=== PATIENT | male | born 1945 | race Caucasian/White ===

== ENCOUNTER 2017-02-03 17:33 | Emergency (ER) | payer BC ==
[2017-02-03 18:12] LABS: Hematocrit 40 % (42-52); Hemoglobin 13.2 g/dl (14.0-18.0); Mean Corpuscular HGB Conc 33 g/dl (31-36); Mean Corpuscular Hemoglobin 32 pg (27-31); Mean Corpuscular Volume 96 fL (80-94); Mean Platelet Volume 8 um3 (7.4-10.4); Red Blood Count 4.12 10^6/ul (4.0-5.4); Red Cell Distribution Width 13 % (10.5-15); White Blood Count 7.8 10^3/ul (3.5-10.8)
[2017-02-03 18:27] LABS: Albumin 4.4 g/dL (3.2-5.2); BUN/Creatinine Ratio 22.3 (8-20); Calcium 9.8 mg/dL (8.6-10.3); EGFR African American 56.5 (>60); EGFR Non-African American 43.9 (>60); Globulin 3.6 g/dL (2-4); Magnesium 1.9 mg/dL (1.9-2.7); Potassium 4.6 mmol/L (3.5-5.0); Total Bilirubin 0.4 mg/dL (0.2-1.0)
[2017-02-03 18:29] LABS: Troponin I 0.03 ng/mL (<0.04)
--- NOTE | 2017-02-03 18:54 | RAD ---
INDICATION: Bradycardia COMPARISON: Chest x-ray dated August 06, 2012 TECHNIQUE: Single AP portable view of the chest was obtained. FINDINGS: Image quality is compromised due to the relative inferiority of a portable chest x-ray. Stable postsurgical findings include sternotomy wires. There is mild cardiomegaly. There is faint atherosclerotic calcification overlying the arch of the aorta. The pulmonary vasculature is indistinct and mildly engorged. There are densities obscuring the bilateral lung bases and causing bilateral costophrenic angle blunting. IMPRESSION: Chest x-ray findings are most consistent with exacerbation of congestive heart failure possibly with atelectasis at the bilateral lung bases.
[2017-02-03 18:56] LABS: TSH (Thyroid Stimulating Horm) 3.39 mcIU/mL (0.34-5.60)
[2017-02-03 19:39] VITALS: BP 160/60
--- NOTE | 2017-02-03 19:39 | ED ---
Amari Liu Thomas, scribed for Ирина Borja MD on 02/03/17 at 1901 . Palpitations / Dysrhythmia - HPI Summary HPI Summary: The patient is a 71 y/o M presenting to the ED c/o bradycardia at 32 BPM that was measured earlier today at his urologists office. He called his emt i/99 Dr. Brewster because he was concerned over this rate, who referred him to the ED. In the ED, he has no other complaints. He has a PMHx of DM and hypothyroidism. He had an ASD and VSD repair performed in 1959 as well as an aortic valve replacement and aortic stent in 2012. He is on Coumadin. He is accompanied by his in the examination room. His PCP is Dr. Maria. - History of Current Complaint Chief Complaint: EDDysrhythmPalp Time Seen by Provider: 02/03/17 17:44 Hx Obtained From: Patient, Family/Cushion Former - is present Onset/Duration: Sudden Onset, Lasting Hours - heart rate measured today at his urologist's office, Resolved Timing: Constant Severity Currently: None Character: Slow Aggravating: Nothing Alleviating: Nothing Associated Signs & Symptoms: Negative - Allergy/Home Medications Allergies/Adverse Reactions: Allergies Allergy/AdvReac Type Severity Reaction Status Date / Time ENVIRONMENTAL/SEASONAL Allergy SNEEZING, Uncoded 12/04/15 08:37 HAYFEVER RUNNY NOSE, PMH/Surg Hx/FS Hx/Imm Hx Previously Healthy: No Endocrine/Hematology History: Reports: Hx Diabetes Denies: Hx Systemic Lupus Erythematosus Cardiovascular History: Reports: Hx Hypertension Denies: Hx Congestive Heart Failure, Hx Pacemaker/ICD History: Denies: Hx Dialysis, Hx Kidney Stones, Hx Renal Disease Musculoskeletal History: Denies: Hx Rheumatoid Arthritis Psychiatric History: Denies: Hx Panic Disorder - Cancer History Cancer Type, 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 heart valve replacement 07/25. hernia. TONSILECTOMY - Immunization History Date of Tetanus Vaccine: unknown Infectious Disease History: No Infectious Disease History: Denies: Traveled Outside the [place] in Last 30 Days - Family History Known Family History: Positive: Other - NO FH of esophageal disease. - Social History Lives: With Family Alcohol Use: None Substance Use Type: Reports: None Smoking Status (MU): Never Smoked Tobacco Have You Smoked in the Last Year: No Review of Systems Negative: Fever Positive: Other - Bradycardia at 32 BPM measured today at his urologist's office All Other Systems Reviewed And Are Negative: Yes Physical Exam Triage Information Reviewed: Yes Vital Signs On Initial Exam: Initial Vitals Temp Pulse Resp BP Pulse Ox 98.2 F 32 20 173/56 97 02/03/17 17:35 02/03/17 17:35 02/03/17 17:35 02/03/17 17:35 02/03/17 17:35 Vital Signs Reviewed: Yes Appearance: Positive: Well-Appearing, No Pain Distress Skin: Positive: Warm, Skin Color Reflects Adequate Perfusion, Dry Eyes: Positive: EOMI, AFSANEH ENT: Positive: Pharynx normal, TMs normal Neck: Positive: Supple, Nontender Respiratory/Lung Sounds: Positive: Clear to Auscultation, Breath Sounds Present. Negative: Rales, Rhonchi, Wheezes Cardiovascular: Positive: RRR, Other - No gallop. Negative: Murmur, Rub Abdomen Description: Positive: Nontender, Soft, Other: - No rebound. Negative: Distended, Guarding Bowel Sounds: Positive: Present Musculoskeletal: Positive: Strength/ROM Intact. Negative: Edema Left, Edema Right Neurological: Positive: Sensory/Motor Intact, Alert, Oriented to Person Place, Time, CN Intact II-III Psychiatric: Positive: Affect/Mood Appropriate - [place] Coma Scale Coma Scale Total: 15 Diagnostics - Vital Signs Vital Signs Temp Pulse Resp BP Pulse Ox 02/03/17 17:35 98.2 F 32 20 173/56 97 - Laboratory Lab Results: Lab Results 02/03/17 02/03/17 02/03/17 Range/Units 18:00 18:00 18:00 WBC 7.8 (3.5-10.8) 10^3/ul RBC 4.12 (4.0-5.4) 10^6/ul Hgb 13.2 L (14.0-18.0) g/dl Hct 40 L (42-52) % MCV 96 H (80-94) fL MCH 32 H (27-31) pg MCHC 33 (31-36) g/dl RDW 13 (10.5-15) % Plt Count 254 (150-450) 10^3/ul MPV 8 (7.4-10.4) um3 Neut % (Auto) 63.8 (38-83) % Lymph % (Auto) 17.6 L (25-47) % [place] % (Auto) 15.1 H (1-9) % Eos % (Auto) 3.0 (0-6) % Baso % (Auto) 0.5 (0-2) % Absolute Neuts (auto) 5.0 (1.5-7.7) 10^3/ul Absolute Lymphs (auto) 1.4 (1.0-4.8) 10^3/ul Absolute Monos (auto) 1.2 H (0-0.8) 10^3/ul Absolute Eos (auto) 0.2 (0-0.6) 10^3/ul Absolute Basos (auto) 0 (0-0.2) 10^3/ul Absolute Nucleated RBC 0 10^3/ul Nucleated RBC % 0 INR (Anticoag Therapy) (0.89-1.11) Sodium 136 (133-145) mmol/L Potassium 4.6 (3.5-5.0) mmol/L Chloride 105 (101-111) mmol/L Carbon Dioxide 23 (22-32) mmol/L Anion Gap 8 (2-11) mmol/L BUN 35 H (6-24) mg/dL Creatinine 1.57 H (0.67-1.17) mg/dL Est GFR ( Amer) 56.5 (>60) Est GFR (Non-Af Amer) 43.9 (>60) BUN/Creatinine Ratio 22.3 H (8-20) Glucose 128 H (70-100) mg/dL Lactic Acid 0.9 (0.5-2.0) mmol/L Calcium 9.8 (8.6-10.3) mg/dL Magnesium 1.9 (1.9-2.7) mg/dL Total Bilirubin 0.40 (0.2-1.0) mg/dL AST 19 (13-39) U/L ALT 13 (7-52) U/L Alkaline Phosphatase 41 (34-104) U/L Troponin I 0.03 (<0.04) ng/mL Total Protein 8.0 (6.4-8.9) g/dL Albumin 4.4 (3.2-5.2) g/dL Globulin 3.6 (2-4) g/dL Albumin/Globulin Ratio 1.2 (1-3) TSH Pending 02/03/17 Range/Units 18:00 WBC (3.5-10.8) 10^3/ul RBC (4.0-5.4) 10^6/ul Hgb (14.0-18.0) g/dl Hct (42-52) % MCV (80-94) fL MCH (27-31) pg MCHC (31-36) g/dl RDW (10.5-15) % Plt Count (150-450) 10^3/ul MPV (7.4-10.4) um3 Neut % (Auto) (38-83) % Lymph % (Auto) (25-47) % [place] % (Auto) (1-9) % Eos % (Auto) (0-6) % Baso % (Auto) (0-2) % Absolute Neuts (auto) (1.5-7.7) 10^3/ul Absolute Lymphs (auto) (1.0-4.8) 10^3/ul Absolute Monos (auto) (0-0.8) 10^3/ul Absolute Eos (auto) (0-0.6) 10^3/ul Absolute Basos (auto) (0-0.2) 10^3/ul Absolute Nucleated RBC 10^3/ul Nucleated RBC % INR (Anticoag Therapy) 1.57 H (0.89-1.11) Sodium (133-145) mmol/L Potassium (3.5-5.0) mmol/L Chloride (101-111) mmol/L Carbon Dioxide (22-32) mmol/L Anion Gap (2-11) mmol/L BUN (6-24) mg/dL Creatinine (0.67-1.17) mg/dL Est GFR ( Amer) (>60) Est GFR (Non-Af Amer) (>60) BUN/Creatinine Ratio (8-20) Glucose (70-100) mg/dL Lactic Acid (0.5-2.0) mmol/L Calcium (8.6-10.3) mg/dL Magnesium (1.9-2.7) mg/dL Total Bilirubin (0.2-1.0) mg/dL AST (13-39) U/L ALT (7-52) U/L Alkaline Phosphatase (34-104) U/L Troponin I (<0.04) ng/mL Total Protein (6.4-8.9) g/dL Albumin (3.2-5.2) g/dL Globulin (2-4) g/dL Albumin/Globulin Ratio (1-3) TSH Result Diagrams: 02/03/17 18:00 02/03/17 18:00 Lab Statement: Any lab studies that have been ordered have been reviewed, and results considered in the medical decision making process. - Radiology CXR Xray Interpretation: No Acute Changes - Chest x-ray findings are most consistent with exacerbation of congestive heart failure possibly with atelectasis at the bilateral lung bases. ED physician has reviewed this report and agrees. Radiology Interpretation Completed By: Radiologist - EKG 17:46 Cardiac Rate: NL - 93 BPM EKG Interpretation: Ventricular trigeminy. Early RBBB. EKG Comparison: Other - Compared to 17:46, the RBBB is not new but the ventricular trigeminy is. Course/Dx - Course Course Of Treatment: pt is in trigeminy which made his pulse strip picker as 32 although he had a normal bp and no symptoms. Pt was discussed with Dr. Del Valle who found a holter monitor report with hundreds of pvc's but no ecg with true trigeminy, she also noticed that he had been getting cortisol shots which can cause increased pvc's in addition he does report increased salt intake. Pt's electrolytes are good and he will followup with his emt i/99 Dr. Brewster - Diagnoses Provider Diagnoses: Palpitations - Physician Notifications Discussed Care Of Patient With: Kiley Del Valle Time Discussed With Above Provider: 18:45 Instructed by Provider To: Other - I consulted with Dr. Del Valle, emt i/99, regarding patient care. The patient has frequent PVCs and has been eating too much salt. He has cortisol shots to his knee that may cause the trigeminy. Discharge - Discharge Plan Condition: Stable Disposition: HOME Patient Education Materials: Palpitations (ED) Referrals: Cristi Maria MD [Primary Care Provider] - 3 Days The documentation as recorded by the Amari short Thomas accurately reflects the service I personally performed and the decisions made by me, Ирина Borja MD.
== END 2017-02-03 19:57 | disposition home or self-care (01) ==
LOC: ED 17:33
DX: R00.2 Palpitations (principal); R00.1 Bradycardia, unspecified
CPT/HCPCS: 36415; 71010; 80053; 83605; 83735; 84443; 84484; 85025; 85610; 93005; 99282

== ENCOUNTER → 2018-08-30 17:59 | Emergency (ER) | payer MEDICARE ==
[~2018-08-30 17:59] MED LIST: ALPRAZolam TAB* 0.5 MG PO ONE
--- NOTE | 2018-08-30 20:20 | ED ---
Complex/Multi-Sys Presentation - HPI Summary HPI Summary: This patient is a 73 year old M [facility] accompanied by his with a chief complaint of elevated BP since 3 days ago. He notes he measured it as 173/81 and notes that his systolic blood pressure is usually 125-135 mmHg. The patient notes that his blood pressure is usually under control with medication and his symptoms began after receiving steroid injections 1 week ago. The patient rates the pain 0/10 in severity. Symptoms aggravated by nothing. Symptoms alleviated by nothing. Patient reports increased exercise starting 1 week ago and feeling anxious since this morning. Patient denies CP, HAMILTON, nausea, ringing or rushing noise in ears, or epistaxis. Patient has hx of HTN and aortic valve replacement. - History Of Current Complaint Chief Complaint: EDHypertension Time Seen by Provider: 08/30/18 19:51 Hx Obtained From: Patient Onset/Duration: Gradual Onset, Lasting Days - 3 days, Still Present Timing: Constant Severity Currently: Mild Severity Initially: Mild Aggravating Factor(s): nothing Alleviating Factor(s): nothing Associated Signs And Symptoms: Positive: Other - elevated blood pressure, anixety. Negative: Headache, Chest Pain, Nausea - Allergies/Home Medications Allergies/Adverse Reactions: Allergies Allergy/AdvReac Type Severity Reaction Status Date / Time No Known Allergies Allergy Verified 08/30/18 18:07 Home Medications: Home Medications Calcium Polycarbophil TAB* [Fibercon TAB*] 625 mg PO DAILY 08/30/18 [History Confirmed 08/30/18] Chlorthalidone TAB* [Hygroton TAB*] 25 mg PO DAILY 08/30/18 [History Confirmed 08/30/18] Cinacalcet TAB* [Sensipar TAB*] 30 mg PO DAILY 08/30/18 [History Confirmed 08/30] Hyoscyamine TAB* [Anaspaz 0.125 MG TAB*] 0.125 mg PO TID PRN 08/30/18 [History Confirmed 08/30/18] Tramadol HCl 50 mg PO Q6H PRN 08/30/18 [History Confirmed 08/30/18] PMH/Surg Hx/FS Hx/Imm Hx Endocrine/Hematology History: Reports: Hx Diabetes Denies: Hx Systemic Lupus Erythematosus Cardiovascular History: Reports: Hx Hypercholesterolemia, Hx Hypertension, Hx Valvular Heart Disease Denies: Hx Angina, Hx Congestive Heart Failure, Hx Coronary Artery Disease, Hx Myocardial Infarction, Hx Pacemaker/ICD Respiratory History: Denies: Hx Asthma, Hx Chronic Obstructive Pulmonary Disease (COPD) History: Denies: Hx Dialysis, Hx Kidney Stones, Hx Renal Disease Musculoskeletal History: Denies: Hx Rheumatoid Arthritis Psychiatric History: Denies: Hx Panic Disorder - Cancer History Cancer Type, Location and Year: testicular ca,1985 Hx Chemotherapy: No Hx Radiation Therapy: Yes - Surgical History Surgery Procedure, Year, and Place: ASD{AORTIC SEPTUM DEFECT} and VSD{ VENTRICULAR SEPTUM DEFECT} A CHILD, numerous BILATERAL knee surgeries. heart valve replacement 07/25. hernia. TONSILECTOMY - Immunization History Date of Tetanus Vaccine: unknown Infectious Disease History: No Infectious Disease History: Denies: Hx Shingles, Hx Tuberculosis, Traveled Outside the [place] in Last 30 Days - Family History Known Family History: Positive: Other - NO FH of esophageal disease. - Social History Alcohol Use: Rare Substance Use Type: Reports: None Smoking Status (MU): Never Smoked Tobacco Have You Smoked in the Last Year: No Review of Systems Positive: Other - elevated BP ENT: Negative - negative ringing or rushing noise in the earrs Negative: Epistaxis Negative: Chest Pain Negative: Nausea Negative: Headache All Other Systems Reviewed And Are Negative: Yes Physical Exam - Summary Physical Exam Summary: VITAL SIGNS: Reviewed. GENERAL: Patient is a well-developed and nourished MALE who is lying comfortable in the stretcher. Patient is not in any acute respiratory distress. HEAD AND FACE: No signs of trauma. No ecchymosis, hematomas or skull depressions. No sinus tenderness. EYES: PERRLA, EOMI x 2, No injected conjunctiva, no nystagmus. EARS: Hearing grossly intact. Ear canals and tympanic membranes are within normal limits. MOUTH: Oropharynx within normal limits. NECK: Supple, trachea is midline, no adenopathy, no JVD, no carotid bruit, no c- spine tenderness, neck with full ROM. CHEST: Symmetric, no tenderness at palpation LUNGS: Clear to auscultation bilaterally. No wheezing or crackles. CVS: Regular rate and rhythm, S1 and S2 present, no murmurs or gallops appreciated. ABDOMEN: Soft, non-tender. No signs of distention. No rebound no guarding, and no masses palpated. Bowel sounds are normal. EXTREMITIES: FROM in all major joints, no edema, no cyanosis or clubbing. NEURO: Alert and oriented x 3. No acute neurological deficits. Speech is normal and follows commands. SKIN: Dry and warm Triage Information Reviewed: Yes Vital Signs On Initial Exam: Initial Vitals Temp Pulse Resp BP Pulse Ox 97.4 F 84 16 173/80 99 08/30/18 18:02 08/30/18 18:02 08/30/18 18:02 08/30/18 18:02 08/30/18 18:02 Vital Signs Reviewed: Yes Diagnostics - Vital Signs Vital Signs Temp Pulse Resp BP Pulse Ox 08/30/18 19:01 97.8 F 83 16 171/70 97 08/30/18 18:02 97.4 F 84 16 173/80 99 - Laboratory Lab Statement: Any lab studies that have been ordered have been reviewed, and results considered in the medical decision making process. Complex Multi-Symp Course/Dx Course Of Treatment: This patient is a 73 year old M with hx HTN and aortic valve replacement presenting to [facility] with a chief complaint of elevated BP since 3 days ago. He notes he measured it as 173/81 and notes that his systolic blood pressure is usually 125-135 mmHg. Patient reports increased exercise starting 1 week ago and feeling anxious since this morning. Patient denies CP, HAMILTON, nausea, ringing or rushing noise in ears, or epistaxis. Patient has hx of HTN and aortic valve replacement. In the ED course the patient was given xanex. The patient reported feeling better after taking the xanex. Patient will be discharged home with and follow up from his athlete manager. Dx HTN and anxiety. The patient is agreeable with this plan. - Diagnoses Provider Diagnoses: Hypertension, Anxiety Discharge - Sign-Out/Discharge Documenting (check all that apply): Patient Departure - discharge home Patient Received Moderate/Deep Sedation with Procedure: No - Discharge Plan Condition: Stable Disposition: HOME Patient Education Materials: Hypertension (ED), Anxiety (ED) Referrals: Cristi Maria MD [Primary Care Provider] - Additional Instructions: Follow up with your athlete manager in 1-2 days. Return to the emergency department with any new or worsening symptoms. - Attestation Statements Document Initiated by Scribe: Yes Documenting Scribe: Belinda Alexander Provider For Whom Scribe is Documenting (Include Credential): Yariel Davenport MD Scribe Attestation: I, Belinda Alexander, scribed for Yariel Davenport MD on 08/30/18 at 2109. Status of Scribe Document: Ready
[2018-08-30 21:29] VITALS: BP 127/58
== END | disposition home or self-care (01) ==
LOC: ED 17:59
DX: I10 Essential (primary) hypertension (principal); F41.9 Anxiety disorder, unspecified; I25.2 Old myocardial infarction; E11.9 Type 2 diabetes mellitus without complications; E78.00 Pure hypercholesterolemia, unspecified; Z95.810 Presence of automatic (implantable) cardiac defibrillator; Z85.47 Personal history of malignant neoplasm of testis
CPT/HCPCS: 99282; A9270-GY

== ENCOUNTER → 2019-06-10 09:11 | Emergency (ER) | payer MEDICARE ==
[~2019-06-10 09:11] MED LIST changes: -ALPRAZolam TAB* 0.5 MG PO ONE; +oxyCODONE/Acetamin 5/325 MG* TAB PO ONE
--- NOTE | 2019-06-10 15:31 | ED ---
Lower Extremity - HPI Summary HPI Summary: This patient is a 74-year-old male with a history of gout and bilateral knee and ankle pain presenting to the ED by EMS. Pt arrives stating he is here because he was asked to go to the ortho clinic, but ambulance said they had to bring him here. He states he has been having a gout flare up and currently on medications. He also states he is in need of a knee replacement and this is scheduled for July [address] Silva. Over the past 2 weeks, the pain has been worsening and he feels he is no longer able to flex the knee, get from lying to sitting or sitting to standing. He denies any swelling, redness, warmth. He has also been having pain in his ankles, but denies swelling or redness. No fevers at home. Pt agitated he had to come to the ED. Currently on pain medications and gout medications. He was able to see Dr. Johnson 4 days ago who aspirated the knee (unknown results per pt.) Pt was also seen for ankle pain by Dr. Boyle. States he has been using a wheelchair at home. Unable to get from house to ortho and is concerned he is "stuck" in the house with no help. - History of Current Complaint Chief Complaint: EDExtremityLower Stated Complaint: LEFT KNEE PAIN PER EMS Time Seen by Provider: 06/10/19 09:26 Hx Obtained From: Patient, Family/Animal Nutritionist, EMS, Medical Records Mechanism Of Injury: Other - no known trauma Severity Initially: Moderate Severity Currently: Moderate Pain Intensity: 10 Pain Scale Used: 0-10 Numeric Location: Is Discrete @ - left knee pain Character Of Pain: Aching Associated Signs And Symptoms: Negative: Swelling, Redness, Bruising, Weakness Aggravating Factor(s): Standing, Ambulation Alleviating Factor(s): Rest Able to Bear Weight: No - Risk Factors Gout Risk Factors: Age Over 40, Male Septic Arthritis Risk Factor: Extremes of Age - Allergies/Home Medications Allergies/Adverse Reactions: Allergies Allergy/AdvReac Type Severity Reaction Status Date / Time No Known Allergies Allergy Verified 06/10/19 17:03 PMH/Surg Hx/FS Hx/Imm Hx Previously Healthy: Yes Endocrine/Hematology History: Reports: Hx Diabetes Denies: Hx Systemic Lupus Erythematosus Cardiovascular History: Reports: Hx Hypercholesterolemia, Hx Hypertension, Hx Valvular Heart Disease Denies: Hx Angina, Hx Congestive Heart Failure, Hx Coronary Artery Disease, Hx Myocardial Infarction, Hx Pacemaker/ICD Respiratory History: Denies: Hx Asthma, Hx Chronic Obstructive Pulmonary Disease (COPD) History: Denies: Hx Dialysis, Hx Kidney Stones, Hx Renal Disease Musculoskeletal History: Denies: Hx Rheumatoid Arthritis Psychiatric History: Denies: Hx Panic Disorder - Cancer History Cancer Type, 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 heart valve replacement 07/25. hernia. TONSILECTOMY - Immunization History Date of Tetanus Vaccine: unknown Hx Pertussis Vaccination: No Immunizations Up to Date: Yes Infectious Disease History: No Infectious Disease History: Denies: Hx Shingles, Hx Tuberculosis, Traveled Outside the [place] in Last 30 Days - Family History Known Family History: Positive: Other - NO FH of esophageal disease. - Social History Occupation: Unemployed Lives: With Family Alcohol Use: Rare Hx Substance Use: No Substance Use Type: Reports: None Hx Tobacco Use: No Smoking Status (MU): Never Smoked Tobacco Have You Smoked in the Last Year: No Review of Systems Negative: Fever, Chills, Fatigue, Skin Diaphoresis Negative: Palpitations, Chest Pain Negative: Shortness Of Breath Genitourinary: Negative Positive: no symptoms reported, see HPI Positive: Arthralgia - left knee pain. Negative: Myalgia Skin: Negative All Other Systems Reviewed And Are Negative: Yes Physical Exam Triage Information Reviewed: Yes Vital Signs On Initial Exam: Initial Vitals Temp Pulse Resp BP Pulse Ox 99 F 81 18 133/58 95 06/10/19 09:19 06/10/19 09:19 06/10/19 09:19 06/10/19 09:19 06/10/19 09:19 Vital Signs Reviewed: Yes Appearance: Positive: Well-Appearing, Well-Nourished Skin: Positive: Warm, Skin Color Reflects Adequate Perfusion Head/Face: Positive: Normal Head/Face Inspection Eyes: Positive: EOMI, AFSANEH, Conjunctiva Clear Neck: Positive: Supple, No Lymphadenopathy Respiratory/Lung Sounds: Positive: Clear to Auscultation, Breath Sounds Present Cardiovascular: Positive: RRR, Pulses are Symmetrical in both Upper and Lower Extremities Musculoskeletal: Positive: Pain @ - left knee pain, small amount of fluid to the anterior knee - no erythema, warmth, swelling, or bruising Neurological: Positive: Alert, Oriented to Person Place, Time, Speech Normal Psychiatric: Positive: Affect/Mood Appropriate AVPU Assessment: Alert Procedures - Sedation Patient Received Moderate/Deep Sedation with Procedure: No Diagnostics - Vital Signs Vital Signs Temp Pulse Resp BP Pulse Ox 06/10/19 12:30 16 06/10/19 09:19 99 F 81 18 133/58 95 - Laboratory Lab Statement: Any lab studies that have been ordered have been reviewed, and results considered in the medical decision making process. Lower Extremity Course/Dx - Course Course Of Treatment: Pt arrives agitated he had to come to ED and not ortho office. Pt appears in NAD. States lying still, he has no pain. With movement , 10/10 pain. Physical exam shows large osteoarthritic knee with no erythema, warmth or swelling. Pt is afebrile and states he had not been having fevers at home. According to records, pt had a knee aspiration (states fluid did not return) [address] Boyle. These results show no evidence of crystals or infection. + for blood. Xray obtained of the ankle, which showed no fracture. He was seen for possible gout flare, currently on medications for gout. During stay, he states he needs transport to the ortho office. At this time, he has no appt. I have offered to call ortho for appt, but pt refuses, and states will call himself. I have asked SALAZAR [place] to come speak with patient for options of transport from home to his appts and home to his surgical appt. SALAZAR note reviewed. (see separate) While here, pt was given 1 percoset for his pain. He states he has secured an appt at ortho at 1:45pm and believes with help into the car, he will be able to attend the appt. (see separate SALAZAR note), patient states ortho is willing to help him from car to office. Pt is stable upon discharge. There is a concern that pt is unable to care for himself despite at home. With pt unable to bend at the knee, I have offered admission to the hospital. Pt adamantly declines. States he prefers to see Dr. Silva to see if he is able to secure an earlier appt for surgery. Pt was helped into vehicle by staff. - Diagnoses Differential Diagnosis/HQI/PQRI: Positive: Contusion, Gout, Infection, Other - osteoarthritis Provider Diagnoses: Left knee pain Discharge ED - Sign-Out/Discharge Documenting (check all that apply): Patient Departure - Discharge Plan Condition: Stable Disposition: HOME Referrals: Cristi Maria MD [Primary Care Provider] - - Billing Disposition and Condition Condition: STABLE Disposition: Home - Attestation Statements Provider Attestation: I was available for consult. This patient was seen by the BERNADETTE. The patient was not presented to, seen by, or examined by me. Orlando Umana MD
[2019-06-10 16:03] VITALS: BP 146/77
== END | disposition home or self-care (01) ==
LOC: ED 09:11
DX: M25.562 Pain in left knee (principal); E11.9 Type 2 diabetes mellitus without complications; Z79.84 Long term (current) use of oral hypoglycemic drugs; I10 Essential (primary) hypertension; E78.00 Pure hypercholesterolemia, unspecified; Z79.82 Long term (current) use of aspirin; Z79.01 Long term (current) use of anticoagulants; Z95.2 Presence of prosthetic heart valve
CPT/HCPCS: 99282; A9270-GY

== ENCOUNTER 2019-06-10 16:58 | Inpatient (IN) | payer MEDICARE ==
--- NOTE | 2019-06-10 17:08 | ED ---
Lower Extremity - HPI Summary HPI Summary: Patient is a 74 y/o M presenting to the ED via EMS for a chief complaint of right knee pain and swelling. Patient has had a history of gout in the right knee for the last year. Patient was seen at [facility] earlier on 06/10/19 for the same symptoms and referred to Dr. Silva. At Dr. Silva's office, patient had an arthrocentesis and was injected with steroids on the right knee. Patient was sent from Dr. Silva's office for admission to [facility]. Patient denies fever. PMHx is significant for kidney problems. He takes Warfarin for a PSHx of cardiac surgery. Patient denies tobacco or drug use, but admits occasional alcohol use. - History of Current Complaint Chief Complaint: EDExtremityLower Stated Complaint: LT KNNE GOUT PER EMS Time Seen by Provider: 06/10/19 17:01 Hx Obtained From: Patient Mechanism Of Injury: Other Onset of Pain: Days Onset/Duration: Still Present Severity Initially: Severe Severity Currently: Severe Pain Intensity: 7 Pain Scale Used: 0-10 Numeric Timing: Constant Location: Is Discrete @ - Right knee Associated Signs And Symptoms: Positive: Swelling - Right knee, Knee Pain - Right Aggravating Factor(s): Nothing Alleviating Factor(s): Nothing - Allergies/Home Medications Allergies/Adverse Reactions: Allergies Allergy/AdvReac Type Severity Reaction Status Date / Time No Known Allergies Allergy Verified 06/10/19 17:03 Home Medications: Home Medications Acetaminophen TAB* [Tylenol TAB*] 650 mg PO Q6H PRN 06/10/19 [History Confirmed 06/10/19] Ascorbic Acid TAB* [Vitamin C TAB*] 500 mg PO DAILY 06/10/19 [History Confirmed 06/10/19] Aspirin EC TAB* [Ecotrin EC Low Dose 81 MG*] 81 mg PO DAILY 06/10/19 [History Confirmed 06/10/19] Cetirizine* [ZyrTEC 10 MG TAB*] 10 mg PO DAILY 06/10/19 [History Confirmed 06/10] Cinacalcet TAB* [Sensipar TAB*] 30 mg PO DAILY 06/10/19 [History Confirmed 06/10] Diclofenac 1% GEL (NF) [Voltaren 1% GEL (NF)] 1 applic TOPICAL BID 06/10/19 [ History Confirmed 06/10/19] Febuxostat(NF) [Uloric(NF)] 40 mg PO DAILY 06/10/19 [History Confirmed 06/10/19] Ferrous Sulfate TAB* 325 mg PO DAILY 06/10/19 [History Confirmed 06/10/19] Levothyroxine TAB* [Synthroid TAB*] 50 mcg PO EVERY OTHER DAY 06/10/19 [History Confirmed 06/10/19] Losartan TAB* [Cozaar TAB*] 50 mg PO DAILY 06/10/19 [History Confirmed 06/10/19] Mirabegron (NF) [Myrbetriq (NF)] 25 mg PO DAILY 06/10/19 [History Confirmed ] Multivitamins/Minerals TAB* [Theragran/minerals TAB*] 1 tab PO DAILY 06/10/19 [ History Confirmed 06/10/19] Warfarin TAB(*) [Coumadin TAB(*)] 2 mg PO DAILY 06/10/19 [History Confirmed ] oxyCODONE/Acetamin 5/325 MG* [Percocet 5/325 TAB*] 1 tab PO Q6H PRN 06/10/19 [ History Confirmed 06/10/19] traMADol TAB* [Ultram*] 50 mg PO Q6HR PRN 06/10/19 [History Confirmed 06/10/19] PMH/Surg Hx/FS Hx/Imm Hx Previously Healthy: Yes Endocrine/Hematology History: Reports: Hx Anticoagulant Therapy, Hx Diabetes Denies: Hx Systemic Lupus Erythematosus Cardiovascular History: Reports: Hx Hypercholesterolemia, Hx Hypertension, Hx Valvular Heart Disease Denies: Hx Angina, Hx Congestive Heart Failure, Hx Coronary Artery Disease, Hx Myocardial Infarction, Hx Pacemaker/ICD Respiratory History: Denies: Hx Asthma, Hx Chronic Obstructive Pulmonary Disease (COPD) History: Reports: Hx Renal Disease Denies: Hx Dialysis, Hx Kidney Stones Musculoskeletal History: Reports: Hx Gout Denies: Hx Rheumatoid Arthritis Sensory History: Denies: Hx Legally Blind, Hx Deafness Opthamlomology History: Denies: Hx Legally Blind EENT History: Denies: Hx Deafness Psychiatric History: Denies: Hx Panic Disorder - Cancer History Cancer Type, 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 heart valve replacement 07/25. hernia. TONSILECTOMY - Immunization History Date of Tetanus Vaccine: unknown Infectious Disease History: No Infectious Disease History: Denies: Hx Shingles, Hx Tuberculosis, Traveled Outside the [place] in Last 30 Days - Family History Known Family History: Positive: Other - NO FH of esophageal disease. Negative: Diabetes - Social History Occupation: Retired Lives: With Family Alcohol Use: Rare Hx Substance Use: No Substance Use Type: Reports: None Hx Tobacco Use: No Smoking Status (MU): Never Smoked Tobacco Have You Smoked in the Last Year: No Review of Systems Negative: Fever Positive: Arthralgia - Right knee, Edema - Right knee All Other Systems Reviewed And Are Negative: Yes Physical Exam - Summary Physical Exam Summary: Constitutional: Well-developed, Well-nourished, Alert. (-) Distressed Skin: Warm, Dry HENT: Normocephalic; Atraumatic Eyes: Conjunctiva normal Neck: Musculoskeletal ROM normal neck. (-) JVD, (-) Stridor, (-) Tracheal deviation Cardio: Rhythm regular, rate normal, Heart sounds normal; Intact distal pulses; Radial pulses are 2+ and symmetric. (-) Murmur Pulmonary/Chest wall: Effort normal. (-) Respiratory distress, (-) Wheezes, (-) Rales Abd: Soft, (-) tenderness, (-) Distension, (-) Guarding, (-) Rebound Musculoskeletal: Right knee is very swollen with no overlying erythema and no warmth, patient refuses to range his right LE due to pain, there is also swelling to the right ankle with no overlying erythema or warmth. Lymph: (-) Cervical adenopathy Neuro: Alert, Oriented x3 Psych: Mood and affect Normal Triage Information Reviewed: Yes Vital Signs On Initial Exam: Initial Vitals Temp Pulse Resp BP Pulse Ox 99.2 F 96 16 136/52 96 06/10/19 17:01 06/10/19 17:01 06/10/19 17:01 06/10/19 17:01 06/10/19 17:01 Vital Signs Reviewed: Yes Procedures - Sedation Patient Received Moderate/Deep Sedation with Procedure: No Diagnostics - Vital Signs Vital Signs Temp Pulse Resp BP Pulse Ox 06/10/19 17:01 99.2 F 96 16 136/52 96 - Laboratory Result Diagrams: 06/10/19 17:51 06/10/19 17:51 Lab Statement: Any lab studies that have been ordered have been reviewed, and results considered in the medical decision making process. Lower Extremity Course/Dx - Course Course Of Treatment: Patient is here with knee pain and swelling. Patient's knee is very swollen and he has limited range of motion secondary to pain. Patient has no overlying erythema or warmth. Patient seen here earlier but did not want to stay for admission after he was asked multiple times. Patient was discharged with straight to the orthopedic surgeon's office for his scheduled appointment. At the surgeon's office, an arthrocentesis was performed and a steroid injection was performed. Patient was sent back here for admission for pain control as he cannot walk. Patient had blood performed showed a leukocytosis of 21, a CRP of 500 and an ESR greater than 120. Orthopedic surgery was called here and they recommended nothing by mouth at midnight for possible washout in the morning pending the arthrocentesis results. Patient was admitted to the hospitalist - Diagnoses Provider Diagnoses: Septic arthritis, Swelling of right knee joint, Right knee pain - Physician Notifications Discussed Care Of Patient With: Raul Miller - At 19:51, Dr. Miller recommends NPO after midnight and holding off on antibiotics. At 21:10, Dr. Reynaga agrees to admit the patient to [facility] with a diagnosis of right knee pain, right knee swelling, and septic arthritis. Time Discussed With Above Provider: 19:51 Instructed by Provider To: Admit As Inpatient Discharge ED - Sign-Out/Discharge Documenting (check all that apply): Patient Departure - Admit - Discharge Plan Condition: Stable Disposition: ADMITTED TO [facility] Referrals: Cristi Maria MD [Primary Care Provider] - - Billing Disposition and Condition Condition: STABLE Disposition: Admitted to [facility] - Attestation Statements Document Initiated by Scribe: Yes Documenting Scribe: Antonietta Weiss Provider For Whom Jah is Documenting (Include Credential): Orlando Umana MD Scribe Attestation: Antonietta Liu, scribed for Orlando Umana MD on 06/10/19 at [id number]. Scribe Documentation Reviewed: Yes Provider Attestation: The documentation as recorded by the Antonietta short accurately reflects the service I personally performed and the decisions made by me, Orlando Umana MD Status of Scribe Document: Viewed
[2019-06-10 18:03] LABS: Hematocrit 27 % (42-52); Hemoglobin 8.8 g/dL (14.0-18.0); Mean Corpuscular HGB Conc 33 g/dL (31-36); Mean Corpuscular Hemoglobin 31 pg (27-31); Mean Corpuscular Volume 94 fL (80-94); Mean Platelet Volume 7.2 fL (7.4-10.4); Platelet Count 384 10^3/uL (150-450); Red Blood Count 2.87 10^6 /uL (4.18-5.48); Red Cell Distribution Width 16 % (10-15); White Blood Count 21.4 10^3/uL (3.5-10.8)
[2019-06-10 18:04] LABS: ABS Lymphocytes 0.3 10^3/ul (1.0-4.8); ABS Monocytes 2.1 10^3/ul (0-0.8); ABS Neutrophils 18.9 10^3/ul (1.5-7.7); Lymphocyte % 1.3 %
[2019-06-10 18:09] LABS: INR 2.09 (0.82-1.09)
[2019-06-10 18:16] LABS: Albumin 3.3 g/dL (3.2-5.2); Potassium 4.9 mmol/L (3.5-5.0); Total Bilirubin 0.8 mg/dL (0.2-1.0)
[2019-06-10 18:22] LABS: Albumin/Globulin Ratio 0.8 (1-3); BUN/Creatinine Ratio 20.4 (8-20); EGFR African American 31.5 (>60); Total Protein 7.3 g/dL (6.4-8.9)
[2019-06-10 18:40] LABS: C Reactive Protein 502.2 mg/L (<8.01)
[2019-06-10 19:28] LABS: Erythrocyte Sed Rate > 120 mm/Hr (0-19)
[2019-06-10 22:50] LABS: Uric Acid 4.2 mg/dL (4.4-7.6)
[2019-06-10] MEDS ORDERED: cefTRIAXone(*) 2 GM in NS 0.9% 100 ML* 100 ML IVPB ONE (22:51)
[2019-06-10] MEDS ORDERED: Acetaminophen TAB* 325 MG PO PRN (22:57)
[2019-06-10] MEDS ORDERED: NS 0.9% IV ONE (23:15)
[2019-06-10] MEDS ORDERED: Dextrose 50% Syringe 50 ML* 25 GM/50 ML SYRINGE IV PUSH PRN (23:37)
[2019-06-11] MEDS: Tamsulosin CAP* 0.4 MG PO SCH ×2 (00:26→16:45)
[2019-06-11] MEDS: Cetirizine* 10 MG TAB PO SCH ×2 (00:27→07:48)
[2019-06-11] MEDS: Ascorbic Acid TAB* 500 MG PO SCH ×2 (00:27→07:47)
[2019-06-11] MEDS: oxyCODONE/Acetamin 5/325 MG* TAB PO PRN ×2 (00:27→21:43)
[2019-06-11] MEDS: Finasteride TAB* 5 MG PO SCH ×2 (00:28→16:45)
[2019-06-11] MEDS: Warfarin TAB(*) 2 MG PO SCH ×2 (00:28→16:45)
--- NOTE | 2019-06-11 00:59 | HP ---
HISTORY AND PHYSICAL: DATE OF ADMISSION: 06/10/19 ADMITTING PROVIDER: Willie Reynaga MD PRIMARY CARE PROVIDER: Dr. Cristi Maria. OUTPATIENT ORTHOPEDIC DOCTOR: Dr. Silva. CHIEF COMPLAINT: 02/21 pain in his left knee and bilateral first toes preventing ambulation for the last 4 days. HISTORY OF PRESENT ILLNESS: Dylan Sultana is a 74-year-old male with past medical history of yyp-jskyorg-smanwhjjt diabetes mellitus; gout; hypothyroidism ; aortic stenosis, status post mechanical aortic valve, on Coumadin with reported goal INR of 2.6 to 3.2; BPH; gout; VSD, status post repair; ASD; thoracic aortic aneurysm. He has severe osteoarthritis as well in his knees and every 3 months he gets arthrocentesis as a therapeutic means to controlling this rather than getting knee replacements. Eight days ago, on 06/03/19 , he had an injection with Dr. Turcios into his left first toe. He denies that that was a cortisone shot, but cannot recall what it was. He thinks he took 6 tabs of Medrol Dosepak the day prior for worsened pain in that toe. After the injection by Dr. Turcios, the pain actually worsened. He was seen by Dr. Boyle mid week, possible , 06/06/19 and had what he describes as an arthrocentesis that was clear and not concerning for infection. However, for the last 4 days, he says he has not been able to walk with the severe pain in both the toes and the left knee which he says he can barely bend due to pain. He presented to [facility] Emergency Room on morning of admission and then was transferred directly for an acute same day visit with Dr. Silva who did another arthrocentesis and per provideded paperwork he tapped 40 cc of bloody and cloudy fluid and that was sent for culture, Gram stain and crystal analysis. He was then sent directly from the office back to the emergency room with the note to get some labs including a CBC and CRP. Initial evaluation in the [facility] Emergency Room has included leukocytosis of 21.4, CRP of 502, ESR of greater than 120. Initial temperature was 99.2 and increased to 100.1. His heart rate has been elevated, initially 96. Dr. Umana who spoke with the on- call orthopedic provider, Dr. Miller, and reportedly went over the lab results and reportedly there was consideration to take the patient to the OR in the morning depending on the synovial fluid analysis. Dr. Miller, as he had not heard directly from Dr. Silva about any specific concern for infection, was not particularly inclined to recommend any antibiotics initially, though he would not object either. Additionally, his INR was subtherapeutic at 2.09, three weeks ago had 6.8 and they have been modifying his Coumadin dosing. The patient is a fairly poor historian, forgetful and shaky in the room. His is at bedside, Samantha and says that he can get anxious and does not think he is that far off his baseline. Gout was diagnosed about 1 year ago for which he recently has been starting on the febuxostat since April. He has never been on allopurinol or colchicine given concern for some medication interactions. PAST MEDICAL HISTORY: Ipu-giowxho-thvifxovs diabetes mellitus; aortic stenosis , status post mechanical valve repair in July 2015; BPH; VSD, status post repair; ASD; hypothyroidism; gout Thoracic aortic aneurysm (unknown size), hypertension, hyperlipidemia, CAD. HOME MEDICATIONS: Include: 1. Myrbetriq 25 mg p.o. daily. 2. Cetirizine 10 mg p.o. daily. 3. Febuxostat 40 mg p.o. daily. 4. Hyoscyamine 0.125 mg p.o. t.i.d. p.r.n. 5. Cinacalcet (Sensipar) 30 mg p.o. daily. 7. Calcium polycarbophil (FiberCon) 625 mg p.o. daily. 8. Flomax 0.4 mg p.o. q.p.m. 9. Ferrous sulfate 325 mg p.o. daily. 10. Aspirin 81 mg daily. 11. Tylenol 650 mg p.o. q.6 hours p.r.n. 12. Amlodipine 5 mg p.o. b.i.d. 13. Guanfacine 10 mg p.o. q.p.m. 14. Flonase 2 sprays both nares q.p.m. 15. Januvia 25 mg p.o. daily. 16. Theragran 1 tab p.o. daily. 17. levothyroxine 75 mcg alternating every other day with 50 mcg. 18. Ascorbic acid 500 mg p.o. daily. 19. Warfarin 2 mg daily per office schedule. 20. Proscar 5 mg p.o. q.p.m. 21. Percocet 1 tab p.o. q.6 hours p.r.n. 22. Chlorthalidone 12.5 mg p.o. daily. 23. Tramadol 50 mg p.o. q.6 hours p.r.n. 24. Losartan 50 mg p.o. daily. 25. Diclofenac 1 application to topical b.i.d. ALLERGIES: No known drug allergies. FAMILY MEDICAL HISTORY: Mother of breast cancer at age 51. Father at age 75 of unknown cause, he did have a history of heart attack. He has a brother reportedly healthy. His daughter who has breast cancer. SOCIAL HISTORY: He is a never smoker. Rare alcohol use. 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 He desires to be a full code. Medical surrogate is his wire, Samantha, he is at bedside. REVIEW OF SYSTEMS: Complete 14-point review of systems is negative except as per HPI. He denies any fevers, chills, headaches, rashes. He does have some ecchymosis from recent supratherapeutic INR. PHYSICAL EXAMINATION GENERAL APPEARANCE: No acute distress, but somewhat tremulous. VITAL SIGNS: Temperature 99.2, increased to 100.1; pulse rate 96; respiratory rate 16; satting 96% on room air; blood pressure 136/52. HEENT: Normocephalic, atraumatic. Pupils equal, round, and reactive to light. Extraocular motions intact. No scleral icterus. LUNGS: Clear to auscultation bilaterally with no wheezing, rales, or rhonchi. CARDIOVASCULAR: Heart sounds are distant, but with mechanical heart sounds rarely with some tachycardia. No murmurs appreciated. ABDOMEN: Soft, nontender, nondistended. EXTREMITIES: Warm and well perfused. No peripheral edema. His right first toe is slightly erythematous and the left knee is slightly warm with effusion, but not erythematous and he resists range of motion testing. NEUROLOGIC: Cranial nerve II through XII intact. DIAGNOSTIC STUDIES/LAB DATA: Labs: White count 21.4, hemoglobin 8.8, hematocrit 27, platelets 384, RDW 16. ESR greater than 120. INR 2.09. Sodium 130, potassium 4.9, chloride 92, carbon dioxide 22, BUN 50, creatinine 2.45, glucose 102, lactic acid has been 1.1, uric acid 4.2, calcium 8.0. Total bili 0.8, AST 23, ALT 16, alk phos 51, CRP 502. Total protein 17.3, albumin 3.3. Imaging: None. ASSESSMENT AND PLAN: Dylan Sultana is a 74-year-old male with multiple comorbidities including CAD; mechanical aortic valve replacement, on Coumadin with a goal 2.5 to 3.5 (though he targets a narrower 2.6 to 3.2); and gout, presenting with progressive, but now severe left knee pain, bilateral first toe pains for which he is not ambulatory and has a wheelchair at bedside. He is status post arthrocentesis with Dr. Silva this afternoon and was referred for further evaluation, which as now his labs are concerning for a possible severe inflammation versus infection. He does meet 2 SIRS criteria with leukocytosis, heart rate above 90 and just barely misses a 3rd as his temperature is just below threshold at 100.1. His inflammatory markers are through the roof at 502, CRP and ESR above detection. He cannot move his left knee and it is erythematous and Dr. Silva's note is that it was bloody/cloudy, this is all concerning for a potential infection until proven otherwise and I will be starting him on ceftriaxone empirically given that Dr. Miller did not have strong objection to this, though he did think that from what he knew he did not necessarily recommend antibiotics strongly yet. He has a mechanical valve and is at risk for potential bacteremia, so blood cultures were obtained before antibiotics are given. He is shaky and poor historian, though reportedly not off his baseline per his wie. His lactic acid is normal. He also has evidence of acute kidney injury with a creatinine of 2.45 compared to baseline, last between 1.6 and 1.8. I am going to give him a sepsis fluid bolus to 30 cc/kg. Repeat labs in the morning. Follow up the synovial fluid studies. N.p.o. at midnight. He may be an add on case for a washout tomorrow with Dr. Silva, or other orthopedic doctors on service. For his other medical issues, I am going to continue his febuxostat 40 mg p.o. daily. Of note, his uric acid was actually low at 4.2. I am holding his antihypertensive medication in the setting of sepsis and acute kidney injury. I am giving him 2 mg of warfarin now. He, though a poor historian, says he took a half tab on Monday, nothing on Monday or Monday, half tab on Monday and , 1 tab on Monday, half tab on Monday and is slightly subtherapeutic here at 2.09, repeat INRs daily, again goal is between he says 2.6 to 3.2 ideally, but likely 2.5 and 3.5. He follows with Dr. Brewster who has planned to see him on 06/18/19 for preop testing for a potential left knee replacement surgery. We will continue his other home meds including cetirizine, Sensipar, calcium polycarbophil, aspirin 81 mg daily. For hypothyroidism, continue his alternating dose of levothyroxine 50 and 75 mcg p.o. every other day. For benign prostatic hyperplasia, Myrbetriq, Flomax and finasteride. Monitor his output and consider bladder scan if not urinating freely. For his pain control , continue tramadol and Percocet p.r.n. We will hold off on prednisone as there is concern for potential infection. The care will likely be assumed by his PCP, Dr. Cristi Maria tomorrow. Again, n.p.o. midnight. Heart healthy, carbohydrate consistent diet until then. His last A1c was under excellent control at 5.7 on 01/10/19. He is a full code. Medical surrogate is his , Samantha. [id number]/[facility] #: [id number] DONN
[2019-06-11] MEDS: PRAVASTATIN 10 MG PO SCH ×2 (02:10→16:45)
[2019-06-11] MEDS: Levothyroxine TAB* 75 MCG TAB PO SCH (05:26)
[2019-06-11 06:36] LABS: ABS Lymphocytes 0.2 10^3/ul (1.0-4.8); ABS Monocytes 0.5 10^3/ul (0-0.8); ABS Neutrophils 13.4 10^3/ul (1.5-7.7); Hematocrit 25 % (42-52); Hemoglobin 8.5 g/dL (14.0-18.0); Lymphocyte % 1.4 %; Mean Corpuscular HGB Conc 34 g/dL (31-36); Mean Corpuscular Hemoglobin 31 pg (27-31); Mean Corpuscular Volume 93 fL (80-94); Mean Platelet Volume 7.4 fL (7.4-10.4); Platelet Count 334 10^3/uL (150-450); Red Blood Count 2.72 10^6 /uL (4.18-5.48); Red Cell Distribution Width 16 % (10-15); White Blood Count 14.1 10^3/uL (3.5-10.8)
[2019-06-11 06:52] LABS: BUN/Creatinine Ratio 23.5 (8-20); Calcium 7.1 mg/dL (8.6-10.3); EGFR African American 26.9 (>60); EGFR Non-African American 22.2 (>60); Potassium 4.6 mmol/L (3.5-5.0)
[2019-06-11] MEDS ORDERED: Insulin LISPRO* 1 UNITS UNIT SUBCUT SCH (07:30)
[2019-06-11] MEDS: FEBUXOSTAT 40 MG PO SCH (07:47)
[2019-06-11] MEDS: CMCS:SitaGLIPtin (NF) 25 MG TAB PO SCH (07:47)
[2019-06-11] MEDS: Cinacalcet TAB* 30 MG PO SCH (07:47)
[2019-06-11] MEDS: Calcium Polycarbophil TAB* 625 MG PO SCH (07:47)
[2019-06-11] MEDS: Hyoscyamine TAB* 0.125 MG PO PRN ×2 (07:47→15:22)
[2019-06-11] MEDS: PTO: Diclofenac 1% GEL (NF) 100 GM TUBE TOPICAL SCH ×2 (07:48→21:41)
[2019-06-11] MEDS: Multivitamins/Minerals TAB PO SCH (07:48)
[2019-06-11] MEDS: Aspirin EC TAB* 81 MG TAB.EC PO SCH (07:48)
[2019-06-11] MEDS: PTO: Mirabegron (NF) 25 MG TAB PO SCH (07:50)
--- NOTE | 2019-06-11 08:58 | PN ---
Subjective - Subjective History: I have reviewed Brook Quiñones' presentation with the patient and with the admitting history and physical provided by Dr. Willie Reynaga. He has had an acute exacerbation of gout in both halluces and had the right one injected by Dr. Turcios. He had a flare of his left knee and had this aspirated 2019. This was cultured and negative. He presented with an inability to weight bare on his left leg to the ED. Dr. Silva aspirated the joint and sent this for crystal microscopy, culture and sensitivity. He was admitted with presumptive septic arthritis with a marked leukocytosis, a shift to the left and meeting criteria for an acute inflammatory response. He denies fevers, sweats, chills or other systemic symptoms of sepsis. He has had a poor appetite for 4 days. This morning his pain is controlled at rest. Active Problems: Active Problems Acute gout (Acute) M10.9 Acute renal failure (Acute) Septic arthritis of knee, left (Acute) M00.9 Diverticulosis (Chronic) K57.90 Esophageal stricture (Chronic) K22.2 Generalized anxiety disorder (Chronic) F41.1 H/O mechanical aortic valve replacement (Chronic) Z95.2 Hyperlipidemia (Chronic) E78.5 Hypothyroidism (Chronic) E03.9 Long-term (current) use of anticoagulants, INR goal 2.5-3.5 (Chronic) Z79.01 Secondary hyperparathyroidism (Chronic) N25.81 Stage 3 chronic kidney disease (Chronic) N18.3 Thoracic aortic aneurysm (Chronic) I71.2 Type 2 diabetes mellitus without complications (Chronic) E11.9 Current Medications: Current Medications Acetaminophen (Tylenol Tab*) 650 mg PO Q6H PRN PRN Reason: PAIN-MODERATE/TEMP >/= 100.4 Ascorbic Acid (Vitamin C Tab*) 500 mg PO DAILY [facility] Last Admin: 06/11/19 07:47 Dose: 500 mg Aspirin (Aspirin Ec Tab*) 81 mg PO DAILY [facility] Last Admin: 06/11/19 07:48 Dose: 81 mg Calcium Polycarbophil (Fibercon Tab*) 625 mg PO DAILY WITH MEAL [facility] Last Admin: 06/11/19 07:47 Dose: 625 mg Cetirizine HCl (Zyrtec*) 10 mg PO DAILY [facility] Last Admin: 06/11/19 07:48 Dose: 10 mg Cinacalcet (Sensipar Tab*) 30 mg PO DAILY [facility] Last Admin: 06/11/19 07:47 Dose: 30 mg Dextrose (D50w Syringe 50 Ml*) 12.5 gm IV PUSH .FOR FS < 60 - SS PRN PRN Reason: FS < 60 Diclofenac Sodium (Voltaren 1% Gel (Nf)) 1 applic TOPICAL BID [facility]; Protocol Last Admin: 06/11/19 07:48 Dose: Not Given Febuxostat (Uloric(Nf)) 40 mg PO DAILY [facility] Last Admin: 06/11/19 07:47 Dose: 40 mg Ferrous Sulfate (Ferrous Sulfate Tab*) 325 mg PO DAILY@1000 [facility] Finasteride (Proscar Tab*) 5 mg PO QPM [facility] Last Admin: 06/11/19 00:28 Dose: 5 mg Fluticasone Propionate (Flonase Nasal [place] 50mcg*) 2 spray BOTH NARES QPM [facility] Hyoscyamine (Anaspaz Tab*) 0.125 mg PO TID PRN PRN Reason: SPASMS Last Admin: 06/11/19 07:47 Dose: 0.125 mg Insulin Human Lispro (Humalog*) 0 units SUBCUT ACHS [facility]; Protocol Levothyroxine Sodium (Synthroid Tab*) 50 mcg PO EVERY OTHER DAY@0600 [facility] Levothyroxine Sodium (Synthroid Tab*) 75 mcg PO EVERY OTHER DAY@0600 [facility] Last Admin: 06/11/19 05:26 Dose: 75 mcg Mirabegron (Myrbetriq (Nf)) 25 mg PO DAILY [facility] Last Admin: 06/11/19 07:50 Dose: Not Given Multivitamins/Minerals (Theragran/Minerals Tab*) 1 tab PO DAILY [facility] Last Admin: 06/11/19 07:48 Dose: 1 tab Oxycodone/Acetaminophen (Percocet 5/325 Tab*) 1 tab PO Q6H PRN PRN Reason: PAIN - MODERATE Last Admin: 06/11/19 00:27 Dose: 1 tab Pravastatin Sodium (Pravachol (Nf)) 10 mg PO QPM [facility] Last Admin: 06/11/19 02:10 Dose: Not Given Sitagliptin Phosphate (Januvia (Nf)) 25 mg PO DAILY [facility]; Protocol Last Admin: 06/11/19 07:47 Dose: 25 mg Tamsulosin HCl (Flomax Cap*) 0.4 mg PO QPM [facility] Last Admin: 06/11/19 00:26 Dose: 0.4 mg Tramadol HCl (Ultram*) 50 mg PO Q12H PRN PRN Reason: PAIN - MODERATE Warfarin Sodium (Coumadin Tab(*)) 2 mg PO DAILY@1700 [facility]; Protocol Last Admin: 06/11/19 00:28 Dose: 2 mg - Review of Systems Constitutional Symptoms: Yes: Weight Loss - intentional, No: Fever, Night Sweats Pulmonary: Negative: Cough, Sputum, Respiratory Distress, Shortness of Breath Cardiology: Negative: Chest Pain, Shortness of Breath, Palpitations, Swelling of Ankles Gastroenterology: Positive: Anorexia Negative: Abdominal Pain, Nausea, Vomiting, Change in Bowel Habits Genital - Urinary: Positive: Normal Negative: Dysuria, Hematuria Neurology: Negative: Headache Home Medications: Home Medications Medication Instructions Recorded Confirmed Type Finasteride TAB* [Proscar TAB*] 5 mg PO QPM 09/03/14 06/10/19 History SitaGLIPtin (NF) [Januvia (NF)] 25 mg PO DAILY 09/03/14 06/10/19 History Fluticasone NASAL SPRAY 50MCG* 2 spray BOTH NARES QPM 12/04/15 06/10/19 History [Flonase NASAL SPRAY 50MCG*] Pravastatin (NF) [Pravachol (NF)] 10 mg PO QPM 12/04/15 06/10/19 History Tamsulosin CAP* [Flomax CAP*] 0.4 mg PO QPM 12/04/15 06/10/19 History Levothyroxine TAB* [Synthroid 75 75 mcg PO EVERY OTHER DAY 02/23/17 06/10/19 History MCG TAB*] amLODIPine TAB* [Norvasc 5 mg TAB*] 5 mg PO BID 02/23/17 06/10/19 History Calcium Polycarbophil TAB* 625 mg PO DAILY 08/30/18 06/10/19 History [Fibercon TAB*] Chlorthalidone TAB* [Hygroton TAB*] 12.5 mg PO DAILY 08/30/18 06/10/19 History Hyoscyamine TAB* [Anaspaz 0.125 MG 0.125 mg PO TID PRN 08/30/18 06/10/19 History TAB*] Acetaminophen TAB* [Tylenol TAB*] 650 mg PO Q6H PRN 06/10/19 06/10/19 History Ascorbic Acid TAB* [Vitamin C 500 mg PO DAILY 06/10/19 06/10/19 History TAB*] Aspirin EC TAB* [Ecotrin EC Low 81 mg PO DAILY 06/10/19 06/10/19 History Dose 81 MG*] Cetirizine* [ZyrTEC 10 MG TAB*] 10 mg PO DAILY 06/10/19 06/10/19 History Cinacalcet TAB* [Sensipar TAB*] 30 mg PO DAILY 06/10/19 06/10/19 History Diclofenac 1% GEL (NF) [Voltaren 1 applic TOPICAL BID 06/10/19 06/10/19 History 1% GEL (NF)] Febuxostat(NF) [Uloric(NF)] 40 mg PO DAILY 06/10/19 06/10/19 History Ferrous Sulfate TAB* 325 mg PO DAILY 06/10/19 06/10/19 History Levothyroxine TAB* [Synthroid TAB*] 50 mcg PO EVERY OTHER DAY 06/10/19 06/10/19 History Losartan TAB* [Cozaar TAB*] 50 mg PO DAILY 06/10/19 06/10/19 History Mirabegron (NF) [Myrbetriq (NF)] 25 mg PO DAILY 06/10/19 06/10/19 History Multivitamins/Minerals TAB* 1 tab PO DAILY 06/10/19 06/10/19 History [Theragran/minerals TAB*] Warfarin TAB(*) [Coumadin TAB(*)] 2 mg PO DAILY 06/10/19 06/10/19 History oxyCODONE/Acetamin 5/325 MG* 1 tab PO Q6H PRN 06/10/19 06/10/19 History [Percocet 5/325 TAB*] traMADol TAB* [Ultram*] 50 mg PO Q6HR PRN 06/10/19 06/10/19 History Allergies: Allergies Allergy/AdvReac Type Severity Reaction Status Date / Time No Known Allergies Allergy Verified 06/10/19 17:03 Objective - Vital Signs Vital Signs: Vital Signs 06/10/19 06/10/19 06/10/19 17:01 19:30 21:59 Temperature 99.2 F 100.1 F Pulse Rate 96 87 90 Respiratory 16 20 Rate Blood Pressure 136/52 115/57 (mmHg) O2 Sat by Pulse 96 98 97 Oximetry 06/10/19 06/10/19 06/10/19 22:00 23:00 23:19 Temperature Pulse Rate 92 94 95 Respiratory Rate Blood Pressure 124/62 (mmHg) O2 Sat by Pulse 98 98 97 Oximetry 06/10/19 06/10/19 06/10/19 23:29 23:34 23:36 Temperature Pulse Rate 88 85 Respiratory 18 Rate Blood Pressure 115/59 (mmHg) O2 Sat by Pulse 95 97 Oximetry 06/10/19 06/11/19 06/11/19 23:37 00:01 00:27 Temperature 98 F 99.5 F Pulse Rate 88 93 Respiratory 20 18 18 Rate Blood Pressure 115/59 128/57 (mmHg) O2 Sat by Pulse 96 97 Oximetry 06/11/19 06/11/19 06/11/19 02:00 03:09 07:15 Temperature 98.8 F 98.3 F Pulse Rate 80 80 Respiratory 18 16 17 Rate Blood Pressure 112/46 108/53 (mmHg) O2 Sat by Pulse 97 98 Oximetry 06/11/19 06/11/19 07:47 07:54 Temperature Pulse Rate Respiratory 16 16 Rate Blood Pressure (mmHg) O2 Sat by Pulse Oximetry - Intake and Output Intake and Output: Intake & Output 06/08/19 06/09/19 06/10/19 06/11/19 11:59 11:59 11:59 11:59 Intake Total 1575 Output Total 300 Balance 1275 Weight 116 lb 9.6 oz Intake: IV Fluids 1575 Normal saline 1575 Oral 0 Output: Urine 300 Other: # Bowel Movements 0 ADLs: Meal Record Start: 06/10/19 23: 34 Freq: DAILY@0900,1400,1800 Status: Active Protocol: Created 06/10/19 23:34 System (Rec: 06/10/19 23:34 System [id number]) Intake and Output Start: 06/10/19 17: 03 Freq: Status: Active Protocol: Created 06/10/19 17:03 System (Rec: 06/10/19 17:03 System ED-M01) Document 06/11/19 07:31 [id number] (Rec: 06/11/19 07:31 [id number] [id number]) Intake and Output Start: 06/10/19 23: 34 Freq: DAILY@0600,1400,2200 Status: Active Protocol: Created 06/10/19 23:34 System (Rec: 06/10/19 23:34 System MED-C05) Document 06/11/19 05:29 [id number] (Rec: 06/11/19 05:30 [id number] [id number]) - Physical Exam General Physical Exam Comment: He is warm and well perfused, hemodynamically stable. He has no stigmata of infective endocarditis. His left knee is slightly swollen, it is not red and it is not particularly warm. His right hallux is erythmatous and midly swollen. The left hallux looks normal General: No Cyanosis, No Anemia, No Jaundice, No Clubbing Lungs and Chest: Yes: Chest Expansion Full, Chest Expansion Symetrica, Percussion Note Resonant, Vessicular Breath Sounds. No: Crackles, Wheezes, Respiratory Distress, Use of Accessory Muscles Heart Rate and Rhythm: Tachycardia Additional Cardiovascular: No: Normal Heart Sounds - Prosthetic heart sounds, Heart Murmur, Pedal Edema Abdominal Exam: Yes: Soft, Bowel Sounds Present. No: Distention, Abdominal Tenderness - Extremities Cranial Nerves II-XII Intact: Yes Limbs: Normal Power - left leg not tested, Normal Tone - Neuro Orientation: A/O x3 Psychiatric: Anxious Speech: Normal Results - Results Lab Results: Laboratory Results - last 24 hr 06/10/19 06/10/19 06/10/19 17:51 17:51 17:51 WBC 21.4 H RBC 2.87 L Hgb 8.8 L Hct 27 L MCV 94 MCH 31 MCHC 33 RDW 16 H Plt Count 384 MPV 7.2 L Neut % (Auto) 88.5 Lymph % (Auto) 1.3 Foard % (Auto) 10.0 Eos % (Auto) 0.0 Baso % (Auto) 0.2 Absolute Neuts (auto) 18.9 H Absolute Lymphs (auto) 0.3 L Absolute Monos (auto) 2.1 H Absolute Eos (auto) 0.0 Absolute Basos (auto) 0.0 Absolute Nucleated RBC 0.0 Nucleated RBC % 0.0 ESR > 120 H INR (Anticoag Therapy) 2.09 H Sodium 130 L Potassium 4.9 Chloride 92 L Carbon Dioxide 22 Anion Gap 16 H BUN 50 H Creatinine 2.45 H Est GFR ( Amer) 31.5 Est GFR (Non-Af Amer) 26.0 BUN/Creatinine Ratio 20.4 H Glucose 102 H POC Glucose (mg/dL) Lactic Acid Uric Acid 4.2 L Calcium 8.0 L Total Bilirubin 0.80 AST 23 ALT 16 Alkaline Phosphatase 51 C-Reactive Protein 502.20 H Total Protein 7.3 Albumin 3.3 Globulin 4.0 Albumin/Globulin Ratio 0.8 L 06/10/19 06/11/19 06/11/19 22:06 06:17 06:17 WBC 14.1 H RBC 2.72 L Hgb 8.5 L Hct 25 L MCV 93 MCH 31 MCHC 34 RDW 16 H Plt Count 334 MPV 7.4 Neut % (Auto) 95.0 Lymph % (Auto) 1.4 Foard % (Auto) 3.5 Eos % (Auto) 0.0 Baso % (Auto) 0.1 Absolute Neuts (auto) 13.4 H Absolute Lymphs (auto) 0.2 L Absolute Monos (auto) 0.5 Absolute Eos (auto) 0.0 Absolute Basos (auto) 0.0 Absolute Nucleated RBC 0.0 Nucleated RBC % 0.0 ESR INR (Anticoag Therapy) Sodium 132 L Potassium 4.6 Chloride 98 L Carbon Dioxide 19 L Anion Gap 15 H BUN 66 H Creatinine 2.81 H Est GFR ( Amer) 26.9 Est GFR (Non-Af Amer) 22.2 BUN/Creatinine Ratio 23.5 H Glucose 199 H POC Glucose (mg/dL) Lactic Acid 1.1 Uric Acid Calcium 7.1 L Total Bilirubin AST ALT Alkaline Phosphatase C-Reactive Protein Total Protein Albumin Globulin Albumin/Globulin Ratio 06/11/19 08:26 WBC RBC Hgb Hct MCV MCH MCHC RDW Plt Count MPV Neut % (Auto) Lymph % (Auto) Foard % (Auto) Eos % (Auto) Baso % (Auto) Absolute Neuts (auto) Absolute Lymphs (auto) Absolute Monos (auto) Absolute Eos (auto) Absolute Basos (auto) Absolute Nucleated RBC Nucleated RBC % ESR INR (Anticoag Therapy) Sodium Potassium Chloride Carbon Dioxide Anion Gap BUN Creatinine Est GFR ( Amer) Est GFR (Non-Af Amer) BUN/Creatinine Ratio Glucose POC Glucose (mg/dL) 228 H Lactic Acid Uric Acid Calcium Total Bilirubin AST ALT Alkaline Phosphatase C-Reactive Protein Total Protein Albumin Globulin Albumin/Globulin Ratio Other Results/Reports: RUN DATE: 06/11/19 [facility] LAB LIVE PAGE 1 RUN TIME: [address] [place] [id number] Specimen Inquiry Name: BROOK QUIÑONES JR : [address]: Jesus Silva MD Acct: [id number] Unit: [id number] AGE: 74 Location: [facility] Re06/10/19 SEX: M Status: REG REF SPEC: [id number] JESSICA: 06/10/19-[address]:Jesus Silva MD REQ: [id number] RECD: 06/10/19 _ STATUS: RES SOURCE: JOINT FLUI SPDESC:KNEE LEFT ORDERED: BF Cult/GS COMMENTS: [id number] QUERIES: Provider Requisition # [id number] Procedure Result Reported Site Body Fluid Gram Stain Final 06/11/19- 0851 ML 4+ Neutrophils No Organisms Seen Preparation By Direct Smear Body Fluid Culture PENDING RUN DATE: 06/11/19 [facility] LAB LIVE PAGE 1 RUN TIME: [address] [place] [id number] Specimen Inquiry Name: BROOK QUIÑONES JR : [address]: Jesus Silva MD Acct: [id number] Unit: [id number] AGE: 74 Location: [facility] Re06/06/18 SEX: M Status: REG REF SPEC: [id number] JESSICA: 06/06/181137 SUBM DR:Jesus Silva MD REQ: [id number] RECD: 06/06/18 _ STATUS: COMP SOURCE: MISC FLUID SPDESC:KNEE LEFT ORDERED: BF Cult/GS, MRSA/SA SSTI COMMENTS: [id number] Procedure Result Reported Site Body Fluid Gram Stain Final 06/06/18- 1623 ML 4+ Neutrophils No Organisms Seen Preparation By Cytospin Smear Body Fluid Culture Final 06/10/18- 0816 ML No Growth Day 4 MRSA/S. aureus SSTI PCR Final 06/06/18- 1810 ML Organism 1 MRSA NEGATIVE Organism 2 S.AUREUS NEGATIVE * ML - Main Lab . END OF REPORT DEPARTMENT OF PATHOLOGY, [address] [address] Yossi Barroso M.D. Director [facility] # [id number] Assessment - Problem List Assessment: Patient Problems Acute gout (Acute) Acute renal failure (Acute) Septic arthritis of knee, left (Acute) Diverticulosis (Chronic) Esophageal stricture (Chronic) Generalized anxiety disorder (Chronic) H/O mechanical aortic valve replacement (Chronic) Hyperlipidemia (Chronic) Hypothyroidism (Chronic) Long-term (current) use of anticoagulants, INR goal 2.5-3.5 (Chronic) Secondary hyperparathyroidism (Chronic) Stage 3 chronic kidney disease (Chronic) Thoracic aortic aneurysm (Chronic) Type 2 diabetes mellitus without complications (Chronic) Abnormal EKG (Chronic) Hypertension (Chronic) Plan: Septic arthritis of knee, left (Acute)/Acute gout (Acute) He has had what he considers a flare of gout in both great toes and the right hallux was injected as an outpatient. He also has a flare of pain and swelling in his left knee - for this he had an aspiration 06/06/2019 and this was culture negative. This was re-aspirated yesterday. He has a marked acute inflammatory response - with a high sed rate and CRP. Interestingly, he has few systemic symptoms, despite meeting criteria for SIRS. Differential diagnoses: * septic arthritis of left knee * Gout of left knee - his uric acid is not elevated at 4.2 * Septic arthritis of left knee and simultaneous gout or pseudo gout * Gout of both halluces He is likely to have his left knee irrigated and debrided today. We await culture of yesterday's aspiration. We are treating him with antibacterials especially in view of his mechanical aortic valve. Acute renal failure (Acute)Stage 3 chronic kidney disease (Chronic) This is part of his acute presentation and is likely pre-renal. We will replace his fluid Comorbidities: Type 2 diabetes mellitus without complications (Chronic) He is more hyperglycemic than usual Hypertension (Chronic) This is not elevated Secondary diagnoses: Diverticulosis (Chronic) Esophageal stricture (Chronic) Generalized anxiety disorder (Chronic) H/O mechanical aortic valve replacement (Chronic) Hyperlipidemia (Chronic) Hypothyroidism (Chronic) Long-term (current) use of anticoagulants, INR goal 2.5-3.5 (Chronic) Secondary hyperparathyroidism (Chronic) Thoracic aortic aneurysm (Chronic) Abnormal EKG (Chronic) I discussed the above with Scott Quiñones and he agrees with the management plan. I called his Samantha Quiñones.
[2019-06-11] MEDS ORDERED: Dextrose 50% Syringe 50 ML* 25 GM/50 ML SYRINGE IV PUSH PRN (09:21)
[2019-06-11] MEDS: Insulin GLARGINE(*) 1 UNITS UNIT SUBCUT SCH (09:35)
[2019-06-11] MEDS: Ferrous Sulfate TAB* 325 MG PO SCH (09:36)
[2019-06-11] MEDS: Insulin LISPRO* 1 UNITS UNIT SUBCUT SCH ×5 (09:36→21:50)
[2019-06-11] MEDS: NS 0.9% w/ 20 Meq KCL 1000 ML* 1,000 ML IV SCH ×2 (09:38→21:54)
--- NOTE | 2019-06-11 14:33 | PN ---
Progress Note - Progress Note Date of Service: 06/11/19 Note: S: Patient was seen at bedside alongside Dr Silva. He has gout of the right MTP as well as the left knee. Reports severe pain of both of these areas with inability to ambulate. He had an aspiration of the left knee yesterday with no growth to date on culture, though shows gout crystals. O: Gen: nontoxic appearing, NAD RLE: erythema and exquisitely tender R MTP joint. LLE: markedly inflamed left knee with almost no ROM, no erythema. Struggles to straight leg raise due to pain in the left knee. A: Gout of R MTP and L knee P: WBAT with a rolling walker. Work with PT Will start ceftriaxone as a precaution, though low suspicion for a septic joint. Will additionally start 20 mg prednisone daily to help reduce inflammation, low dose due to comorbidity of diabetes. If infection is identified this should be discontinued, but at this time it seems this is acute inflammatory reaction, rather than in infectious process. Unable to give NSAIDS due to renal function. Continue to follow cultures ( see yesterdays ( 06/10) account) Dr Silva will book an arthroascopic I&D left knee 06/12/19 in the afternoon NPO after 0400 06/12/19 Vital Signs Temp 97.9 F 06/11/19 11:15 Pulse 75 06/11/19 11:15 Resp 16 06/11/19 11:15 BP 119/55 06/11/19 11:15 Pulse Ox 96 06/11/19 11:15 Intake & Output 06/10/19 06/11/19 06/11/19 18:59 06:59 18:59 Intake Total 1575 0 Output Total 100 1120 Balance 1475 -1120 Weight 118 lb 116 lb 9.6 oz Intake: IV Fluids 1575 Normal saline 1575 Oral 0 0 Output: Urine 100 1120 Other: # Bowel Movements 0 Laboratory Last Values WBC 14.1 10^3/uL (3.5-10.8) H 06/11/19 06:17 RBC 2.72 10^6 /uL (4.18-5.48) L 06/11/19 06:17 Hgb 8.5 g/dL (14.0-18.0) L 06/11/19 06:17 Hct 25 % (42-52) L 06/11/19 06:17 MCV 93 fL (80-94) 06/11/19 06:17 MCH 31 pg (27-31) 06/11/19 06:17 MCHC 34 g/dL (31-36) 06/11/19 06:17 RDW 16 % (10-15) H 06/11/19 06:17 Plt Count 334 10^3/uL (150-450) 06/11/19 06:17 MPV 7.4 fL (7.4-10.4) 06/11/19 06:17 Neut % (Auto) 95.0 % 06/11/19 06:17 Lymph % (Auto) 1.4 % 06/11/19 06:17 Hitchcock % (Auto) 3.5 % 06/11/19 06:17 Eos % (Auto) 0.0 % 06/11/19 06:17 Baso % (Auto) 0.1 % 06/11/19 06:17 Absolute Neuts (auto) 13.4 10^3/ul (1.5-7.7) H 06/11/19 06:17 Absolute Lymphs (auto) 0.2 10^3/ul (1.0-4.8) L 06/11/19 06:17 Absolute Monos (auto) 0.5 10^3/ul (0-0.8) 06/11/19 06:17 Absolute Eos (auto) 0.0 10^3/ul (0-0.6) 06/11/19 06:17 Absolute Basos (auto) 0.0 10^3/ul (0-0.2) 06/11/19 06:17 Absolute Nucleated RBC 0.0 10^3/ul 06/11/19 06:17 Nucleated RBC % 0.0 06/11/19 06:17 ESR > 120 mm/Hr (0-19) H 06/10/19 17:51 INR (Anticoag Therapy) 2.09 (0.82-1.09) H 06/10/19 17:51 Sodium 132 mmol/L (135-145) L 06/11/19 06:17 Potassium 4.6 mmol/L (3.5-5.0) 06/11/19 06:17 Chloride 98 mmol/L (101-111) L 06/11/19 06:17 Carbon Dioxide 19 mmol/L (22-32) L 06/11/19 06:17 Anion Gap 15 mmol/L (2-11) H 06/11/19 06:17 BUN 66 mg/dL (6-24) H 06/11/19 06:17 Creatinine 2.81 mg/dL (0.67-1.17) H 06/11/19 06:17 Est GFR ( Amer) 26.9 (>60) 06/11/19 06:17 Est GFR (Non-Af Amer) 22.2 (>60) 06/11/19 06:17 BUN/Creatinine Ratio 23.5 (8-20) H 06/11/19 06:17 Glucose 199 mg/dL (70-100) H 06/11/19 06:17 POC Glucose (mg/dL) 103 mg/dL (70-100) H 06/11/19 13:50 Lactic Acid 1.1 mmol/L (0.5-2.0) 06/10/19 22:06 Uric Acid 4.2 mg/dL (4.4-7.6) L 06/10/19 17:51 Calcium 7.1 mg/dL (8.6-10.3) L 06/11/19 06:17 Total Bilirubin 0.80 mg/dL (0.2-1.0) 06/10/19 17:51 AST 23 U/L (13-39) 06/10/19 17:51 ALT 16 U/L (7-52) 06/10/19 17:51 Alkaline Phosphatase 51 U/L (34-104) 06/10/19 17:51 C-Reactive Protein 502.20 mg/L (<8.01) H 06/10/19 17:51 Total Protein 7.3 g/dL (6.4-8.9) 06/10/19 17:51 Albumin 3.3 g/dL (3.2-5.2) 06/10/19 17:51 Globulin 4.0 g/dL (2-4) 06/10/19 17:51 Albumin/Globulin Ratio 0.8 (1-3) L 06/10/19 17:51
[2019-06-11] MEDS: cefTRIAXone(*) 2 GM in NS 0.9% 100 ML* 100 ML IVPB SCH (15:25)
[2019-06-11] MEDS: Fluticasone NASAL SPRAY 50MCG* 16 gm SPRAY BTL BOTH NARES SCH (16:45)
[2019-06-12] MEDS: Insulin LISPRO* 1 UNITS UNIT SUBCUT SCH ×6 (03:56→21:47)
[2019-06-12] MEDS ORDERED: Ondansetron INJ* 2 MG/ML VIAL ONE (05:36)
[2019-06-12] MEDS: Levothyroxine TAB* 50 MCG TAB PO SCH (05:49)
[2019-06-12] MEDS ORDERED: Ondansetron INJ* 2 MG/ML VIAL IV PRN ×2 (05:58→16:31)
[2019-06-12 06:08] LABS: ABS Lymphocytes 0.2 10^3/ul (1.0-4.8); ABS Monocytes 0.6 10^3/ul (0-0.8); ABS Neutrophils 13.1 10^3/ul (1.5-7.7); Hematocrit 24 % (42-52); Hemoglobin 7.9 g/dL (14.0-18.0); Lymphocyte % 1.2 %; Mean Corpuscular HGB Conc 33 g/dL (31-36); Mean Corpuscular Hemoglobin 31 pg (27-31); Mean Corpuscular Volume 94 fL (80-94); Mean Platelet Volume 7.5 fL (7.4-10.4); Platelet Count 363 10^3/uL (150-450); Red Blood Count 2.55 10^6 /uL (4.18-5.48); Red Cell Distribution Width 17 % (10-15); White Blood Count 13.9 10^3/uL (3.5-10.8)
[2019-06-12 06:11] LABS: INR 2.63 (0.82-1.09)
[2019-06-12 06:20] LABS: C Reactive Protein 312.74 mg/L (<8.01); Calcium 6.9 mg/dL (8.6-10.3); EGFR African American 33.6 (>60); EGFR Non-African American 27.7 (>60); Potassium 4.5 mmol/L (3.5-5.0)
[2019-06-12] MEDS: NS 0.9% w/ 20 Meq KCL 1000 ML* 1,000 ML IV SCH ×2 (07:38→23:09)
[2019-06-12] MEDS: CMCS:SitaGLIPtin (NF) 25 MG TAB PO SCH (07:40)
[2019-06-12] MEDS: Cetirizine* 10 MG TAB PO SCH (07:40)
[2019-06-12] MEDS: MIRABEGRON 50 MG PO SCH (07:40)
[2019-06-12] MEDS: FEBUXOSTAT 40 MG PO SCH (07:40)
[2019-06-12] MEDS: Multivitamins/Minerals TAB PO SCH (07:40)
[2019-06-12] MEDS: Ascorbic Acid TAB* 500 MG PO SCH (07:40)
[2019-06-12] MEDS: Aspirin EC TAB* 81 MG TAB.EC PO SCH (07:40)
[2019-06-12] MEDS: Cinacalcet TAB* 30 MG PO SCH (07:40)
[2019-06-12] MEDS: Calcium Polycarbophil TAB* 625 MG PO SCH (07:40)
[2019-06-12] MEDS: PTO: Mirabegron (NF) 25 MG TAB PO SCH (07:41)
[2019-06-12] MEDS: PTO: Diclofenac 1% GEL (NF) 100 GM TUBE TOPICAL SCH ×2 (07:42→20:36)
--- NOTE | 2019-06-12 07:55 | CONSULT ---
Consult Consult: Mr. Sultana is a 74 year old man with an acute presentation of an oligoarticular inflammatory arthropathy affecting his left knee and MTP joint. A workup revealed very high inflammatory markers I agree that this is likely a presentation of oligoarticular gout. Agree with trial of Prednisone at 20 mg daily which has already been started. Alternatively consider low dose Colchicine .3 mg once every 3 days (given his renal insufficiency). Per discussion with Dr. Silva, he will have a wash out of his knee today. Follow up on cultures and polaroscopic evalation for crystals. Would re check his uric acid in a week as well to see if this level rises. Future knee replacement surgery should be done when knee is more stable with no active inflammatory process. Will follow; thanks!
[2019-06-12] MEDS ORDERED: Famotidine TAB* 20 MG PO ONE (08:00)
--- NOTE | 2019-06-12 08:22 | PN ---
Subjective - Subjective Reason for Note: Progress Note History: He continues to have pain in his left knee and great toes. He has had no fevers , chills or sweats. He has nausea which is unusual for him. He denies any cardiovascular, respiratory symptoms. He has no other new joint pain. Active Problems: Active Problems Acute gout (Acute) M10.9 Acute renal failure (Acute) Anemia (Acute) D64.9 Septic arthritis of knee, left (Acute) M00.9 Diverticulosis (Chronic) K57.90 Esophageal stricture (Chronic) K22.2 Generalized anxiety disorder (Chronic) F41.1 H/O mechanical aortic valve replacement (Chronic) Z95.2 Hyperlipidemia (Chronic) E78.5 Hypothyroidism (Chronic) E03.9 Long-term (current) use of anticoagulants, INR goal 2.5-3.5 (Chronic) Z79.01 Secondary hyperparathyroidism (Chronic) N25.81 Stage 3 chronic kidney disease (Chronic) N18.3 Thoracic aortic aneurysm (Chronic) I71.2 Type 2 diabetes mellitus without complications (Chronic) E11.9 Current Medications: Current Medications Acetaminophen (Tylenol Tab*) 650 mg PO Q6H PRN PRN Reason: PAIN-MODERATE/TEMP >/= 100.4 Ascorbic Acid (Vitamin C Tab*) 500 mg PO DAILY [facility] Last Admin: 06/12/19 07:40 Dose: 500 mg Aspirin (Aspirin Ec Tab*) 81 mg PO DAILY [facility] Last Admin: 06/12/19 07:40 Dose: 81 mg Calcium Polycarbophil (Fibercon Tab*) 625 mg PO DAILY WITH MEAL [facility] Last Admin: 06/12/19 07:40 Dose: 625 mg Cetirizine HCl (Zyrtec*) 10 mg PO DAILY [facility] Last Admin: 06/12/19 07:40 Dose: 10 mg Cinacalcet (Sensipar Tab*) 30 mg PO DAILY [facility] Last Admin: 06/12/19 07:40 Dose: 30 mg Dextrose (D50w Syringe 50 Ml*) 12.5 gm IV PUSH .FOR FS < 60 - SS PRN PRN Reason: FS < 60 Diclofenac Sodium (Voltaren 1% Gel (Nf)) 1 applic TOPICAL BID [facility]; Protocol Last Admin: 06/12/19 07:42 Dose: 1 applic Febuxostat (Uloric(Nf)) 40 mg PO DAILY [facility] Last Admin: 06/12/19 07:40 Dose: 40 mg Ferrous Sulfate (Ferrous Sulfate Tab*) 325 mg PO DAILY@1000 [facility] Last Admin: 06/11/19 09:36 Dose: 325 mg Finasteride (Proscar Tab*) 5 mg PO QPM [facility] Last Admin: 06/11/19 16:45 Dose: 5 mg Fluticasone Propionate (Flonase Nasal [place] 50mcg*) 2 spray BOTH NARES QPM [facility] Last Admin: 06/11/19 16:45 Dose: Not Given Hyoscyamine (Anaspaz Tab*) 0.125 mg PO TID PRN PRN Reason: SPASMS Last Admin: 06/11/19 15:22 Dose: 0.125 mg Potassium Chloride/Sodium Chloride (Ns 0.9% W/ 20 Meq Kcl 1000 Ml*) 1,000 mls @ 100 mls/hr IV PER RATE [facility] Last Admin: 06/12/19 07:38 Dose: 100 mls/hr Ceftriaxone Sodium 2 gm/ (Sodium Chloride) 100 mls @ 200 mls/hr IVPB Q24H [facility] Last Admin: 06/11/19 15:25 Dose: 200 mls/hr Insulin Glargine (Lantus(*)) 6 units SUBCUT Q24H [facility] Last Admin: 06/11/19 09:35 Dose: 6 units Insulin Human Lispro (Humalog*) 0 units SUBCUT Q4HR [facility]; Protocol Last Admin: 06/12/19 06:01 Dose: 2 unit Levothyroxine Sodium (Synthroid Tab*) 50 mcg PO EVERY OTHER DAY@0600 [facility] Last Admin: 06/12/19 05:49 Dose: 50 mcg Levothyroxine Sodium (Synthroid Tab*) 75 mcg PO EVERY OTHER DAY@0600 [facility] Last Admin: 06/11/19 05:26 Dose: 75 mcg Mirabegron (Myrbetriq (Nf)) 25 mg PO DAILY [facility] Last Admin: 06/12/19 07:41 Dose: Not Given Multivitamins/Minerals (Theragran/Minerals Tab*) 1 tab PO DAILY [facility] Last Admin: 06/12/19 07:40 Dose: 1 tab Pto: Mirabegron 50mg (Er Tablet) 1 dose PO DAILY [facility] Last Admin: 06/12/19 07:40 Dose: 1 dose Ondansetron HCl (Zofran Inj*) 4 mg IV Q4H PRN PRN Reason: NAUSEA/VOMITING Oxycodone/Acetaminophen (Percocet 5/325 Tab*) 1 tab PO Q6H PRN PRN Reason: PAIN - MODERATE Last Admin: 06/11/19 21:43 Dose: 1 tab Pravastatin Sodium (Pravachol (Nf)) 10 mg PO QPM [facility] Last Admin: 06/11/19 16:45 Dose: 10 mg Prednisone (Deltasone 20 Mg Tab) 20 mg PO DAILY [facility] Last Admin: 06/12/19 07:40 Dose: 20 mg Sitagliptin Phosphate (Januvia (Nf)) 25 mg PO DAILY [facility]; Protocol Last Admin: 06/12/19 07:40 Dose: 25 mg Tamsulosin HCl (Flomax Cap*) 0.4 mg PO QPM [facility] Last Admin: 06/11/19 16:45 Dose: 0.4 mg Tramadol HCl (Ultram*) 50 mg PO Q12H PRN PRN Reason: PAIN - MODERATE Warfarin Sodium (Coumadin Tab(*)) 2 mg PO DAILY@1700 [facility]; Protocol Last Admin: 06/11/19 16:45 Dose: 2 mg Home Medications: Home Medications Medication Instructions Recorded Confirmed Type Finasteride TAB* [Proscar TAB*] 5 mg PO QPM 09/03/14 06/10/19 History SitaGLIPtin (NF) [Januvia (NF)] 25 mg PO DAILY 09/03/14 06/10/19 History Fluticasone NASAL SPRAY 50MCG* 2 spray BOTH NARES QPM 12/04/15 06/10/19 History [Flonase NASAL SPRAY 50MCG*] Pravastatin (NF) [Pravachol (NF)] 10 mg PO QPM 12/04/15 06/10/19 History Tamsulosin CAP* [Flomax CAP*] 0.4 mg PO QPM 12/04/15 06/10/19 History Levothyroxine TAB* [Synthroid 75 75 mcg PO EVERY OTHER DAY 02/23/17 06/10/19 History MCG TAB*] amLODIPine TAB* [Norvasc 5 mg TAB*] 5 mg PO BID 02/23/17 06/10/19 History Calcium Polycarbophil TAB* 625 mg PO DAILY 08/30/18 06/10/19 History [Fibercon TAB*] Chlorthalidone TAB* [Hygroton TAB*] 12.5 mg PO DAILY 08/30/18 06/10/19 History Hyoscyamine TAB* [Anaspaz 0.125 MG 0.125 mg PO TID PRN 08/30/18 06/10/19 History TAB*] Acetaminophen TAB* [Tylenol TAB*] 650 mg PO Q6H PRN 06/10/19 06/10/19 History Ascorbic Acid TAB* [Vitamin C 500 mg PO DAILY 06/10/19 06/10/19 History TAB*] Aspirin EC TAB* [Ecotrin EC Low 81 mg PO DAILY 06/10/19 06/10/19 History Dose 81 MG*] Cetirizine* [ZyrTEC 10 MG TAB*] 10 mg PO DAILY 06/10/19 06/10/19 History Cinacalcet TAB* [Sensipar TAB*] 30 mg PO DAILY 06/10/19 06/10/19 History Diclofenac 1% GEL (NF) [Voltaren 1 applic TOPICAL BID 06/10/19 06/10/19 History 1% GEL (NF)] Febuxostat(NF) [Uloric(NF)] 40 mg PO DAILY 06/10/19 06/10/19 History Ferrous Sulfate TAB* 325 mg PO DAILY 06/10/19 06/10/19 History Levothyroxine TAB* [Synthroid TAB*] 50 mcg PO EVERY OTHER DAY 06/10/19 06/10/19 History Losartan TAB* [Cozaar TAB*] 50 mg PO DAILY 06/10/19 06/10/19 History Multivitamins/Minerals TAB* 1 tab PO DAILY 06/10/19 06/10/19 History [Theragran/minerals TAB*] Warfarin TAB(*) [Coumadin TAB(*)] 2 mg PO DAILY 06/10/19 06/10/19 History oxyCODONE/Acetamin 5/325 MG* 1 tab PO Q6H PRN 06/10/19 06/10/19 History [Percocet 5/325 TAB*] traMADol TAB* [Ultram*] 50 mg PO Q6HR PRN 06/10/19 06/10/19 History Mirabegron (NF) [Myrbetriq (NF)] 50 mg PO DAILY 06/11/19 06/11/19 History Allergies: Allergies Allergy/AdvReac Type Severity Reaction Status Date / Time No Known Allergies Allergy Verified 06/10/19 17:03 Objective - Vital Signs Vital Signs: Vital Signs 06/11/19 06/11/19 06/11/19 10:00 11:15 15:15 Temperature 97.9 F 97.8 F Pulse Rate 75 80 Respiratory 16 16 16 Rate Blood Pressure 119/55 119/56 (mmHg) O2 Sat by Pulse 96 96 Oximetry 06/11/19 06/11/19 06/11/19 15:22 16:42 19:17 Temperature 98.4 F Pulse Rate 95 Respiratory 16 16 17 Rate Blood Pressure 114/54 (mmHg) O2 Sat by Pulse 97 Oximetry 06/11/19 06/11/19 06/11/19 20:00 21:43 23:01 Temperature 98.3 F Pulse Rate 80 Respiratory 18 18 16 Rate Blood Pressure 103/51 (mmHg) O2 Sat by Pulse 95 Oximetry 06/12/19 06/12/19 06/12/19 00:00 03:10 07:15 Temperature 98.7 F 98.7 F Pulse Rate 85 76 Respiratory 16 16 18 Rate Blood Pressure 144/55 107/55 (mmHg) O2 Sat by Pulse 95 96 Oximetry 06/12/19 07:50 Temperature Pulse Rate Respiratory 18 Rate Blood Pressure (mmHg) O2 Sat by Pulse Oximetry - Intake and Output Intake and Output: Intake & Output 06/09/19 06/10/19 06/11/19 06/12/19 11:59 11:59 11:59 11:59 Intake Total 1575 2082 Output Total 920 700 Balance 655 1382 Weight 116 lb 9.6 oz Intake: IV Fluids 1575 1022 NS (0.9%) 20 meq KCL 1022 Normal saline 1575 Oral 0 1060 Output: Urine 920 700 Other: # Bowel Movements 0 1 Estimated Stool Amount Small ADLs: Meal Record Start: 06/10/19 23: 34 Freq: DAILY@0900,1400,1800 Status: Active Protocol: Created 06/10/19 23:34 System (Rec: 06/10/19 23:34 System MED-C05) Document 06/11/19 09:00 [id number] (Rec: 06/11/19 09:14 [id number] MED-M11) Document 06/11/19 12:52 [id number] (Rec: 06/11/19 12:52 [id number] MED-M11) Document 06/11/19 18:00 [id number] (Rec: 06/11/19 18:10 [id number] MED-C04) Intake and Output Start: 06/10/19 17: 03 Freq: Status: Active Protocol: Created 06/10/19 17:03 System (Rec: 06/10/19 17:03 System ED-M01) Document 06/11/19 07:31 [id number] (Rec: 06/11/19 07:31 [id number] MED-M11) Intake and Output Start: 06/10/19 23: 34 Freq: DAILY@0600,1400,2200 Status: Active Protocol: Created 06/10/19 23:34 System (Rec: 06/10/19 23:34 System MED-C05) Document 06/11/19 05:29 [id number] (Rec: 06/11/19 05:30 [id number] MED-C09) Document 06/11/19 12:08 [id number] (Rec: 06/11/19 12:08 [id number] MED-C16) Document 06/11/19 12:53 [id number] (Rec: 06/11/19 12:53 [id number] MED-M11) Document 06/11/19 22:00 [id number] (Rec: 06/11/19 23:32 [id number] MED-C09) Document 06/12/19 06:00 [id number] (Rec: 06/12/19 06:21 [id number] MED-C13) - Physical Exam General Physical Exam Comment: left knee effusion and warmer than the right. Erythema and swelling around right great toe. General: No Cyanosis, Yes Anemia, No Jaundice, No Clubbing Lungs and Chest: Yes: Chest Expansion Full, Chest Expansion Symetrica, Percussion Note Resonant, Vessicular Breath Sounds. No: Crackles, Wheezes, Respiratory Distress, Use of Accessory Muscles Heart Rate and Rhythm: Regular Additional Cardiovascular: No: Normal Heart Sounds - prosthetic sounds, Heart Murmur, Pedal Edema Abdominal Exam: Yes: Soft, Bowel Sounds Present. No: Distention, Abdominal Tenderness Results - Results Lab Results: Laboratory Results - last 24 hr 06/11/19 06/11/19 06/11/19 08:26 09:58 13:50 WBC RBC Hgb Hct MCV MCH MCHC RDW Plt Count MPV Neut % (Auto) Lymph % (Auto) [place] % (Auto) Eos % (Auto) Baso % (Auto) Absolute Neuts (auto) Absolute Lymphs (auto) Absolute Monos (auto) Absolute Eos (auto) Absolute Basos (auto) Absolute Nucleated RBC Nucleated RBC % INR (Anticoag Therapy) Sodium Potassium Chloride Carbon Dioxide Anion Gap BUN Creatinine Est GFR ( Amer) Est GFR (Non-Af Amer) BUN/Creatinine Ratio Glucose POC Glucose (mg/dL) 228 H 226 H 103 H Calcium C-Reactive Protein 06/11/19 06/11/19 06/12/19 17:32 21:41 03:09 WBC RBC Hgb Hct MCV MCH MCHC RDW Plt Count MPV Neut % (Auto) Lymph % (Auto) [place] % (Auto) Eos % (Auto) Baso % (Auto) Absolute Neuts (auto) Absolute Lymphs (auto) Absolute Monos (auto) Absolute Eos (auto) Absolute Basos (auto) Absolute Nucleated RBC Nucleated RBC % INR (Anticoag Therapy) Sodium Potassium Chloride Carbon Dioxide Anion Gap BUN Creatinine Est GFR ( Amer) Est GFR (Non-Af Amer) BUN/Creatinine Ratio Glucose POC Glucose (mg/dL) 118 H 184 H 137 H Calcium C-Reactive Protein 06/12/19 06/12/19 06/12/19 05:39 05:39 05:39 WBC 13.9 H RBC 2.55 L Hgb 7.9 L Hct 24 L MCV 94 MCH 31 MCHC 33 RDW 17 H Plt Count 363 MPV 7.5 Neut % (Auto) 94.1 Lymph % (Auto) 1.2 [place] % (Auto) 4.6 Eos % (Auto) 0.0 Baso % (Auto) 0.1 Absolute Neuts (auto) 13.1 H Absolute Lymphs (auto) 0.2 L Absolute Monos (auto) 0.6 Absolute Eos (auto) 0.0 Absolute Basos (auto) 0.0 Absolute Nucleated RBC 0.0 Nucleated RBC % 0.0 INR (Anticoag Therapy) 2.63 H Sodium 139 Potassium 4.5 Chloride 106 Carbon Dioxide 18 L Anion Gap 15 H BUN 72 H Creatinine 2.32 H Est GFR ( Amer) 33.6 Est GFR (Non-Af Amer) 27.7 BUN/Creatinine Ratio 31.0 H Glucose 171 H POC Glucose (mg/dL) Calcium 6.9 L C-Reactive Protein 312.74 H 06/12/19 05:56 WBC RBC Hgb Hct MCV MCH MCHC RDW Plt Count MPV Neut % (Auto) Lymph % (Auto) [place] % (Auto) Eos % (Auto) Baso % (Auto) Absolute Neuts (auto) Absolute Lymphs (auto) Absolute Monos (auto) Absolute Eos (auto) Absolute Basos (auto) Absolute Nucleated RBC Nucleated RBC % INR (Anticoag Therapy) Sodium Potassium Chloride Carbon Dioxide Anion Gap BUN Creatinine Est GFR ( Amer) Est GFR (Non-Af Amer) BUN/Creatinine Ratio Glucose POC Glucose (mg/dL) 210 H Calcium C-Reactive Protein Assessment - Problem List Assessment: Patient Problems Acute gout (Acute) Acute renal failure (Acute) Anemia (Acute) Septic arthritis of knee, left (Acute) Diverticulosis (Chronic) Esophageal stricture (Chronic) Generalized anxiety disorder (Chronic) H/O mechanical aortic valve replacement (Chronic) Hyperlipidemia (Chronic) Hypothyroidism (Chronic) Long-term (current) use of anticoagulants, INR goal 2.5-3.5 (Chronic) Secondary hyperparathyroidism (Chronic) Stage 3 chronic kidney disease (Chronic) Thoracic aortic aneurysm (Chronic) Type 2 diabetes mellitus without complications (Chronic) Abnormal EKG (Chronic) Hypertension (Chronic) Plan: Acute gout (Acute) I have reviewed both JEAN Vail's and Dr. Guadalupe's notes. I also spoke to both Dr. Silva and Dr. Guadalupe. This is most likely acute gout of right knee and both halluces. It may be that the low uric acid levels are due to recruitment of circulating uric acid in the acute growth of multiple crystals of uric acid. We are treating him with prednisone 20 mg daily. I will also add some colchicine. His CRP is improved today - but remains high. He will require high dose allopurinol following this illness. Acute renal failure (Acute) I am concerned this is not just pre-renal failure, but represents uric acid nephropathy. I will continue IVF. Anemia (Acute) I think his anemia is due to an acute phase reaction and at present don't want to give him a transfusion - but I will follow his Hgb and will reconsider this if his Hgb is lower tomorrow. Septic arthritis of knee, left (Acute) This is unlikely - his cultures are negative after 24 hours. I will stop the ceftriaxone tomorrow if the cultures remain negative. Nausea: This may be due to his multiple medications. Comorbidities: Type 2 diabetes mellitus without complications (Chronic) Secondary diagnoses Diverticulosis (Chronic) Esophageal stricture (Chronic) Generalized anxiety disorder (Chronic) H/O mechanical aortic valve replacement (Chronic) Hyperlipidemia (Chronic) Hypothyroidism (Chronic) Long-term (current) use of anticoagulants, INR goal 2.5-3.5 (Chronic) Secondary hyperparathyroidism (Chronic) Stage 3 chronic kidney disease (Chronic) Thoracic aortic aneurysm (Chronic) Abnormal EKG (Chronic) Hypertension (Chronic) I discussed the above with Scott Sultana and called Samantha Sultana.
--- NOTE | 2019-06-12 08:39 | PN ---
Progress Note - Progress Note Date of Service: 06/12/19 Note: Correction: He is not taking allopurinol - he is taking febuxostat (uloric) 40 mg daily. I will consider increasing the dose when his renal function improves and away from the acute flare.
[2019-06-12] MEDS: traMADol TAB* 50 MG PO PRN ×2 (08:54→21:48)
[2019-06-12] MEDS ORDERED: Levothyroxine TAB* 75 MCG TAB PO SCH (09:00)
[2019-06-12] MEDS: Ferrous Sulfate TAB* 325 MG PO SCH (09:34)
[2019-06-12] MEDS: Insulin GLARGINE(*) 1 UNITS UNIT SUBCUT SCH (09:35)
--- NOTE | 2019-06-12 10:24 | CONS ---
CC: Dr. Maria * CONSULTATION/PROGRESS NOTE/ORTHOPEDIC NOTE: DATE OF CONSULT: 06/12/19 CHIEF COMPLAINT: Left knee pain, right forefoot pain, and unable to walk. HISTORY OF PRESENT ILLNESS: This patient is well-known to me, he is cared for by Dr. Maria, and he contacted me this week as he was leaving the emergency room on 06/10/19. He had been taking there by ambulance with severe pain and unable to walk. He came over to my office and he was seen with difficulty there because he could hardly get out of the car and transfer, and in the office, he was acutely distressed with his left knee swelling and his knee was aspirated in my office for 40 mL of bloody cloudy fluid. This fluid was sent for culture and sensitivity, Gram stain, cell count, and crystals. I then insisted that the patient go back over to the emergency room. I spoke with the emergency room nursing staff and physicians, and he was subsequently admitted by Dr. Reynaga with the severe inflammatory arthritis of his left knee that certainly could be septic. He was also noted to be anemic, renal insufficiency. He has diabetes and leukocytosis. The patient has been seen and checked by Dr. Maria and I am following up on rounds on 06/11/19, still acutely distressed with his left knee and right foot. Physical Therapy tried to have him do some walking and he was unable to do there with joint pains. The left knee culture has no growth so far and this culture was done prior to any antibiotic administration. PHYSICAL EXAMINATION: Currently, not acutely distressed at rest but unwilling to walk (the physical therapist saw him on 06/11/19 and he was unwilling, unable to weightbear on either lower extremity). On his examination, he is able to do a leg lift on the left. The left knee markedly swollen, not red, but hard and diffusely tender. The left leg, no swelling. Left ankle and foot , some swelling. Active movements of the left ankle up and down. The left posterior tibial pulse is 2+. The right knee and leg, no swelling. The right forefoot, redness and marked tenderness around the great toe MTP joint. No gross fluctuance. LABORATORY DATA: His CRP 502. Sedimentation rate 120. INR 2.09. White blood count initially 21,400 and then the white blood count has come down to 14,100. Hemoglobin 8.5, hematocrit 25, platelets 334,000. BUN 72, creatinine 2.32, calcium 6.9. C-reactive protein on 06/12/19 now down to 312. Coagulation currently 2.6, INR is 2.63. Sodium 130. Uric acid 4.2. I spoke with the laboratory and the person who did the Gram stain saw monosodium urate crystals on the Gram stain, this was not reported formally. The joint fluid shows monosodium urate crystals and the differential in the joint fluid is 87% polys, 4% lymphs, and 9% monos. The white count in the fluid 17,500, red cells 51,000. The culture, no growth on 06/11/19. IMPRESSIONS: This patient has severe inflammatory arthritis and gout. It is complicated by not being able to give him any antiinflammatory medications. Also of note when 7 to [address] Maria gave him steroids and the patient took the steroids for 1 day, he had a miraculous improvement and then unfortunately he stopped the steroids. Today, I discussed the case with Dr. Maria. He did not get ceftriaxone and we will give him a dose of ceftriaxone, adjust it for his kidney function, and we will restart steroids. I have recommended an arthroscopic surgery of his left knee to irrigate, culture, debride, and drain to help with pain relief and care of this severely arthritic, acutely inflamed joint with gout and possible sepsis. PLAN: The plan is for arthroscopic surgery, left knee, 06/12/19 in the afternoon. The patient and we discussed the situation and he understands what we are trying to accomplish with irrigation of the joint and cleaning out the current gouty flare-up and possible irrigation for infection. Dr. Maria and Dr. Silva decided upon rheumatology consultation to see if there are any ideas regarding his gout, which is difficult to control and whether he needs any other antiinflammatory consideration medication harding. [id number]/[facility] #: [id number] [facility] HOSPITALGillian
--- NOTE | 2019-06-12 11:06 | CONS ---
CONSULTATION NOTE: DATE OF CONSULT: 06/12/19 CONSULTING PHYSICIAN: Cristi Maria MD REASON FOR CONSULT: Evaluate for gout. CHIEF COMPLAINT: Pain and swelling in the knee and toe. HISTORY OF PRESENT ILLNESS: Mr. Sultana is a 74-year-old male who is on chronic Coumadin and has chronic renal insufficiency with a history of presumed attacks primarily involving his toe, which have been getting worse over the last year. He has had frequent attacks and he recalls that prednisone has helped him significantly when he has these attacks. He now presents to the hospital with an inability to bear weight in his left leg and he went to the emergency room. He had an aspiration of the joint, and this was sent for crystal analysis and culture and sensitivity. So far cultures are negative. I spoke with Dr. Silva who plans to wash out his knee today and we are awaiting final results on his knee synovial fluid. In the meantime, it was felt that he might have an underlying attack of gout as he also has involvement of his first MTP joint as well too and he was started on prednisone 20 mg daily. This morning, he continues to have some pain and swelling of the left knee as well as his MTP joint. He also is felt to have a possibility of a septic arthritis given his markedly elevated inflammatory markers and elevated white count with a shift to the left. He was started presumptively on a third generation cephalosporin for a septic arthropathy. However, constitutionally he denies fevers, sweats, chills, or other systemic symptoms of sepsis. He has had a decreased appetite for several days, but overall feels fairly well this morning except for the persistent swelling of the left knee and also the toe. He is also looking forward to getting a left knee replacement. PAST MEDICAL HISTORY: Includes: 1. Acute gout. 2. Renal failure. 3. Septic arthritis of the knee. 4. Diverticulosis. 5. Esophageal stricture. 6. Generalized anxiety disorder. 7. History of mechanical aortic valve replacement. 8. Hyperlipidemia. 9. Hypothyroidism. 10. Hyperparathyroidism. 11. Chronic kidney disease. 12. Thoracic aortic aneurysm. 13. Type 2 diabetes mellitus. CURRENT MEDICATIONS: Include: 1. Prednisone 20 mg daily. 2. Ascorbic acid. 3. Aspirin. 4. Calcium polycarbophil. 5. Cetirizine. 6. Febuxostat 40 mg daily. 7. Finasteride 0.125 mg t.i.d. 8. Insulin. 9. Levothyroxine 50 mcg every other day. 10. Mirabegron. 11. Oxycodone as needed for pain. 12. Pravastatin 25 mg daily. 13. Tamsulosin 0.4 mg as needed. 14. Tramadol 50 mg as needed. 15. Warfarin 2 mg daily. FAMILY HISTORY: Notable for arthritis in his father and mother, but no acute history of gout. SOCIAL HISTORY: He does not smoke or drink any alcohol. Has a supportive family and has been otherwise active until his knee swelling occurred. He is originally from [place]. REVIEW OF SYSTEMS: Constitutionally; he does have some intentional weight loss , but denies any fever or night sweats. Pulmonary was negative for cough, shortness of breath, or other acute symptoms. Cardiology: Negative for chest pain or palpitations or swelling of the ankles. Gastrointestinal: Notable for decreased appetite which has stabilized, but no nausea or vomiting. Genitourinary: Negative for dysuria or hematuria. Neurologic: Negative for headaches. Musculoskeletal: As noted above. Other 14-point review of systems were reviewed and were otherwise negative. PHYSICAL EXAM: Vital Signs: His pulse rate of 90, O2 sat is 97%, blood pressure 124/62. Intake was 1575. General: He is a pleasant male, conversive , in no acute distress. HEENT Exam: Normocephalic and atraumatic. Pupils equal, round, and reactive to light and accommodation. Lungs were clear to auscultation bilaterally with full chest expansion. Heart: Regular rate and rhythm, slight tachycardia. Abdomen: Soft, nontender, and nondistended. Positive bowel sounds. Neurologic: Nonfocal. Skin: No new rash, no tophi. Neurologic Exam: Normal power and normal tone. Musculoskeletal Exam: There was prominent osteoarthritic deformities of the left knee with varus knee changes with 2+ synovitis involving the lateral aspect of the knee, also there was slight tenderness of the left MTP joint which was not erythematous. He preferred me to not touch it very much, but he noted that it was difficult to mobilize it and he was unable to dorsiflex or plantarflex the left toe. Other joints revealed no synovitis; his right knee had mild varus deformities but did not have the significant end stage OA knee deformities that the left knee had DIAGNOSTIC STUDIES/LAB DATA: He had a sodium of 132, markedly elevated ESR and CRP. His current white count is 13.9 with a hemoglobin of 7.9, INR of 2.63, creatinine 2.32, glucose of 171, calcium of 6.9, C-reactive protein on 07/24, 0.74. His initial white count was 21,400 on the . ASSESSMENT: Mr. Sultana is a 74-year-old male with a history of an oligoarticular inflammatory arthropathy involving the knee and the first metatarsophalangeal joint. 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 At this point, he might have an attack of gout, but it seems very likely that he may have another crystalline arthropathy as well given his metabolic conditions and low uric acid. I agree with doing an arthroscopic evaluation of the knee (which I understand he will have today) and would consider doing a synovial biopsy if he is found to have extensive synovial proliferation. Synovial fluid should be viewed under polaroscopy for crystal formation. He is certainly at risk for pseudogout as well given his metabolic conditions including hyperparathyroidism. I also recommend re- checking his uric acid in about a week once his attack is settled to get an accurate reflection of the metabolism of his uric acid. He is currently on prednisone 20 mg daily at a very low dose given the possibility of an infectious type picture (which seems less likely than a crystalline arthropathy) . I agree with the trial of this for the next 5 to 6 days, but watch his sugar. Alternatively, we could also consider colchicine 0.3 mg every 2 to 3 days but watch his kidney function closely. This may help if he has gout or pseudogout. He has been on Uloric for uric acid lowering and prevention of gout attack. So it is possible that he certainly has underlying pseudogout as well superimposed on his baseline history of gout. In terms of his knee replacement surgery that he is planning to do, ideally he should be stable with minimal inflammation and a lack of an acute process of the knee or other joints when he has knee replacement surgery. I discussed this case extensively with Dr. Silva as well as Dr. Maria. We will continue to follow daily. [id number]/[facility] #: [id number] [facility]
[2019-06-12] MEDS ORDERED: Buffered Lidocaine 1% SYRIN* 1 ML/SYRINGE INTRADERM ONE (14:33)
[2019-06-12] MEDS: cefTRIAXone(*) 2 GM in NS 0.9% 100 ML* 100 ML IVPB SCH (15:04)
[2019-06-12] MEDS ORDERED: Midazolam* 1 MG/ML 2 ML VIAL (2 MG) ONE (15:27)
[2019-06-12] MEDS ORDERED: fentaNYL* 50 MCG/ML 2 ML VIAL (100 MCG VIAL) ONE (15:27)
[2019-06-12] MEDS ORDERED: Propofol* 10 MG/ML 20 ML BTL ONE (15:27)
[2019-06-12] MEDS ORDERED: Lidocaine 1% w EPI 1:200,000* SDV 30 ML VIAL ONE (15:39)
[2019-06-12] MEDS ORDERED: Bupivacaine 0.25% EPI 200,000* 30 ML SDV ONE (16:04)
[2019-06-12 16:17] LABS: Urine Creatinine Concentration 69.39 mg/dL
[2019-06-12] MEDS ORDERED: fentaNYL* 50 MCG/ML 2 ML VIAL (100 MCG VIAL) IV PRN (16:31)
[2019-06-12] MEDS ORDERED: oxyCODONE TAB* 5 MG TAB PO PRN (16:31)
[2019-06-12] MEDS ORDERED: Naloxone* 0.4 MG/ML 1 ML VIAL IV PRN (16:31)
[2019-06-12] MEDS ORDERED: HYDROmorphone INJ1* 1 MG/ML SYRINGE IV PRN (16:31)
[2019-06-12] MEDS: PRAVASTATIN 10 MG PO SCH (18:18)
[2019-06-12] MEDS: oxyCODONE/Acetamin 5/325 MG* TAB PO PRN (18:18)
[2019-06-12] MEDS: Finasteride TAB* 5 MG PO SCH (18:19)
[2019-06-12] MEDS: Warfarin TAB(*) 2 MG PO SCH (18:19)
[2019-06-12] MEDS: Tamsulosin CAP* 0.4 MG PO SCH (18:19)
[2019-06-12] MEDS: Fluticasone NASAL SPRAY 50MCG* 16 gm SPRAY BTL BOTH NARES SCH (18:19)
[2019-06-13] MEDS: Insulin LISPRO* 1 UNITS UNIT SUBCUT SCH ×6 (02:23→21:27)
[2019-06-13] MEDS: oxyCODONE/Acetamin 5/325 MG* TAB PO PRN (03:15)
[2019-06-13 04:57] LABS: ABS Lymphocytes 0.2 10^3/ul (1.0-4.8); ABS Monocytes 0.7 10^3/ul (0-0.8); Hematocrit 19 % (42-52); Hemoglobin 6.6 g/dL (14.0-18.0); Mean Corpuscular HGB Conc 35 g/dL (31-36); Mean Corpuscular Hemoglobin 32 pg (27-31); Mean Corpuscular Volume 93 fL (80-94); Mean Platelet Volume 7.2 fL (7.4-10.4); Platelet Count 303 10^3/uL (150-450); Red Blood Count 2.06 10^6 /uL (4.18-5.48); Red Cell Distribution Width 17 % (10-15)
[2019-06-13 05:14] LABS: BUN/Creatinine Ratio 34.8 (8-20); C Reactive Protein 177.6 mg/L (<8.01); EGFR African American 40.3 (>60); EGFR Non-African American 33.3 (>60)
[2019-06-13 05:22] LABS: Calcium 6.3 mg/dL (8.6-10.3); Potassium 5.1 mmol/L (3.5-5.0)
[2019-06-13] MEDS: Levothyroxine TAB* 75 MCG TAB PO SCH (05:39)
--- NOTE | 2019-06-13 07:37 | PN ---
Subjective - Subjective Reason for Note: Progress Note History: Brook Quiñones underwent arthroscopy of his left knee with Dr. Silva. He tolerated the procedure well. He has much less pain in his left leg this morning. He denies any chest pain, palpitations, shortness of breath, cough, fever, sweats. He has no nausea or vomiting, he is constipated. I note he has low total calcium level. He denies any muscle cramps or spasms. Active Problems: Active Problems Acute gout (Acute) M10.9 Acute renal failure (Acute) Anemia (Acute) D64.9 H/O arthroscopy of left knee (Acute) Z98.890 Hypocalcemia (Acute) E83.51 Septic arthritis of knee, left (Acute) M00.9 Diverticulosis (Chronic) K57.90 Esophageal stricture (Chronic) K22.2 Generalized anxiety disorder (Chronic) F41.1 H/O mechanical aortic valve replacement (Chronic) Z95.2 Hyperlipidemia (Chronic) E78.5 Hypothyroidism (Chronic) E03.9 Long-term (current) use of anticoagulants, INR goal 2.5-3.5 (Chronic) Z79.01 Secondary hyperparathyroidism (Chronic) N25.81 Stage 3 chronic kidney disease (Chronic) N18.3 Thoracic aortic aneurysm (Chronic) I71.2 Type 2 diabetes mellitus without complications (Chronic) E11.9 Current Medications: Current Medications Acetaminophen (Tylenol Tab*) 650 mg PO Q6H PRN PRN Reason: PAIN-MODERATE/TEMP >/= 100.4 Ascorbic Acid (Vitamin C Tab*) 500 mg PO DAILY [facility] Last Admin: 06/12/19 07:40 Dose: 500 mg Aspirin (Aspirin Ec Tab*) 81 mg PO DAILY [facility] Last Admin: 06/12/19 07:40 Dose: 81 mg Calcium Polycarbophil (Fibercon Tab*) 625 mg PO DAILY WITH MEAL [facility] Last Admin: 06/12/19 07:40 Dose: 625 mg Cetirizine HCl (Zyrtec*) 10 mg PO DAILY [facility] Last Admin: 06/12/19 07:40 Dose: 10 mg Cinacalcet (Sensipar Tab*) 30 mg PO DAILY [facility] Last Admin: 06/12/19 07:40 Dose: 30 mg Dextrose (D50w Syringe 50 Ml*) 12.5 gm IV PUSH .FOR FS < 60 - SS PRN PRN Reason: FS < 60 Diclofenac Sodium (Voltaren 1% Gel (Nf)) 1 applic TOPICAL BID [facility]; Protocol Last Admin: 06/12/19 20:36 Dose: Not Given Febuxostat (Uloric(Nf)) 40 mg PO DAILY [facility] Last Admin: 06/12/19 07:40 Dose: 40 mg Ferrous Sulfate (Ferrous Sulfate Tab*) 325 mg PO DAILY@1000 [facility] Last Admin: 06/12/19 09:34 Dose: 325 mg Finasteride (Proscar Tab*) 5 mg PO QPM [facility] Last Admin: 06/12/19 18:19 Dose: 5 mg Fluticasone Propionate (Flonase Nasal [place] 50mcg*) 2 spray BOTH NARES QPM [facility] Last Admin: 06/12/19 18:19 Dose: Not Given Hyoscyamine (Anaspaz Tab*) 0.125 mg PO TID PRN PRN Reason: SPASMS Last Admin: 06/11/19 15:22 Dose: 0.125 mg Potassium Chloride/Sodium Chloride (Ns 0.9% W/ 20 Meq Kcl 1000 Ml*) 1,000 mls @ 100 mls/hr IV PER RATE [facility] Last Admin: 06/12/19 23:09 Dose: 100 mls/hr Ceftriaxone Sodium 2 gm/ (Sodium Chloride) 100 mls @ 200 mls/hr IVPB Q24H [facility] Last Admin: 06/12/19 15:04 Dose: 200 mls/hr Insulin Glargine (Lantus(*)) 6 units SUBCUT Q24H [facility] Last Admin: 06/12/19 09:35 Dose: 6 units Insulin Human Lispro (Humalog*) 0 units SUBCUT Q4HR [facility]; Protocol Last Admin: 06/13/19 05:39 Dose: 1 unit Levothyroxine Sodium (Synthroid Tab*) 50 mcg PO EVERY OTHER DAY@0600 [facility] Last Admin: 06/12/19 05:49 Dose: 50 mcg Levothyroxine Sodium (Synthroid Tab*) 75 mcg PO EVERY OTHER DAY@0600 [facility] Last Admin: 06/13/19 05:39 Dose: 75 mcg Mirabegron (Myrbetriq (Nf)) 25 mg PO DAILY [facility] Last Admin: 06/12/19 07:41 Dose: Not Given Multivitamins/Minerals (Theragran/Minerals Tab*) 1 tab PO DAILY [facility] Last Admin: 06/12/19 07:40 Dose: 1 tab Pto: Mirabegron 50mg (Er Tablet) 1 dose PO DAILY [facility] Last Admin: 06/12/19 07:40 Dose: 1 dose Ondansetron HCl (Zofran Inj*) 4 mg IV Q4H PRN PRN Reason: NAUSEA/VOMITING Oxycodone/Acetaminophen (Percocet 5/325 Tab*) 1 tab PO Q6H PRN PRN Reason: PAIN - MODERATE Last Admin: 06/13/19 03:15 Dose: 1 tab Pravastatin Sodium (Pravachol (Nf)) 10 mg PO QPM [facility] Last Admin: 06/12/19 18:18 Dose: 10 mg Prednisone (Deltasone 20 Mg Tab) 20 mg PO DAILY [facility] Last Admin: 06/12/19 07:40 Dose: 20 mg Sitagliptin Phosphate (Januvia (Nf)) 25 mg PO DAILY [facility]; Protocol Last Admin: 06/12/19 07:40 Dose: 25 mg Tamsulosin HCl (Flomax Cap*) 0.4 mg PO QPM [facility] Last Admin: 06/12/19 18:19 Dose: 0.4 mg Tramadol HCl (Ultram*) 50 mg PO Q12H PRN PRN Reason: PAIN - MODERATE Last Admin: 06/12/19 21:48 Dose: 50 mg Warfarin Sodium (Coumadin Tab(*)) 2 mg PO DAILY@1700 [facility]; Protocol Last Admin: 06/12/19 18:19 Dose: 2 mg Home Medications: Home Medications Medication Instructions Recorded Confirmed Type Finasteride TAB* [Proscar TAB*] 5 mg PO QPM 09/03/14 06/10/19 History SitaGLIPtin (NF) [Januvia (NF)] 25 mg PO DAILY 09/03/14 06/10/19 History Fluticasone NASAL SPRAY 50MCG* 2 spray BOTH NARES QPM 12/04/15 06/10/19 History [Flonase NASAL SPRAY 50MCG*] Pravastatin (NF) [Pravachol (NF)] 10 mg PO QPM 12/04/15 06/10/19 History Tamsulosin CAP* [Flomax CAP*] 0.4 mg PO QPM 12/04/15 06/10/19 History Levothyroxine TAB* [Synthroid 75 75 mcg PO EVERY OTHER DAY 10/12/17 01/27/20 History MCG TAB*] amLODIPine TAB* [Norvasc 5 mg TAB*] 5 mg PO BID 02/23/17 06/10/19 History Calcium Polycarbophil TAB* 625 mg PO DAILY 08/30/18 06/10/19 History [Fibercon TAB*] Chlorthalidone TAB* [Hygroton TAB*] 12.5 mg PO DAILY 08/30/18 06/10/19 History Hyoscyamine TAB* [Anaspaz 0.125 MG 0.125 mg PO TID PRN 08/30/18 06/10/19 History TAB*] Acetaminophen TAB* [Tylenol TAB*] 650 mg PO Q6H PRN 06/10/19 06/10/19 History Ascorbic Acid TAB* [Vitamin C 500 mg PO DAILY 06/10/19 06/10/19 History TAB*] Aspirin EC TAB* [Ecotrin EC Low 81 mg PO DAILY 06/10/19 06/10/19 History Dose 81 MG*] Cetirizine* [ZyrTEC 10 MG TAB*] 10 mg PO DAILY 06/10/19 06/10/19 History Cinacalcet TAB* [Sensipar TAB*] 30 mg PO DAILY 06/10/19 06/10/19 History Diclofenac 1% GEL (NF) [Voltaren 1 applic TOPICAL BID 06/10/19 06/10/19 History 1% GEL (NF)] Febuxostat(NF) [Uloric(NF)] 40 mg PO DAILY 06/10/19 06/10/19 History Ferrous Sulfate TAB* 325 mg PO DAILY 06/10/19 06/10/19 History Levothyroxine TAB* [Synthroid TAB*] 50 mcg PO EVERY OTHER DAY 06/10/19 06/10/19 History Losartan TAB* [Cozaar TAB*] 50 mg PO DAILY 06/10/19 06/10/19 History Multivitamins/Minerals TAB* 1 tab PO DAILY 06/10/19 06/10/19 History [Theragran/minerals TAB*] Warfarin TAB(*) [Coumadin TAB(*)] 2 mg PO DAILY 06/10/19 06/10/19 History oxyCODONE/Acetamin 5/325 MG* 1 tab PO Q6H PRN 06/10/19 06/10/19 History [Percocet 5/325 TAB*] traMADol TAB* [Ultram*] 50 mg PO Q6HR PRN 06/10/19 06/10/19 History Mirabegron (NF) [Myrbetriq (NF)] 50 mg PO DAILY 06/11/19 06/11/19 History Allergies: Allergies Allergy/AdvReac Type Severity Reaction Status Date / Time No Known Allergies Allergy Verified 06/10/19 17:03 Objective - Vital Signs Vital Signs: Vital Signs 06/12/19 06/12/19 06/12/19 07:50 08:54 10:01 Temperature Pulse Rate Respiratory 18 18 16 Rate Blood Pressure (mmHg) O2 Sat by Pulse Oximetry 06/12/19 06/12/19 06/12/19 11:15 16:45 16:49 Temperature 98.9 F 97.7 F Pulse Rate 70 90 91 Respiratory 16 11 14 Rate Blood Pressure 115/64 110/64 (mmHg) O2 Sat by Pulse 95 100 100 Oximetry 06/12/19 06/12/19 06/12/19 16:50 16:55 17:35 Temperature 97.8 F Pulse Rate 92 97 85 Respiratory 16 15 18 Rate Blood Pressure 139/67 150/67 132/55 (mmHg) O2 Sat by Pulse 100 100 98 Oximetry 06/12/19 06/12/19 06/12/19 18:18 18:32 19:21 Temperature 97.9 F 97 F Pulse Rate 82 82 Respiratory 18 18 18 Rate Blood Pressure 129/61 132/49 (mmHg) O2 Sat by Pulse 100 97 Oximetry 06/12/19 06/12/19 06/12/19 20:00 20:48 21:38 Temperature 97.4 F Pulse Rate 79 Respiratory 16 16 16 Rate Blood Pressure 124/56 (mmHg) O2 Sat by Pulse 97 Oximetry 06/12/19 06/12/19 06/13/19 21:48 23:16 00:00 Temperature 97.2 F Pulse Rate 80 Respiratory 16 18 Rate Blood Pressure 122/55 (mmHg) O2 Sat by Pulse 97 97 Oximetry 06/13/19 06/13/19 06/13/19 00:36 02:43 03:15 Temperature 97.7 F Pulse Rate 81 Respiratory 16 16 16 Rate Blood Pressure 133/52 (mmHg) O2 Sat by Pulse 94 Oximetry 06/13/19 05:40 Temperature Pulse Rate Respiratory 16 Rate Blood Pressure (mmHg) O2 Sat by Pulse Oximetry - Intake and Output Intake and Output: Intake & Output 06/10/19 06/11/19 06/12/19 06/13/19 11:59 11:59 11:59 11:59 Intake Total 1575 2082 3529 Output Total 920 1080 775 Balance 655 1002 2754 Weight 116 lb 9.6 oz Intake: IV Fluids 1575 1022 2109 LR 500 NS (0.9%) 20 meq KCL 1022 1609 Normal saline 1575 Oral 0 1060 1420 Output: Urine 920 1080 775 Other: Estimated Void Large # Bowel Movements 0 1 1 Estimated Stool Amount Small Medium Estimated Blood Loss minimal Comment # Voids 2 ADLs: Meal Record Start: 06/10/19 23: 34 Freq: DAILY@0900,1400,1800 Status: Active Protocol: Created 06/10/19 23:34 System (Rec: 06/10/19 23:34 System MED-C05) Document 06/11/19 09:00 [id number] (Rec: 06/11/19 09:14 [id number] MED-M11) Document 06/11/19 12:52 [id number] (Rec: 06/11/19 12:52 [id number] MED-M11) Document 06/11/19 18:00 [id number] (Rec: 06/11/19 18:10 [id number] MED-C04) Document 06/12/19 09:00 [id number] (Rec: 06/12/19 13:30 [id number] MED-C09) Document 06/12/19 13:30 [id number] (Rec: 06/12/19 13:30 [id number] MED-C09) Document 06/12/19 18:00 [id number] (Rec: 06/12/19 18:38 [id number] MED-C09) Intake and Output Start: 06/10/19 17: 03 Freq: Status: Active Protocol: Created 06/10/19 17:03 System (Rec: 06/10/19 17:03 System ED-M01) Document 06/11/19 07:31 [id number] (Rec: 06/11/19 07:31 [id number] MED-M11) Intake and Output Start: 06/10/19 23: 34 Freq: DAILY@0600,1400,2200 Status: Active Protocol: Created 06/10/19 23:34 System (Rec: 06/10/19 23:34 System MED-C05) Document 06/11/19 05:29 [id number] (Rec: 06/11/19 05:30 [id number] MED-C09) Document 06/11/19 12:08 [id number] (Rec: 06/11/19 12:08 [id number] MED-C16) Document 06/11/19 12:53 [id number] (Rec: 06/11/19 12:53 [id number] MED-M11) Document 06/11/19 22:00 [id number] (Rec: 06/11/19 23:32 [id number] MED-C09) Document 06/12/19 06:00 [id number] (Rec: 06/12/19 06:21 [id number] MED-C13) Document 06/12/19 14:00 [id number] (Rec: 06/12/19 14:48 [id number] MED-C09) Document 06/12/19 20:00 [id number] (Rec: 06/12/19 23:00 [id number] MED-C15) Document 06/12/19 21:11 [id number] (Rec: 06/12/19 21:12 [id number] MED-C11) Document 06/13/19 03:02 [id number] (Rec: 06/13/19 03:03 [id number] MED-C15) Document 06/13/19 05:13 [id number] (Rec: 06/13/19 05:15 [id number] MED-C11) - Physical Exam General Physical Exam Comment: He has a tremor. He is negative for Chvostek's sign and for Trousseau's sign after 2 mins with BP cuff > systolic. General: No Cyanosis, Yes Anemia, No Jaundice, No Clubbing Lungs and Chest: Yes: Chest Expansion Full, Chest Expansion Symetrica, Percussion Note Resonant, Vessicular Breath Sounds. No: Crackles, Wheezes, Respiratory Distress, Use of Accessory Muscles Heart Rate and Rhythm: Regular Additional Cardiovascular: Yes: Heart Murmur - soft systolic murmur at apex. No : Normal Heart Sounds - mechanical valve heart sounds, Carotid Bruits, Pedal Edema Abdominal Exam: Yes: Soft, Bowel Sounds Present. No: Distention, Abdominal Tenderness Results - Results Lab Results: Laboratory Results - last 24 hr 06/12/19 06/12/19 06/12/19 09:27 11:49 13:36 WBC RBC Hgb Hct MCV MCH MCHC RDW Plt Count MPV Neut % (Auto) Lymph % (Auto) [place] % (Auto) Eos % (Auto) Baso % (Auto) Absolute Neuts (auto) Absolute Lymphs (auto) Absolute Monos (auto) Absolute Eos (auto) Absolute Basos (auto) Absolute Nucleated RBC Nucleated RBC % Sodium Potassium Chloride Carbon Dioxide Anion Gap BUN Creatinine Est GFR ( Amer) Est GFR (Non-Af Amer) BUN/Creatinine Ratio Glucose POC Glucose (mg/dL) 160 H 135 H Calcium C-Reactive Protein Ur Creatinine Concen 69.39 Ur Urea Nitrogen Conc 698 Fluid Crystals 06/12/19 06/12/19 06/12/19 14:51 16:45 18:09 WBC RBC Hgb Hct MCV MCH MCHC RDW Plt Count MPV Neut % (Auto) Lymph % (Auto) [place] % (Auto) Eos % (Auto) Baso % (Auto) Absolute Neuts (auto) Absolute Lymphs (auto) Absolute Monos (auto) Absolute Eos (auto) Absolute Basos (auto) Absolute Nucleated RBC Nucleated RBC % Sodium Potassium Chloride Carbon Dioxide Anion Gap BUN Creatinine Est GFR ( Amer) Est GFR (Non-Af Amer) BUN/Creatinine Ratio Glucose POC Glucose (mg/dL) 148 H 188 H Calcium C-Reactive Protein Ur Creatinine Concen Ur Urea Nitrogen Conc Fluid Crystals Monosodium urate A 06/12/19 06/13/19 06/13/19 21:28 02:16 04:41 WBC 12.0 H RBC 2.06 L Hgb 6.6 L Hct 19 L MCV 93 MCH 32 H MCHC 35 RDW 17 H Plt Count 303 MPV 7.2 L Neut % (Auto) 92.3 Lymph % (Auto) 2.0 [place] % (Auto) 5.6 Eos % (Auto) 0.0 Baso % (Auto) 0.1 Absolute Neuts (auto) 11.0 H Absolute Lymphs (auto) 0.2 L Absolute Monos (auto) 0.7 Absolute Eos (auto) 0.0 Absolute Basos (auto) 0.0 Absolute Nucleated RBC 0.0 Nucleated RBC % 0.0 Sodium Potassium Chloride Carbon Dioxide Anion Gap BUN Creatinine Est GFR ( Amer) Est GFR (Non-Af Amer) BUN/Creatinine Ratio Glucose POC Glucose (mg/dL) 322 H 204 H Calcium C-Reactive Protein Ur Creatinine Concen Ur Urea Nitrogen Conc Fluid Crystals 06/13/19 06/13/19 04:41 07:14 WBC RBC Hgb Hct MCV MCH MCHC RDW Plt Count MPV Neut % (Auto) Lymph % (Auto) [place] % (Auto) Eos % (Auto) Baso % (Auto) Absolute Neuts (auto) Absolute Lymphs (auto) Absolute Monos (auto) Absolute Eos (auto) Absolute Basos (auto) Absolute Nucleated RBC Nucleated RBC % Sodium 135 Potassium 5.1 H Chloride 109 Carbon Dioxide 18 L Anion Gap 8 BUN 69 H Creatinine 1.98 H Est GFR ( Amer) 40.3 Est GFR (Non-Af Amer) 33.3 BUN/Creatinine Ratio 34.8 H Glucose 190 H POC Glucose (mg/dL) 178 H Calcium 6.3 L* C-Reactive Protein 177.60 H Ur Creatinine Concen Ur Urea Nitrogen Conc Fluid Crystals EKG Report: Sinus rhythmm 76 IL 147 QTc 486 QRS axis -20 RBBB. Premature atrial contractions (I directly read this EKG) Other Results/Reports: RUN DATE: 06/13/19 [facility] LAB LIVE PAGE 1 RUN TIME: [address] [place] [address] Specimen Inquiry Name: BROOK QUIÑONES JR : [address]: Cristi Maria MD Acct: [id number] Unit: [id number] AGE: 74 Location: [place] [address] Re06/10/19 SEX: M Status: ADM IN SPEC: [id number] JESSICA: 06/12/19-[address]:Cristi Maria MD REQ: [id number] RECD: 06/12/19 STATUS: RES OTHR DR:Willie Reynaga MD _ Ferdinand Guadalupe MD SOURCE: BODY FLUID SPDESC: ORDERED: BF Cult/GS, Anaerobic Cult, MRSA/SA SSTI Procedure Result Reported Site Body Fluid Gram Stain Preliminary 06/12/19- 2115 ML 4+ Neutrophils No Organisms Seen Preparation By Direct Smear Body Fluid Culture PENDING Anaerobic Culture PENDING MRSA/S. aureus SSTI PCR Final 06/12/19- 2231 ML Organism 1 MRSA NEGATIVE Organism 2 S.AUREUS NEGATIVE As with all diagnostic procedures, the laboratory results obtained should be used in conjunction with other clinical information available to the physician, including confirmation by another method, as applicable. * [facility] - Main Lab . END OF REPORT DEPARTMENT OF PATHOLOGY, [address] [place] [address] Yossi Barroso M.D. Director [facility] # [id number] Assessment - Problem List Assessment: Patient Problems Acute gout (Acute) Acute renal failure (Acute) Anemia (Acute) H/O arthroscopy of left knee (Acute) Hypocalcemia (Acute) Septic arthritis of knee, left (Acute) Diverticulosis (Chronic) Esophageal stricture (Chronic) Generalized anxiety disorder (Chronic) H/O mechanical aortic valve replacement (Chronic) Hyperlipidemia (Chronic) Hypothyroidism (Chronic) Long-term (current) use of anticoagulants, INR goal 2.5-3.5 (Chronic) Secondary hyperparathyroidism (Chronic) Stage 3 chronic kidney disease (Chronic) Thoracic aortic aneurysm (Chronic) Type 2 diabetes mellitus without complications (Chronic) Abnormal EKG (Chronic) Hypertension (Chronic) Plan: Acute gout (Acute)Septic arthritis of knee, left (Acute) He has negative cultures from left knee aspirations from 06/06, 06/10/2019. The arthroscopic specimen yesterday was negative on gram stain and negative on PCR for Staph aureus and MRSA. He has increased neutrophils and uric acid crystals. This is despite a serum uric acid level of 4.2. 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 I will stop the ceftriaxone and maintain the steroids. Acute renal failure (Acute) I note that the BUN is disproportionately elevated and the Cr is coming down. His BUN/CR ratio is actually rising. Possibilities: * Pre-renal - despite IVF * Upper GI bleed (see anemia below) with increased protein absorption I will check his fractional sodium excretion. I will continue his volume replacement. Anemia (Acute) His Hgb has declined each day. Possibilities: * Acute phase reaction due to acute gout (see elevations of CRP) * Blood loss from arthroscopy - he has had worsening anemia preceding this procedure * Loss of blood from upper GIT - however he has no symptoms and he is constipated (blood is a laxative) * Acute renal failure and loss of erythropoietin Due to his low Hgb/HCT I am going to transfuse him 2 units packed RBCs. I obtained verbal informed consent. I discussed complications of transfusion that include fevers and rashes. H/O arthroscopy of left knee (Acute) He tolerated the procedure - his knee is being cooled at present Hypocalcemia (Acute) He is negative for Trousseau's sign and Chvostek's sign, he is asymptomatic. Possibilities: * Low albumin due to acute phase reaction - I am checking his ionized calcium * False negative physical signs and actual hypocalcemia * Loss of the production of 1,25 dihydroxyvitamin D due to acute renal disease ( perhaps due to urate nephropathy) * Parathyroid failure - I don't see why this should happen - I will check an intact PTH which I anticipate will be elevated I will give him calcitriol and calcium gluconate if his ionized calcium is low. Comorbidities: Type 2 diabetes mellitus without complications (Chronic) He was hyperglycemic after the procedure yesterday, this has improved today. I will not increase his insulin as I don't want him to become hypoglycemia Long-term (current) use of anticoagulants, INR goal 2.5-3.5 (Chronic) He is therapeutic and hence he may have had some blood loss from the procedure. Hypertension (Chronic) he has normal BP Abnormal EKG (Chronic) He has RBBB and some premature trial contractions. Secondary diagnoses Diverticulosis (Chronic) Esophageal stricture (Chronic) Generalized anxiety disorder (Chronic) H/O mechanical aortic valve replacement (Chronic) Hyperlipidemia (Chronic) Hypothyroidism Chronic) Secondary hyperparathyroidism (Chronic) Stage 3 chronic kidney disease (Chronic) Thoracic aortic aneurysm (Chronic) I explained the above to the patient and called his to inform her. They agree with the management plan.
[2019-06-13] MEDS ORDERED: diPHENhydraMINE PO* 25 MG PO PRN (08:07)
--- NOTE | 2019-06-13 08:27 | PN ---
Progress Note - Progress Note Date of Service: 06/13/19 SOAP: Subjective: [] Objective: [] Assessment: [] Plan: [] Spoke with Dr Maria this morning. He is aware patient did not lose any significant amount of blood during arthroscopy to explain further hgb/hct drop.
[2019-06-13] MEDS: MIRABEGRON 50 MG PO SCH (08:33)
[2019-06-13] MEDS: Insulin GLARGINE(*) 1 UNITS UNIT SUBCUT SCH (08:34)
[2019-06-13] MEDS: Cetirizine* 10 MG TAB PO SCH (08:35)
[2019-06-13] MEDS: CMCS:SitaGLIPtin (NF) 25 MG TAB PO SCH (08:35)
[2019-06-13] MEDS: Aspirin EC TAB* 81 MG TAB.EC PO SCH (08:35)
[2019-06-13] MEDS: FEBUXOSTAT 40 MG PO SCH (08:35)
[2019-06-13] MEDS: Ferrous Sulfate TAB* 325 MG PO SCH (08:35)
[2019-06-13] MEDS: Multivitamins/Minerals TAB PO SCH (08:35)
[2019-06-13] MEDS: PTO: Diclofenac 1% GEL (NF) 100 GM TUBE TOPICAL SCH ×2 (08:36→19:14)
[2019-06-13] MEDS: Ascorbic Acid TAB* 500 MG PO SCH (08:36)
[2019-06-13] MEDS: Calcium Polycarbophil TAB* 625 MG PO SCH (08:36)
--- NOTE | 2019-06-13 10:14 | PN ---
Progress Note - Progress Note Date of Service: 06/13/19 Note: Ortho: He is feeling some better. The CRP is 500 and now down to 177! Hct is 19% and we agree with transfusion. Agree with stopping Ceftriaxone. Dr. Guadalupe says he can have Colchicine 0.3mg every three days and we will not start that now. The studies of yesterday confirmed gout in the left knee. Exam today shows he can leg lift and bend and straighten the left knee some. He can go home once ambulatory with a walker. My staff will take care of his left knee dressing change in the next day or 2. He dislikes the cold pad in his dressing so we have discontinued that. Regarding his severe left knee arthritis and need for knee replacement I feel replacement can be considered for October or November if the knee recovers some and he is doing formal therapy OR exercising the left leg regularly at the gym or home. He was advised of this and understands/agrees. Plans: Mobilize with therapy, walker WBAT left.
[2019-06-13] MEDS ORDERED: Calcium Gluconate INJ* 3 GM in NS 0.9% 250 ML* 250 ML IV ONE (10:50)
[2019-06-13] MEDS: PTO: Mirabegron (NF) 25 MG TAB PO SCH (11:21)
[2019-06-13 11:29] LABS: Vitamin D Total 25(OH) 29.7 ng/mL (20-50)
[2019-06-13] MEDS ORDERED: NS 0.9% 250 ML* 250 ML ONE (11:46)
[2019-06-13] MEDS: Calcium Carbonate LIQ* 1,250 MG/5 ML UDC PO SCH ×4 (13:08→21:27)
--- NOTE | 2019-06-13 15:38 | OP ---
CC: Dr. Maria; Dr. Guadalupe * DATE OF OPERATION: 06/12/19 - ROOM #415 DATE OF : 47 SURGEON: Jesus Silva MD. GROUNDS CLEANER: JEAN Vail. ANESTHESIOLOGIST: Dr. Brandon Saldana. ANESTHESIA: LMA, general. 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 OPERATIVE PROCEDURE: Left knee arthroscopic lavage and debridement. COMPLICATIONS: There were no complications. DRAINS: There were no drains. TOURNIQUET: Tourniquet control was utilized on the left thigh. CONDITION: Stable to the recovery room. INDICATIONS: Severe pain in the left knee and the issues of sepsis and acute inflammatory arthritis. The patient was brought to the operating room after careful discussion with the patient and his that this procedure could worsen any of his conditions like his renal failure, his cardiac condition, his diabetes, and his anemia, bleeding certainly possible with the elevated INR, and the patient and his were still interested in proceeding with this procedure to help relieve pain and continue to confirm diagnosis. DESCRIPTION OF PROCEDURE: The patient was brought to the operating room, placed on the operating table in the supine position. General anesthetic was administered. The left proximal thigh was wrapped with a tourniquet. The left leg was given a prep from the tourniquet to the foot and then draped free and carefully sealed off in the usual fashion for arthroscopic surgery of the knee. We did our universal protocol time-out confirming Dylan Sultana Jr. and plan for left knee arthroscopic surgery. We all agreed and we proceeded. The knee had slightly cloudy synovial fluid; however, some of it was clear. The initial aspiration was saved and the knee irrigated clear very quickly with saline. We set the knee up for arthroscopy with the arthroscope lateral to the patellar tendon, probe and operating instruments medial to the patellar tendon, and an inflow catheter superomedial to the patella. The survey of the joint showed extensive synovitis and the synovium had a lot of white patches within it. There was also yellow brown strands of fibrinous material. Minimal arthroscopic debridement was done of the loose material in the knee and of the synovial lining where the white deposits were, we considered that these are gouty. The patient has had previous steroid injection, so that it can be part of it as well. The knee was irrigated with about 5 or 6 bags of saline, each bag had 3 L. The anterior joint was observed. The patient had complete eburnation of bone, medial femoral condyle, medial tibial plateau, lateral femoral condyle, lateral tibial plateau. The final impression was gout left knee. When I aspirated his knee the other day, it also had blood, so bleeding into the knee from Coumadin therapy and degenerative arthritis is possible as well and then the cultures will be pending. The cultures of last week and of have had no growth thus far. After the irrigation, the knee was emptied , then instilled with Marcaine 0.25% 30 mL and the skin portals closed with interrupted Prolene sutures and a dressing applied after washing and drying of Betadine-soaked release, sterile gauze, sterile Webril, cryotherapy cuff, ABD pads, and a 6-inch Dejan bandage. The patient had marked atrophy of his left thigh diffusely and severe arthritis of the left knee. He was hoping to have a knee replacement in the coming months and this consideration will be discussed carefully with him at this stage. The postoperative plan is to get him walking with a walker and Dr. Guadalupe has done a rheumatology consultation and suggested that he can have some colchicine for antiinflammatory use and we will consider starting that as well. He will be followed up in my office and he can go home from the hospital once he is ambulatory with a walker. [id number] #: [id number] MTDD
--- NOTE | 2019-06-13 17:35 | PN ---
Medicine Progress Note - Date of Service Date of Service: 06/13/19 - Chief Complaint: gout - Subjective Subjective: Overall patient feels that his joints are improved; he had a debridement of the knee and operative report was reviewed. However he is concerned that his gout will flare again once he has tapered off of steroids He is interested in having prophylactic therapy to prevent gout attacks - Objective Objective: Vital Signs 06/12/19 06/12/19 06/12/19 17:35 18:18 18:32 Temperature 97.8 F 97.9 F Pulse Rate 85 82 Respiratory 18 18 18 Rate Blood Pressure 132/55 129/61 (mmHg) O2 Sat by Pulse 98 100 Oximetry 06/12/19 06/12/19 06/12/19 19:21 20:00 20:48 Temperature 97 F Pulse Rate 82 Respiratory 18 16 16 Rate Blood Pressure 132/49 (mmHg) O2 Sat by Pulse 97 Oximetry 06/12/19 06/12/19 06/12/19 21:38 21:48 23:16 Temperature 97.4 F 97.2 F Pulse Rate 79 80 Respiratory 16 16 18 Rate Blood Pressure 124/56 122/55 (mmHg) O2 Sat by Pulse 97 97 Oximetry 06/13/19 06/13/19 06/13/19 00:00 00:36 02:43 Temperature 97.7 F Pulse Rate 81 Respiratory 16 16 Rate Blood Pressure 133/52 (mmHg) O2 Sat by Pulse 97 94 Oximetry 06/13/19 06/13/19 06/13/19 03:15 05:40 07:06 Temperature 98.3 F Pulse Rate 67 Respiratory 16 16 14 Rate Blood Pressure 121/48 (mmHg) O2 Sat by Pulse 95 Oximetry 06/13/19 06/13/19 06/13/19 08:00 10:49 11:04 Temperature 97.9 F 98.3 F Pulse Rate 73 69 Respiratory 13 12 12 Rate Blood Pressure 126/54 122/44 (mmHg) O2 Sat by Pulse 97 97 97 Oximetry 06/13/19 14:20 Temperature 98.6 F Pulse Rate 72 Respiratory 13 Rate Blood Pressure 127/52 (mmHg) O2 Sat by Pulse 96 Oximetry Current Medications Acetaminophen (Tylenol Tab*) 650 mg PO Q6H PRN PRN Reason: PAIN-MODERATE/TEMP >/= 100.4 Ascorbic Acid (Vitamin C Tab*) 500 mg PO DAILY [facility] Last Admin: 06/13/19 08:36 Dose: 500 mg Aspirin (Aspirin Ec Tab*) 81 mg PO DAILY [facility] Last Admin: 06/13/19 08:35 Dose: 81 mg Calcitriol (Rocaltrol Cap*) 0.25 mcg PO BID [facility] Calcium Carbonate (Calcium Carbonate Liq*) 1,250 mg PO FIVE TIMES DAILY [facility] Last Admin: 06/13/19 14:32 Dose: 1,250 mg Calcium Polycarbophil (Fibercon Tab*) 625 mg PO DAILY WITH MEAL [facility] Last Admin: 06/13/19 08:36 Dose: 625 mg Cetirizine HCl (Zyrtec*) 10 mg PO DAILY [facility] Last Admin: 06/13/19 08:35 Dose: 10 mg Dextrose (D50w Syringe 50 Ml*) 12.5 gm IV PUSH .FOR FS < 60 - SS PRN PRN Reason: FS < 60 Diclofenac Sodium (Voltaren 1% Gel (Nf)) 1 applic TOPICAL BID [facility]; Protocol Last Admin: 06/13/19 08:36 Dose: 1 applic Diphenhydramine HCl (Benadryl Po*) 25 mg PO Q6H PRN PRN Reason: HIVES Febuxostat (Uloric(Nf)) 40 mg PO DAILY [facility] Last Admin: 06/13/19 08:35 Dose: 40 mg Ferrous Sulfate (Ferrous Sulfate Tab*) 325 mg PO DAILY@1000 [facility] Last Admin: 06/13/19 08:35 Dose: 325 mg Finasteride (Proscar Tab*) 5 mg PO QPM [facility] Last Admin: 06/12/19 18:19 Dose: 5 mg Fluticasone Propionate (Flonase Nasal [place] 50mcg*) 2 spray BOTH NARES QPM [facility] Last Admin: 06/12/19 18:19 Dose: Not Given Hyoscyamine (Anaspaz Tab*) 0.125 mg PO TID PRN PRN Reason: SPASMS Last Admin: 06/11/19 15:22 Dose: 0.125 mg Insulin Glargine (Lantus(*)) 6 units SUBCUT Q24H [facility] Last Admin: 06/13/19 08:34 Dose: 6 units Insulin Human Lispro (Humalog*) 0 units SUBCUT Q4HR [facility]; Protocol Last Admin: 06/13/19 12:48 Dose: 1 unit Levothyroxine Sodium (Synthroid Tab*) 50 mcg PO EVERY OTHER DAY@0600 [facility] Last Admin: 06/12/19 05:49 Dose: 50 mcg Levothyroxine Sodium (Synthroid Tab*) 75 mcg PO EVERY OTHER DAY@0600 [facility] Last Admin: 06/13/19 05:39 Dose: 75 mcg Mirabegron (Myrbetriq (Nf)) 25 mg PO DAILY [facility] Last Admin: 06/13/19 11:21 Dose: Not Given Multivitamins/Minerals (Theragran/Minerals Tab*) 1 tab PO DAILY [facility] Last Admin: 06/13/19 08:35 Dose: 1 tab Pto: Mirabegron 50mg (Er Tablet) 1 dose PO DAILY [facility] Last Admin: 06/13/19 08:33 Dose: 1 dose Ondansetron HCl (Zofran Inj*) 4 mg IV Q4H PRN PRN Reason: NAUSEA/VOMITING Oxycodone/Acetaminophen (Percocet 5/325 Tab*) 1 tab PO Q6H PRN PRN Reason: PAIN - MODERATE Last Admin: 06/13/19 03:15 Dose: 1 tab Pravastatin Sodium (Pravachol (Nf)) 10 mg PO QPM [facility] Last Admin: 06/12/19 18:18 Dose: 10 mg Prednisone (Deltasone 20 Mg Tab) 20 mg PO DAILY [facility] Last Admin: 06/13/19 08:35 Dose: 20 mg Sitagliptin Phosphate (Januvia (Nf)) 25 mg PO DAILY [facility]; Protocol Last Admin: 06/13/19 08:35 Dose: 25 mg Tamsulosin HCl (Flomax Cap*) 0.4 mg PO QPM [facility] Last Admin: 06/12/19 18:19 Dose: 0.4 mg Tramadol HCl (Ultram*) 50 mg PO Q12H PRN PRN Reason: PAIN - MODERATE Last Admin: 06/12/19 21:48 Dose: 50 mg Warfarin Sodium (Coumadin Tab(*)) 2 mg PO DAILY@1700 [facility]; Protocol Last Admin: 06/12/19 18:19 Dose: 2 mg Intake & Output 06/11/19 06/12/19 06/13/19 06/14/19 06:59 06:59 06:59 06:59 Intake Total 1575 2082 3529 1725 Output Total 100 1520 1155 300 Balance 8447 149 2504 1425 Weight 116 lb 9.6 oz Intake: IV Fluids 1575 1022 2109 970 LR 500 NS (0.9%) 20 meq KCL 1022 1609 940 Normal saline 1575 30 Oral 0 1060 1420 755 Output: Urine 100 1520 1155 300 Other: Estimated Void Large # Bowel Movements 0 1 1 Estimated Stool Amount Small Medium Estimated Blood Loss minimal Comment # Voids 2 ADLs: Meal Record Start: 06/10/19 23: 34 Freq: DAILY@0900,1400,1800 Status: Active Protocol: Created 06/10/19 23:34 System (Rec: 06/10/19 23:34 System MED-C05) Document 06/11/19 09:00 [id number] (Rec: 06/11/19 09:14 [id number] MED-M11) Document 06/11/19 12:52 [id number] (Rec: 06/11/19 12:52 [id number] MED-M11) Document 06/11/19 18:00 [id number] (Rec: 06/11/19 18:10 [id number] MED-C04) Document 06/12/19 09:00 [id number] (Rec: 06/12/19 13:30 [id number] MED-C09) Document 06/12/19 13:30 [id number] (Rec: 06/12/19 13:30 [id number] MED-C09) Document 06/12/19 18:00 [id number] (Rec: 06/12/19 18:38 [id number] MED-C09) Document 06/13/19 09:00 [id number] (Rec: 06/13/19 10:20 [id number] MED-C11) Document 06/13/19 14:00 [id number] (Rec: 06/13/19 16:11 [id number] MED-C11) Intake and Output Start: 06/10/19 17: 03 Freq: Status: Active Protocol: Created 06/10/19 17:03 System (Rec: 06/10/19 17:03 System ED-M01) Document 06/11/19 07:31 [id number] (Rec: 06/11/19 07:31 [id number] MED-M11) Intake and Output Start: 06/10/19 23: 34 Freq: DAILY@0600,1400,2200 Status: Active Protocol: Created 06/10/19 23:34 System (Rec: 06/10/19 23:34 System MED-C05) Document 06/11/19 05:29 [id number] (Rec: 06/11/19 05:30 [id number] MED-C09) Document 06/11/19 12:08 [id number] (Rec: 06/11/19 12:08 [id number] MED-C16) Document 06/11/19 12:53 [id number] (Rec: 06/11/19 12:53 [id number] MED-M11) Document 06/11/19 22:00 [id number] (Rec: 06/11/19 23:32 [id number] MED-C09) Document 06/12/19 06:00 [id number] (Rec: 06/12/19 06:21 [id number] MED-C13) Document 06/12/19 14:00 [id number] (Rec: 06/12/19 14:48 [id number] MED-C09) Document 06/12/19 20:00 [id number] (Rec: 06/12/19 23:00 [id number] MED-C15) Document 06/12/19 21:11 [id number] (Rec: 06/12/19 21:12 [id number] MED-C11) Document 06/13/19 03:02 [id number] (Rec: 06/13/19 03:03 [id number] MED-C15) Document 06/13/19 05:13 [id number] (Rec: 06/13/19 05:15 [id number] MED-C11) Document 06/13/19 14:00 [id number] (Rec: 06/13/19 16:11 [id number] MED-C11) Last Finger Stick Glucose Documented by Nursing: General: no acute distress; pleasant; sitting up Lungs: Clear to auscultation Cardiovascular: No murmurs or rubs Abdomen:Soft Nontender Extremities:Left knee wrapped Neuro:Non focal Musculoskeletal: Improved ROM of the the MTP joints; they are not tender. Knee with varus deformities No tophi - Labs Labs: Laboratory Results - last 24 hr 06/12/19 06/12/19 06/12/19 16:45 18:09 21:28 WBC RBC Hgb Hct MCV MCH MCHC RDW Plt Count MPV Neut % (Auto) Lymph % (Auto) [place] % (Auto) Eos % (Auto) Baso % (Auto) Absolute Neuts (auto) Absolute Lymphs (auto) Absolute Monos (auto) Absolute Eos (auto) Absolute Basos (auto) Absolute Nucleated RBC Nucleated RBC % Sodium Potassium Chloride Carbon Dioxide Anion Gap BUN Creatinine Est GFR ( Amer) Est GFR (Non-Af Amer) BUN/Creatinine Ratio Glucose POC Glucose (mg/dL) 188 H 322 H Calcium Ionized Calcium C-Reactive Protein 25-OH Vitamin D Total PTH Intact Calcium (PTH Intact) Fluid Crystals Monosodium urate A Fluid Crystal Interp Blood Type Antibody Screen Crossmatch 06/13/19 06/13/19 06/13/19 02:16 04:41 04:41 WBC 12.0 H RBC 2.06 L Hgb 6.6 L Hct 19 L MCV 93 MCH 32 H MCHC 35 RDW 17 H Plt Count 303 MPV 7.2 L Neut % (Auto) 92.3 Lymph % (Auto) 2.0 [place] % (Auto) 5.6 Eos % (Auto) 0.0 Baso % (Auto) 0.1 Absolute Neuts (auto) 11.0 H Absolute Lymphs (auto) 0.2 L Absolute Monos (auto) 0.7 Absolute Eos (auto) 0.0 Absolute Basos (auto) 0.0 Absolute Nucleated RBC 0.0 Nucleated RBC % 0.0 Sodium 135 Potassium 5.1 H Chloride 109 Carbon Dioxide 18 L Anion Gap 8 BUN 69 H Creatinine 1.98 H Est GFR ( Amer) 40.3 Est GFR (Non-Af Amer) 33.3 BUN/Creatinine Ratio 34.8 H Glucose 190 H POC Glucose (mg/dL) 204 H Calcium 6.3 L* Ionized Calcium C-Reactive Protein 177.60 H 25-OH Vitamin D Total 29.7 PTH Intact Calcium (PTH Intact) Fluid Crystals Fluid Crystal Interp Blood Type Antibody Screen Crossmatch 06/13/19 06/13/19 06/13/19 04:41 07:14 08:04 WBC RBC Hgb Hct MCV MCH MCHC RDW Plt Count MPV Neut % (Auto) Lymph % (Auto) [place] % (Auto) Eos % (Auto) Baso % (Auto) Absolute Neuts (auto) Absolute Lymphs (auto) Absolute Monos (auto) Absolute Eos (auto) Absolute Basos (auto) Absolute Nucleated RBC Nucleated RBC % Sodium Potassium Chloride Carbon Dioxide Anion Gap BUN Creatinine Est GFR ( Amer) Est GFR (Non-Af Amer) BUN/Creatinine Ratio Glucose POC Glucose (mg/dL) 178 H Calcium Ionized Calcium 0.86 L C-Reactive Protein 25-OH Vitamin D Total PTH Intact 26.4 Calcium (PTH Intact) 6.1 L* Fluid Crystals Fluid Crystal Interp Blood Type Antibody Screen Crossmatch 06/13/19 06/13/19 06/13/19 08:04 11:51 15:32 WBC RBC Hgb Hct MCV MCH MCHC RDW Plt Count MPV Neut % (Auto) Lymph % (Auto) [place] % (Auto) Eos % (Auto) Baso % (Auto) Absolute Neuts (auto) Absolute Lymphs (auto) Absolute Monos (auto) Absolute Eos (auto) Absolute Basos (auto) Absolute Nucleated RBC Nucleated RBC % Sodium Potassium Chloride Carbon Dioxide Anion Gap BUN Creatinine Est GFR ( Amer) Est GFR (Non-Af Amer) BUN/Creatinine Ratio Glucose POC Glucose (mg/dL) 179 H Calcium 7.0 L Ionized Calcium C-Reactive Protein 25-OH Vitamin D Total PTH Intact Calcium (PTH Intact) Fluid Crystals Fluid Crystal Interp Blood Type AB Positive Antibody Screen Negative Crossmatch See Detail - Assessment Assessment: BROOK SULTANA JR is a 74 year old M. Patient's diagnosis is SEPSIS LEFT KNEE PAIN GOUT FLARE. Gout End stage knee OA - Plan Plan: Overall improved. Mr Sultana is interested in prophylactic therapy to prevent future gout attacks. He is on Febuxostat which may need to be adjusted once his acute flare resolves Consider overlap with a very low dose Colchicine 0.3 mg every [address] Silva 's note states that it will not be started now. If all in agreement, it could be considered. Alternatively consider tapering Prednisone down over the next week to 5 mg daily and continuing a low dose of Prednisone for a few weeks until gout flare completely resolves; however there is a concern for hyperglycemia with chronic steroid usage, even at a low dose, so low dose Colchicine with close monitoring for side effects of myopathy given his renal insufficiency, may be preferable. For his present flare of gout, it is resolving, so his Prednisone could be gradually tapered. Agree with gentle PT/ ROM exercises and tentative plan for knee replacement in a few months per Dr. Ricardo's note Would be happy to follow up with him. He will need a repeat uric acid checked in 1 -2 weeks
[2019-06-13] MEDS: Fluticasone NASAL SPRAY 50MCG* 16 gm SPRAY BTL BOTH NARES SCH ×2 (19:04→19:11)
[2019-06-13] MEDS: Warfarin TAB(*) 2 MG PO SCH (19:04)
[2019-06-13] MEDS: Finasteride TAB* 5 MG PO SCH (19:04)
[2019-06-13] MEDS: Tamsulosin CAP* 0.4 MG PO SCH (19:04)
[2019-06-13] MEDS: Calcitriol CAP* 0.25 MCG PO SCH (19:05)
[2019-06-13] MEDS: PRAVASTATIN 10 MG PO SCH (19:17)
[2019-06-14] MEDS: Calcium Carbonate LIQ* 1,250 MG/5 ML UDC PO SCH ×5 (05:25→22:05)
[2019-06-14] MEDS: Levothyroxine TAB* 50 MCG TAB PO SCH (05:25)
[2019-06-14 06:31] LABS: ABS Lymphocytes 0.4 10^3/ul (1.0-4.8); ABS Monocytes 1.1 10^3/ul (0-0.8); ABS Neutrophils 9.7 10^3/ul (1.5-7.7); Hematocrit 30 % (42-52); Lymphocyte % 3.9 %; Mean Corpuscular HGB Conc 34 g/dL (31-36); Mean Corpuscular Hemoglobin 30 pg (27-31); Mean Corpuscular Volume 90 fL (80-94); Mean Platelet Volume 7.3 fL (7.4-10.4); Platelet Count 348 10^3/uL (150-450); Red Blood Count 3.33 10^6 /uL (4.18-5.48); Red Cell Distribution Width 17 % (10-15); White Blood Count 11.2 10^3/uL (3.5-10.8)
[2019-06-14 06:37] LABS: INR 4.17 (0.82-1.09)
[2019-06-14 06:43] LABS: Calcium 7.8 mg/dL (8.6-10.3); Potassium 4.8 mmol/L (3.5-5.0)
[2019-06-14 06:49] LABS: BUN/Creatinine Ratio 34.1 (8-20); C Reactive Protein 135.26 mg/L (<8.01); EGFR Non-African American 39.7 (>60)
[2019-06-14] MEDS: Aspirin EC TAB* 81 MG TAB.EC PO SCH (08:11)
[2019-06-14] MEDS: MIRABEGRON 50 MG PO SCH (08:11)
[2019-06-14] MEDS: Calcitriol CAP* 0.25 MCG PO SCH ×2 (08:11→22:02)
[2019-06-14] MEDS: Cetirizine* 10 MG TAB PO SCH (08:12)
[2019-06-14] MEDS: CMCS:SitaGLIPtin (NF) 25 MG TAB PO SCH (08:12)
[2019-06-14] MEDS: FEBUXOSTAT 40 MG PO SCH (08:12)
[2019-06-14] MEDS: Ascorbic Acid TAB* 500 MG PO SCH (08:12)
[2019-06-14] MEDS: Calcium Polycarbophil TAB* 625 MG PO SCH (08:12)
[2019-06-14] MEDS: PTO: Mirabegron (NF) 25 MG TAB PO SCH (08:13)
[2019-06-14] MEDS: Ferrous Sulfate TAB* 325 MG PO SCH (08:13)
[2019-06-14] MEDS: Multivitamins/Minerals TAB PO SCH (08:13)
--- NOTE | 2019-06-14 08:14 | PN ---
Subjective - Subjective Reason for Note: Progress Note History: Scott Sultana had no problem with the blood transfusion. He notices now that he has a flare of gout in his left great toe again. His knee is not causing much pain and his right great toe is fine. He has not yet had a bowel movement. He has no symptoms of hypocalcemia. He has no cardiovascular, respiratory, symptoms. Current Medications: Current Medications Acetaminophen (Tylenol Tab*) 650 mg PO Q6H PRN PRN Reason: PAIN-MODERATE/TEMP >/= 100.4 Ascorbic Acid (Vitamin C Tab*) 500 mg PO DAILY [facility] Last Admin: 06/13/19 08:36 Dose: 500 mg Aspirin (Aspirin Ec Tab*) 81 mg PO DAILY [facility] Last Admin: 06/13/19 08:35 Dose: 81 mg Calcitriol (Rocaltrol Cap*) 0.25 mcg PO BID [facility] Last Admin: 06/13/19 19:05 Dose: 0.25 mcg Calcium Carbonate (Calcium Carbonate Liq*) 1,250 mg PO FIVE TIMES DAILY [facility] Last Admin: 06/14/19 05:25 Dose: 1,250 mg Calcium Polycarbophil (Fibercon Tab*) 625 mg PO DAILY WITH MEAL [facility] Last Admin: 06/13/19 08:36 Dose: 625 mg Cetirizine HCl (Zyrtec*) 10 mg PO DAILY [facility] Last Admin: 06/13/19 08:35 Dose: 10 mg Dextrose (D50w Syringe 50 Ml*) 12.5 gm IV PUSH .FOR FS < 60 - SS PRN PRN Reason: FS < 60 Diclofenac Sodium (Voltaren 1% Gel (Nf)) 1 applic TOPICAL BID [facility]; Protocol Last Admin: 06/13/19 19:14 Dose: Not Given Diphenhydramine HCl (Benadryl Po*) 25 mg PO Q6H PRN PRN Reason: HIVES Febuxostat (Uloric(Nf)) 40 mg PO DAILY [facility] Last Admin: 06/13/19 08:35 Dose: 40 mg Ferrous Sulfate (Ferrous Sulfate Tab*) 325 mg PO DAILY@1000 [facility] Last Admin: 06/13/19 08:35 Dose: 325 mg Finasteride (Proscar Tab*) 5 mg PO QPM [facility] Last Admin: 06/13/19 19:04 Dose: 5 mg Fluticasone Propionate (Flonase Nasal [place] 50mcg*) 2 spray BOTH NARES QPM [facility] Last Admin: 06/13/19 19:11 Dose: Not Given Hyoscyamine (Anaspaz Tab*) 0.125 mg PO TID PRN PRN Reason: SPASMS Last Admin: 06/11/19 15:22 Dose: 0.125 mg Insulin Glargine (Lantus(*)) 6 units SUBCUT Q24H [facility] Last Admin: 06/13/19 08:34 Dose: 6 units Insulin Human Lispro (Humalog*) 0 units SUBCUT ACHS [facility]; Protocol Last Admin: 06/13/19 21:27 Dose: 1 unit Levothyroxine Sodium (Synthroid Tab*) 50 mcg PO EVERY OTHER DAY@0600 [facility] Last Admin: 06/14/19 05:25 Dose: 50 mcg Levothyroxine Sodium (Synthroid Tab*) 75 mcg PO EVERY OTHER DAY@0600 [facility] Last Admin: 06/13/19 05:39 Dose: 75 mcg Mirabegron (Myrbetriq (Nf)) 25 mg PO DAILY [facility] Last Admin: 06/13/19 11:21 Dose: Not Given Multivitamins/Minerals (Theragran/Minerals Tab*) 1 tab PO DAILY [facility] Last Admin: 06/13/19 08:35 Dose: 1 tab Pto: Mirabegron 50mg (Er Tablet) 1 dose PO DAILY [facility] Last Admin: 06/13/19 08:33 Dose: 1 dose Ondansetron HCl (Zofran Inj*) 4 mg IV Q4H PRN PRN Reason: NAUSEA/VOMITING Oxycodone/Acetaminophen (Percocet 5/325 Tab*) 1 tab PO Q6H PRN PRN Reason: PAIN - MODERATE Last Admin: 06/13/19 03:15 Dose: 1 tab Pravastatin Sodium (Pravachol (Nf)) 10 mg PO QPM [facility] Last Admin: 06/13/19 19:17 Dose: 10 mg Prednisone (Deltasone 20 Mg Tab) 20 mg PO DAILY [facility] Last Admin: 06/13/19 08:35 Dose: 20 mg Sitagliptin Phosphate (Januvia (Nf)) 25 mg PO DAILY [facility]; Protocol Last Admin: 06/13/19 08:35 Dose: 25 mg Tamsulosin HCl (Flomax Cap*) 0.4 mg PO QPM [facility] Last Admin: 06/13/19 19:04 Dose: 0.4 mg Tramadol HCl (Ultram*) 50 mg PO Q12H PRN PRN Reason: PAIN - MODERATE Last Admin: 06/12/19 21:48 Dose: 50 mg Warfarin Sodium (Coumadin Tab(*)) 2 mg PO DAILY@1700 [facility]; Protocol Last Admin: 06/13/19 19:04 Dose: 2 mg Home Medications: Home Medications Medication Instructions Recorded Confirmed Type Finasteride TAB* [Proscar TAB*] 5 mg PO QPM 09/03/14 06/10/19 History SitaGLIPtin (NF) [Januvia (NF)] 25 mg PO DAILY 09/03/14 06/10/19 History Fluticasone NASAL SPRAY 50MCG* 2 spray BOTH NARES QPM 12/04/15 06/10/19 History [Flonase NASAL SPRAY 50MCG*] Pravastatin (NF) [Pravachol (NF)] 10 mg PO QPM 12/04/15 06/10/19 History Tamsulosin CAP* [Flomax CAP*] 0.4 mg PO QPM 12/04/15 06/10/19 History Levothyroxine TAB* [Synthroid 75 75 mcg PO EVERY OTHER DAY 02/23/17 06/10/19 History MCG TAB*] amLODIPine TAB* [Norvasc 5 mg TAB*] 5 mg PO BID 02/23/17 06/10/19 History Calcium Polycarbophil TAB* 625 mg PO DAILY 08/30/18 06/10/19 History [Fibercon TAB*] Chlorthalidone TAB* [Hygroton TAB*] 12.5 mg PO DAILY 08/30/18 06/10/19 History Hyoscyamine TAB* [Anaspaz 0.125 MG 0.125 mg PO TID PRN 08/30/18 06/10/19 History TAB*] Acetaminophen TAB* [Tylenol TAB*] 650 mg PO Q6H PRN 06/10/19 06/10/19 History Ascorbic Acid TAB* [Vitamin C 500 mg PO DAILY 06/10/19 06/10/19 History TAB*] Aspirin EC TAB* [Ecotrin EC Low 81 mg PO DAILY 06/10/19 06/10/19 History Dose 81 MG*] Cetirizine* [ZyrTEC 10 MG TAB*] 10 mg PO DAILY 06/10/19 06/10/19 History Cinacalcet TAB* [Sensipar TAB*] 30 mg PO DAILY 06/10/19 06/10/19 History Diclofenac 1% GEL (NF) [Voltaren 1 applic TOPICAL BID 06/10/19 06/10/19 History 1% GEL (NF)] Febuxostat(NF) [Uloric(NF)] 40 mg PO DAILY 06/10/19 06/10/19 History Ferrous Sulfate TAB* 325 mg PO DAILY 06/10/19 06/10/19 History Levothyroxine TAB* [Synthroid TAB*] 50 mcg PO EVERY OTHER DAY 06/10/19 06/10/19 History Losartan TAB* [Cozaar TAB*] 50 mg PO DAILY 06/10/19 06/10/19 History Multivitamins/Minerals TAB* 1 tab PO DAILY 06/10/19 06/10/19 History [Theragran/minerals TAB*] Warfarin TAB(*) [Coumadin TAB(*)] 2 mg PO DAILY 06/10/19 06/10/19 History oxyCODONE/Acetamin 5/325 MG* 1 tab PO Q6H PRN 06/10/19 06/10/19 History [Percocet 5/325 TAB*] traMADol TAB* [Ultram*] 50 mg PO Q6HR PRN 06/10/19 06/10/19 History Mirabegron (NF) [Myrbetriq (NF)] 50 mg PO DAILY 06/11/19 06/11/19 History Allergies: Allergies Allergy/AdvReac Type Severity Reaction Status Date / Time No Known Allergies Allergy Verified 06/10/19 17:03 Objective - Vital Signs Vital Signs: Vital Signs 06/13/19 06/13/19 06/13/19 10:49 11:04 14:20 Temperature 97.9 F 98.3 F 98.6 F Pulse Rate 73 69 72 Respiratory 12 12 13 Rate Blood Pressure 126/54 122/44 127/52 (mmHg) O2 Sat by Pulse 97 97 96 Oximetry 06/13/19 06/13/19 06/13/19 16:00 16:40 19:15 Temperature 98.4 F 98.6 F Pulse Rate 76 72 Respiratory 18 20 Rate Blood Pressure 148/56 134/58 (mmHg) O2 Sat by Pulse 97 97 97 Oximetry 06/13/19 06/13/19 06/13/19 20:00 23:33 23:53 Temperature 97.7 F Pulse Rate 70 Respiratory 18 16 Rate Blood Pressure 136/55 (mmHg) O2 Sat by Pulse 97 97 Oximetry 06/14/19 03:22 Temperature 98.2 F Pulse Rate 83 Respiratory 18 Rate Blood Pressure 147/65 (mmHg) O2 Sat by Pulse 97 Oximetry - Intake and Output Intake and Output: Intake & Output 06/11/19 06/12/19 06/13/19 06/14/19 11:59 11:59 11:59 11:59 Intake Total 1575 2082 3884 1740 Output Total 920 7163 026 1878 Balance 655 1002 3109 440 Weight 116 lb 9.6 oz Intake: IV Fluids 1575 1022 2109 970 LR 500 NS (0.9%) 20 meq KCL 1022 1609 940 Normal saline 1575 30 IVPB 250 calcium gluconate 250 Oral 0 1060 1775 520 Output: Urine 920 9767 473 9839 Other: Estimated Void Large # Bowel Movements 0 1 1 0 Estimated Stool Amount Small Medium Small Estimated Blood Loss minimal Comment # Voids 2 ADLs: Meal Record Start: 06/10/19 23: 34 Freq: DAILY@0900,1400,1800 Status: Active Protocol: Created 06/10/19 23:34 System (Rec: 06/10/19 23:34 System MED-C05) Document 06/11/19 09:00 [id number] (Rec: 06/11/19 09:14 [id number] MED-M11) Document 06/11/19 12:52 [id number] (Rec: 06/11/19 12:52 [id number] MED-M11) Document 06/11/19 18:00 [id number] (Rec: 06/11/19 18:10 [id number] MED-C04) Document 06/12/19 09:00 [id number] (Rec: 06/12/19 13:30 [id number] MED-C09) Document 06/12/19 13:30 [id number] (Rec: 06/12/19 13:30 [id number] MED-C09) Document 06/12/19 18:00 [id number] (Rec: 06/12/19 18:38 [id number] MED-C09) Document 06/13/19 09:00 [id number] (Rec: 06/13/19 10:20 [id number] MED-C11) Document 06/13/19 14:00 [id number] (Rec: 06/13/19 16:11 [id number] MED-C11) Document 06/13/19 18:00 [id number] (Rec: 06/13/19 18:26 [id number] MED-C11) Intake and Output Start: 06/10/19 17: 03 Freq: Status: Active Protocol: Created 06/10/19 17:03 System (Rec: 06/10/19 17:03 System ED-M01) Document 06/11/19 07:31 [id number] (Rec: 06/11/19 07:31 [id number] MED-M11) Intake and Output Start: 06/10/19 23: 34 Freq: DAILY@0600,1400,2200 Status: Active Protocol: Created 06/10/19 23:34 System (Rec: 06/10/19 23:34 System MED-C05) Document 06/11/19 05:29 [id number] (Rec: 06/11/19 05:30 [id number] MED-C09) Document 06/11/19 12:08 [id number] (Rec: 06/11/19 12:08 [id number] MED-C16) Document 06/11/19 12:53 [id number] (Rec: 06/11/19 12:53 [id number] MED-M11) Document 06/11/19 22:00 [id number] (Rec: 06/11/19 23:32 [id number] MED-C09) Document 06/12/19 06:00 [id number] (Rec: 06/12/19 06:21 [id number] MED-C13) Document 06/12/19 14:00 [id number] (Rec: 06/12/19 14:48 [id number] MED-C09) Document 06/12/19 20:00 [id number] (Rec: 06/12/19 23:00 [id number] MED-C15) Document 06/12/19 21:11 [id number] (Rec: 06/12/19 21:12 [id number] MED-C11) Document 06/13/19 03:02 [id number] (Rec: 06/13/19 03:03 [id number] MED-C15) Document 06/13/19 05:13 [id number] (Rec: 06/13/19 05:15 [id number] MED-C11) Document 06/13/19 14:00 [id number] (Rec: 06/13/19 16:11 [id number] MED-C11) Document 06/13/19 22:00 [id number] (Rec: 06/13/19 22:19 [id number] MED-C05) Document 06/14/19 05:38 [id number] (Rec: 06/14/19 05:39 [id number] MED-C11) - Physical Exam General Physical Exam Comment: Tremulous. Warm and well perfused. He is hemodynamically stable. Left great toe warm, but not red or swollen, right great toe normal. Bandage over left knee General: No Cyanosis, No Anemia, No Jaundice, No Clubbing Lungs and Chest: Yes: Chest Expansion Full, Chest Expansion Symetrica, Percussion Note Resonant, Vessicular Breath Sounds. No: Crackles, Wheezes, Respiratory Distress, Use of Accessory Muscles Heart Rate and Rhythm: Regular Additional Cardiovascular: No: Normal Heart Sounds - mechanical valve, Heart Murmur, Pedal Edema Abdominal Exam: Yes: Soft, Bowel Sounds Present. No: Distention, Abdominal Tenderness Results - Results Lab Results: Laboratory Results - last 24 hr 06/12/19 06/13/19 06/13/19 16:45 04:41 04:41 WBC RBC Hgb Hct MCV MCH MCHC RDW Plt Count MPV Neut % (Auto) Lymph % (Auto) [place] % (Auto) Eos % (Auto) Baso % (Auto) Absolute Neuts (auto) Absolute Lymphs (auto) Absolute Monos (auto) Absolute Eos (auto) Absolute Basos (auto) Absolute Nucleated RBC Nucleated RBC % INR (Anticoag Therapy) Sodium 135 Potassium 5.1 H Chloride 109 Carbon Dioxide 18 L Anion Gap 8 BUN 69 H Creatinine 1.98 H Est GFR ( Amer) 40.3 Est GFR (Non-Af Amer) 33.3 BUN/Creatinine Ratio 34.8 H Glucose 190 H POC Glucose (mg/dL) Calcium 6.3 L* Ionized Calcium C-Reactive Protein 177.60 H 25-OH Vitamin D Total 29.7 PTH Intact 26.4 Calcium (PTH Intact) 6.1 L* Fluid Crystal Interp Blood Type Antibody Screen Crossmatch 01/30/20 01/30/20 01/30/20 08:04 08:04 11:51 WBC RBC Hgb Hct MCV MCH MCHC RDW Plt Count MPV Neut % (Auto) Lymph % (Auto) [place] % (Auto) Eos % (Auto) Baso % (Auto) Absolute Neuts (auto) Absolute Lymphs (auto) Absolute Monos (auto) Absolute Eos (auto) Absolute Basos (auto) Absolute Nucleated RBC Nucleated RBC % INR (Anticoag Therapy) Sodium Potassium Chloride Carbon Dioxide Anion Gap BUN Creatinine Est GFR ( Amer) Est GFR (Non-Af Amer) BUN/Creatinine Ratio Glucose POC Glucose (mg/dL) 179 H Calcium Ionized Calcium 0.86 L C-Reactive Protein 25-OH Vitamin D Total PTH Intact Calcium (PTH Intact) Fluid Crystal Inter Blood Type AB Positive Antibody Screen Negative Crossmatch See Detail 06/13/19 06/13/19 06/13/19 15:32 17:52 18:56 WBC RBC Hgb Hct MCV MCH MCHC RDW Plt Count MPV Neut % (Auto) Lymph % (Auto) [place] % (Auto) Eos % (Auto) Baso % (Auto) Absolute Neuts (auto) Absolute Lymphs (auto) Absolute Monos (auto) Absolute Eos (auto) Absolute Basos (auto) Absolute Nucleated RBC Nucleated RBC % INR (Anticoag Therapy) Sodium Potassium Chloride Carbon Dioxide Anion Gap BUN Creatinine Est GFR ( Amer) Est GFR (Non-Af Amer) BUN/Creatinine Ratio Glucose POC Glucose (mg/dL) 302 H 316 H Calcium 7.0 L Ionized Calcium C-Reactive Protein 25-OH Vitamin D Total PTH Intact Calcium (PTH Intact) Fluid Crystal Inter Blood Type Antibody Screen Crossmatch 06/13/19 06/14/19 06/14/19 21:22 06:07 06:07 WBC 11.2 H RBC 3.33 L Hgb 10.0 L Hct 30 L MCV 90 MCH 30 MCHC 34 RDW 17 H Plt Count 348 MPV 7.3 L Neut % (Auto) 86.3 Lymph % (Auto) 3.9 [place] % (Auto) 9.6 Eos % (Auto) 0.0 Baso % (Auto) 0.2 Absolute Neuts (auto) 9.7 H Absolute Lymphs (auto) 0.4 L Absolute Monos (auto) 1.1 H Absolute Eos (auto) 0.0 Absolute Basos (auto) 0.0 Absolute Nucleated RBC 0.0 Nucleated RBC % 0.0 INR (Anticoag Therapy) Sodium 138 Potassium 4.8 Chloride 110 Carbon Dioxide 21 L Anion Gap 7 BUN 58 H Creatinine 1.70 H Est GFR ( Amer) 48.0 Est GFR (Non-Af Amer) 39.7 BUN/Creatinine Ratio 34.1 H Glucose 124 H POC Glucose (mg/dL) 189 H Calcium 7.8 L Ionized Calcium C-Reactive Protein 135.26 H 25-OH Vitamin D Total PTH Intact Calcium (PTH Intact) Fluid Crystal Interp Blood Type Antibody Screen Crossmatch 06/14/19 06:07 WBC RBC Hgb Hct MCV MCH MCHC RDW Plt Count MPV Neut % (Auto) Lymph % (Auto) [place] % (Auto) Eos % (Auto) Baso % (Auto) Absolute Neuts (auto) Absolute Lymphs (auto) Absolute Monos (auto) Absolute Eos (auto) Absolute Basos (auto) Absolute Nucleated RBC Nucleated RBC % INR (Anticoag Therapy) 4.17 H Sodium Potassium Chloride Carbon Dioxide Anion Gap BUN Creatinine Est GFR ( Amer) Est GFR (Non-Af Amer) BUN/Creatinine Ratio Glucose POC Glucose (mg/dL) Calcium Ionized Calcium C-Reactive Protein 25-OH Vitamin D Total PTH Intact Calcium (PTH Intact) Fluid Crystal Interp Blood Type Antibody Screen Crossmatch Assessment - Problem List Assessment: Patient Problems Acute gout (Acute) Acute renal failure (Acute) Anemia (Acute) H/O arthroscopy of left knee (Acute) Hypocalcemia (Acute) Abnormal EKG (Chronic) Diverticulosis (Chronic) Esophageal stricture (Chronic) Generalized anxiety disorder (Chronic) H/O mechanical aortic valve replacement (Chronic) Hyperlipidemia (Chronic) Hypertension (Chronic) Hypothyroidism (Chronic) Long-term (current) use of anticoagulants, INR goal 2.5-3.5 (Chronic) Secondary hyperparathyroidism (Chronic) Stage 3 chronic kidney disease (Chronic) Thoracic aortic aneurysm (Chronic) Type 2 diabetes mellitus without complications (Chronic) Plan: Acute gout (Acute) He has good response to arthroscopy of his left knee. H/O arthroscopy of left knee (Acute) The gout is recurring in his left great toe. I am starting him on low dose colchicine. Comorbities: Acute renal failure (Acute)Stage 3 chronic kidney disease (Chronic) This is improving - both the BUN and Cr are coming down Anemia (Acute) He tolerated the transfusion. He has not had a BM to check for fecal occult blood. Hypocalcemia (Acute) I stopped cinacalcet and he is responding to parenteral, oral calcium and calcitriol Type 2 diabetes mellitus without complications (Chronic) His glucose levels are acceptable Long-term (current) use of anticoagulants, INR goal 2.5-3.5 (Chronic) INR a little lower than 2.5 target Secondary diagnoses: Abnormal EKG (Chronic) Diverticulosis (Chronic) Esophageal stricture (Chronic) Generalized anxiety disorder (Chronic) H/O mechanical aortic valve replacement (Chronic) Hyperlipidemia (Chronic) Hypertension (Chronic) Hypothyroidism (Chronic) Secondary hyperparathyroidism (Chronic) Thoracic aortic aneurysm (Chronic) I spoke with Scott Sultana directly and Samantha Sultana by phone. The agree with the management plan. We will mobilize him today, initiate colchicine, stabilize his calcium and hopefully discharge him tomorrow.
[2019-06-14] MEDS: Insulin LISPRO* 1 UNITS UNIT SUBCUT SCH ×4 (08:28→22:16)
[2019-06-14] MEDS: Colchicine* 0.6 MG TAB PO SCH ×3 (09:52→22:02)
[2019-06-14] MEDS: PTO: Diclofenac 1% GEL (NF) 100 GM TUBE TOPICAL SCH ×2 (10:02→22:06)
[2019-06-14] MEDS: Insulin GLARGINE(*) 1 UNITS UNIT SUBCUT SCH (10:24)
[2019-06-14] MEDS: oxyCODONE/Acetamin 5/325 MG* TAB PO PRN ×2 (12:19→22:02)
--- NOTE | 2019-06-14 15:41 | PN ---
Progress Note - Progress Note Date of Service: 06/14/19 SOAP: Subjective: [Pt was seen sitting at bedside today. The pt is doing well. Pain is well managed. He states that he is having a dull aching in his knee. Denies any numbness, tingling, chest pain or SOB. ] Objective: [General: Pt is alert and oriented x3, NAD MSK, LLE: Dressing is c/d/i/. Dressing is changed today. Incisions are c/d/i. No drainage present. +df/pf, no pain with calf palpation. ] Vital Signs Temp 98.9 F 06/14/19 11:15 Pulse 73 06/14/19 11:15 Resp 16 06/14/19 14:19 BP 150/64 06/14/19 11:15 Pulse Ox 97 06/14/19 11:15 Intake & Output 06/13/19 06/14/19 06/14/19 18:59 06:59 18:59 Intake Total 1845 250 360 Output Total 300 1000 Balance 1545 -750 360 Intake: IV Fluids 970 NS (0.9%) 20 meq KCL 940 Normal saline 30 IVPB 250 calcium gluconate 250 Oral 875 0 360 Output: Urine 300 1000 Other: # Bowel Movements 0 Estimated Stool Amount Small Small Assessment: [S/P arthroascopic I&D left knee] Plan: Dressing changed today Will continue with PT exercises Pain medication as needed Continue to mobilize Possible DC tomorrow.
[2019-06-14] MEDS: Finasteride TAB* 5 MG PO SCH (17:26)
[2019-06-14] MEDS: Tamsulosin CAP* 0.4 MG PO SCH (17:26)
[2019-06-14] MEDS: PRAVASTATIN 10 MG PO SCH (17:27)
[2019-06-14] MEDS: Fluticasone NASAL SPRAY 50MCG* 16 gm SPRAY BTL BOTH NARES SCH (17:27)
[2019-06-14] MEDS: Warfarin TAB(*) 2 MG PO SCH (17:27)
[2019-06-15] MEDS: Colchicine* 0.6 MG TAB PO SCH ×2 (02:38→09:05)
[2019-06-15] MEDS: traMADol TAB* 50 MG PO PRN (02:41)
[2019-06-15] MEDS: Levothyroxine TAB* 75 MCG TAB PO SCH (07:54)
[2019-06-15] MEDS: Calcium Carbonate LIQ* 1,250 MG/5 ML UDC PO SCH ×2 (07:54→09:04)
[2019-06-15 08:01] VITALS: BP 147/64
[2019-06-15] MEDS: Insulin LISPRO* 1 UNITS UNIT SUBCUT SCH (08:06)
[2019-06-15 08:16] LABS: ABS Basophils 0.1 10^3/ul (0-0.2); ABS Eosinophils 0.1 10^3/ul (0-0.6); ABS Lymphocytes 1.1 10^3/ul (1.0-4.8); ABS Monocytes 1.4 10^3/ul (0-0.8); ABS Neutrophils 8.8 10^3/ul (1.5-7.7); Eosinophil % 0.6 %; Hematocrit 33 % (42-52); Lymphocyte % 9.4 %; Mean Corpuscular HGB Conc 33 g/dL (31-36); Mean Corpuscular Hemoglobin 30 pg (27-31); Mean Corpuscular Volume 90 fL (80-94); Mean Platelet Volume 6.7 fL (7.4-10.4); Platelet Count 408 10^3/uL (150-450); Red Blood Count 3.66 10^6 /uL (4.18-5.48); Red Cell Distribution Width 17 % (10-15); White Blood Count 11.5 10^3/uL (3.5-10.8)
[2019-06-15 08:31] LABS: BUN/Creatinine Ratio 32.4 (8-20); C Reactive Protein 94.24 mg/L (<8.01); Calcium 8.5 mg/dL (8.6-10.3); EGFR African American 62.2 (>60); EGFR Non-African American 51.4 (>60); Potassium 4.5 mmol/L (3.5-5.0)
[2019-06-15] MEDS: PTO: Diclofenac 1% GEL (NF) 100 GM TUBE TOPICAL SCH (09:02)
[2019-06-15] MEDS: MIRABEGRON 50 MG PO SCH (09:03)
[2019-06-15] MEDS: Cetirizine* 10 MG TAB PO SCH (09:04)
[2019-06-15] MEDS: CMCS:SitaGLIPtin (NF) 25 MG TAB PO SCH (09:04)
[2019-06-15] MEDS: Calcitriol CAP* 0.25 MCG PO SCH (09:04)
[2019-06-15] MEDS: Aspirin EC TAB* 81 MG TAB.EC PO SCH (09:04)
[2019-06-15] MEDS: Multivitamins/Minerals TAB PO SCH (09:05)
[2019-06-15] MEDS: Ferrous Sulfate TAB* 325 MG PO SCH (09:05)
[2019-06-15] MEDS: Ascorbic Acid TAB* 500 MG PO SCH (09:05)
[2019-06-15] MEDS: FEBUXOSTAT 40 MG PO SCH (09:05)
[2019-06-15] MEDS: Calcium Polycarbophil TAB* 625 MG PO SCH (09:05)
[2019-06-15] MEDS: PTO: Mirabegron (NF) 25 MG TAB PO SCH (09:09)
[2019-06-15 09:14] LABS: HIV 4th Generation Nonreactive (Nonreactive)
--- NOTE | 2019-06-15 09:40 | PN ---
Subjective - Subjective Reason for Note: Discharge Note History: He is much better. He walked yesterday and had PT and OT consults I read. He is going to need outpatient PT and maybe OT. He has had a bowel movement today. His appetite is good. His CVS, Resp, GI and systems are all negative for new symptoms. Current Medications: Current Medications Acetaminophen (Tylenol Tab*) 650 mg PO Q6H PRN PRN Reason: PAIN-MODERATE/TEMP >/= 100.4 Last Admin: 06/14/19 08:27 Dose: 650 mg Ascorbic Acid (Vitamin C Tab*) 500 mg PO DAILY [facility] Last Admin: 06/15/19 09:05 Dose: 500 mg Aspirin (Aspirin Ec Tab*) 81 mg PO DAILY [facility] Last Admin: 06/15/19 09:04 Dose: 81 mg Calcitriol (Rocaltrol Cap*) 0.25 mcg PO BID [facility] Last Admin: 06/15/19 09:04 Dose: 0.25 mcg Calcium Carbonate (Calcium Carbonate Liq*) 1,250 mg PO FIVE TIMES DAILY [facility] Last Admin: 06/15/19 09:04 Dose: 1,250 mg Calcium Polycarbophil (Fibercon Tab*) 625 mg PO DAILY WITH MEAL [facility] Last Admin: 06/15/19 09:05 Dose: 625 mg Cetirizine HCl (Zyrtec*) 10 mg PO DAILY [facility] Last Admin: 06/15/19 09:04 Dose: 10 mg Colchicine (Colcrys*) 0.3 mg PO Q6H [facility] Last Admin: 06/15/19 09:05 Dose: 0.3 mg Dextrose (D50w Syringe 50 Ml*) 12.5 gm IV PUSH .FOR FS < 60 - SS PRN PRN Reason: FS < 60 Diclofenac Sodium (Voltaren 1% Gel (Nf)) 1 applic TOPICAL BID [facility]; Protocol Last Admin: 06/15/19 09:02 Dose: Not Given Diphenhydramine HCl (Benadryl Po*) 25 mg PO Q6H PRN PRN Reason: HIVES Febuxostat (Uloric(Nf)) 40 mg PO DAILY [facility] Last Admin: 06/15/19 09:05 Dose: 40 mg Ferrous Sulfate (Ferrous Sulfate Tab*) 325 mg PO DAILY@1000 [facility] Last Admin: 06/15/19 09:05 Dose: 325 mg Finasteride (Proscar Tab*) 5 mg PO QPM [facility] Last Admin: 06/14/19 17:26 Dose: 5 mg Fluticasone Propionate (Flonase Nasal [place] 50mcg*) 2 spray BOTH NARES QPM [facility] Last Admin: 06/14/19 17:27 Dose: Not Given Hyoscyamine (Anaspaz Tab*) 0.125 mg PO TID PRN PRN Reason: SPASMS Last Admin: 06/11/19 15:22 Dose: 0.125 mg Insulin Glargine (Lantus(*)) 6 units SUBCUT Q24H [facility] Last Admin: 06/14/19 10:24 Dose: 6 units Insulin Human Lispro (Humalog*) 0 units SUBCUT ACHS [facility]; Protocol Last Admin: 06/15/19 08:06 Dose: Not Given Levothyroxine Sodium (Synthroid Tab*) 50 mcg PO EVERY OTHER DAY@0600 [facility] Last Admin: 06/14/19 05:25 Dose: 50 mcg Levothyroxine Sodium (Synthroid Tab*) 75 mcg PO EVERY OTHER DAY@0600 [facility] Last Admin: 06/15/19 07:54 Dose: 75 mcg Mirabegron (Myrbetriq (Nf)) 25 mg PO DAILY [facility] Last Admin: 06/15/19 09:09 Dose: Not Given Multivitamins/Minerals (Theragran/Minerals Tab*) 1 tab PO DAILY [facility] Last Admin: 06/15/19 09:05 Dose: 1 tab Pto: Mirabegron 50mg (Er Tablet) 1 dose PO DAILY [facility] Last Admin: 06/15/19 09:03 Dose: 1 dose Ondansetron HCl (Zofran Inj*) 4 mg IV Q4H PRN PRN Reason: NAUSEA/VOMITING Oxycodone/Acetaminophen (Percocet 5/325 Tab*) 1 tab PO Q6H PRN PRN Reason: PAIN - MODERATE Last Admin: 06/14/19 22:02 Dose: 1 tab Pravastatin Sodium (Pravachol (Nf)) 10 mg PO QPM [facility] Last Admin: 06/14/19 17:27 Dose: 10 mg Prednisone (Deltasone 20 Mg Tab) 20 mg PO DAILY [facility] Last Admin: 06/15/19 09:05 Dose: 20 mg Sitagliptin Phosphate (Januvia (Nf)) 25 mg PO DAILY [facility]; Protocol Last Admin: 06/15/19 09:04 Dose: 25 mg Tamsulosin HCl (Flomax Cap*) 0.4 mg PO QPM [facility] Last Admin: 06/14/19 17:26 Dose: 0.4 mg Tramadol HCl (Ultram*) 50 mg PO Q12H PRN PRN Reason: PAIN - MODERATE Last Admin: 06/15/19 02:41 Dose: 50 mg Warfarin Sodium (Coumadin Tab(*)) 2 mg PO DAILY@1700 [facility]; Protocol Last Admin: 06/14/19 17:27 Dose: Not Given Home Medications: Home Medications Medication Instructions Recorded Confirmed Type Finasteride TAB* [Proscar TAB*] 5 mg PO QPM 09/03/14 06/10/19 History SitaGLIPtin (NF) [Januvia (NF)] 25 mg PO DAILY 09/03/14 06/10/19 History Fluticasone NASAL SPRAY 50MCG* 2 spray BOTH NARES QPM 12/04/15 06/10/19 History [Flonase NASAL SPRAY 50MCG*] Pravastatin (NF) [Pravachol (NF)] 10 mg PO QPM 12/04/15 06/10/19 History Tamsulosin CAP* [Flomax CAP*] 0.4 mg PO QPM 12/04/15 06/10/19 History Levothyroxine TAB* [Synthroid 75 75 mcg PO EVERY OTHER DAY 02/23/17 06/10/19 History MCG TAB*] amLODIPine TAB* [Norvasc 5 mg TAB*] 5 mg PO BID 02/23/17 06/10/19 History Calcium Polycarbophil TAB* 625 mg PO DAILY 08/30/18 06/10/19 History [Fibercon TAB*] Chlorthalidone TAB* [Hygroton TAB*] 12.5 mg PO DAILY 08/30/18 06/10/19 History Hyoscyamine TAB* [Anaspaz 0.125 MG 0.125 mg PO TID PRN 08/30/18 06/10/19 History TAB*] Acetaminophen TAB* [Tylenol TAB*] 650 mg PO Q6H PRN 06/10/19 06/10/19 History Ascorbic Acid TAB* [Vitamin C 500 mg PO DAILY 06/10/19 06/10/19 History TAB*] Aspirin EC TAB* [Ecotrin EC Low 81 mg PO DAILY 06/10/19 06/10/19 History Dose 81 MG*] Cetirizine* [ZyrTEC 10 MG TAB*] 10 mg PO DAILY 06/10/19 06/10/19 History Cinacalcet TAB* [Sensipar TAB*] 30 mg PO DAILY 06/10/19 06/10/19 History Diclofenac 1% GEL (NF) [Voltaren 1 applic TOPICAL BID 06/10/19 06/10/19 History 1% GEL (NF)] Febuxostat(NF) [Uloric(NF)] 40 mg PO DAILY 06/10/19 06/10/19 History Ferrous Sulfate TAB* 325 mg PO DAILY 06/10/19 06/10/19 History Levothyroxine TAB* [Synthroid TAB*] 50 mcg PO EVERY OTHER DAY 06/10/19 06/10/19 History Losartan TAB* [Cozaar TAB*] 50 mg PO DAILY 06/10/19 06/10/19 History Multivitamins/Minerals TAB* 1 tab PO DAILY 06/10/19 06/10/19 History [Theragran/minerals TAB*] Warfarin TAB(*) [Coumadin TAB(*)] 2 mg PO DAILY 06/10/19 06/10/19 History oxyCODONE/Acetamin 5/325 MG* 1 tab PO Q6H PRN 06/10/19 06/10/19 History [Percocet 5/325 TAB*] traMADol TAB* [Ultram*] 50 mg PO Q6HR PRN 06/10/19 06/10/19 History Mirabegron (NF) [Myrbetriq (NF)] 50 mg PO DAILY 06/11/19 06/11/19 History Allergies: Allergies Allergy/AdvReac Type Severity Reaction Status Date / Time No Known Allergies Allergy Verified 06/10/19 17:03 Objective - Vital Signs Vital Signs: Vital Signs 06/14/19 06/14/19 06/14/19 11:15 12:19 14:19 Temperature 98.9 F Pulse Rate 73 Respiratory 18 16 16 Rate Blood Pressure 150/64 (mmHg) O2 Sat by Pulse 97 Oximetry 06/14/19 06/14/19 06/14/19 15:58 19:10 20:00 Temperature 98.1 F 98.2 F Pulse Rate 69 69 Respiratory 17 18 16 Rate Blood Pressure 150/60 144/53 (mmHg) O2 Sat by Pulse 99 98 Oximetry 06/14/19 06/14/19 06/15/19 22:02 23:15 02:00 Temperature 98.1 F Pulse Rate 65 Respiratory 16 18 16 Rate Blood Pressure 151/61 (mmHg) O2 Sat by Pulse 98 Oximetry 06/15/19 06/15/19 06/15/19 02:35 02:41 08:00 Temperature 98.1 F 98.0 F Pulse Rate 69 105 Respiratory 18 16 20 Rate Blood Pressure 159/62 147/64 (mmHg) O2 Sat by Pulse 98 98 Oximetry 06/15/19 08:07 Temperature Pulse Rate Respiratory 18 Rate Blood Pressure (mmHg) O2 Sat by Pulse Oximetry - Intake and Output Intake and Output: Intake & Output 06/12/19 06/13/19 06/14/19 06/15/19 11:59 11:59 11:59 11:59 Intake Total 2082 3884 1980 640 Output Total 8427 231 2450 1325 Balance 1002 6318 680 -654 Intake: IV Fluids 1022 2109 970 LR 500 NS (0.9%) 20 meq KCL 1022 1609 940 Normal saline 30 IVPB 250 calcium gluconate 250 Oral 1060 1775 760 640 Output: Urine 8377 439 4200 1325 Other: Estimated Void Large Medium # Bowel Movements 1 1 0 Estimated Stool Amount Small Medium Small Small Estimated Blood Loss minimal Comment # Voids 2 4 ADLs: Meal Record Start: 06/10/19 23: 34 Freq: DAILY@0900,1400,1800 Status: Active Protocol: Created 06/10/19 23:34 System (Rec: 06/10/19 23:34 System MED-C05) Document 06/11/19 09:00 [id number] (Rec: 06/11/19 09:14 [id number] MED-M11) Document 06/11/19 12:52 [id number] (Rec: 06/11/19 12:52 [id number] MED-M11) Document 06/11/19 18:00 [id number] (Rec: 06/11/19 18:10 [id number] MED-C04) Document 06/12/19 09:00 [id number] (Rec: 06/12/19 13:30 [id number] MED-C09) Document 06/12/19 13:30 [id number] (Rec: 06/12/19 13:30 [id number] MED-C09) Document 06/12/19 18:00 [id number] (Rec: 06/12/19 18:38 [id number] MED-C09) Document 06/13/19 09:00 [id number] (Rec: 06/13/19 10:20 [id number] MED-C11) Document 06/13/19 14:00 [id number] (Rec: 06/13/19 16:11 [id number] MED-C11) Document 06/13/19 18:00 [id number] (Rec: 06/13/19 18:26 [id number] MED-C11) Document 06/14/19 09:00 [id number] (Rec: 06/14/19 09:15 [id number] MED-C09) Document 06/14/19 14:00 [id number] (Rec: 06/14/19 15:11 [id number] MED-C11) Document 06/14/19 18:00 [id number] (Rec: 06/14/19 18:39 [id number] MED-C11) Intake and Output Start: 06/10/19 17: 03 Freq: Status: Active Protocol: Created 06/10/19 17:03 System (Rec: 06/10/19 17:03 System ED-M01) Document 06/11/19 07:31 [id number] (Rec: 06/11/19 07:31 [id number] MED-M11) Intake and Output Start: 06/10/19 23: 34 Freq: DAILY@0600,1400,2200 Status: Active Protocol: Created 06/10/19 23:34 System (Rec: 06/10/19 23:34 System MED-C05) Document 06/11/19 05:29 [id number] (Rec: 06/11/19 05:30 [id number] MED-C09) Document 06/11/19 12:08 [id number] (Rec: 06/11/19 12:08 [id number] MED-C16) Document 06/11/19 12:53 [id number] (Rec: 06/11/19 12:53 [id number] MED-M11) Document 06/11/19 22:00 [id number] (Rec: 06/11/19 23:32 [id number] MED-C09) Document 06/12/19 06:00 [id number] (Rec: 06/12/19 06:21 [id number] MED-C13) Document 06/12/19 14:00 [id number] (Rec: 06/12/19 14:48 [id number] MED-C09) Document 06/12/19 20:00 [id number] (Rec: 06/12/19 23:00 [id number] MED-C15) Document 06/12/19 21:11 [id number] (Rec: 06/12/19 21:12 [id number] MED-C11) Document 06/13/19 03:02 [id number] (Rec: 06/13/19 03:03 [id number] MED-C15) Document 06/13/19 05:13 [id number] (Rec: 06/13/19 05:15 [id number] MED-C11) Document 06/13/19 14:00 [id number] (Rec: 06/13/19 16:11 [id number] MED-C11) Document 06/13/19 22:00 [id number] (Rec: 06/13/19 22:19 [id number] MED-C05) Document 06/14/19 05:38 [id number] (Rec: 06/14/19 05:39 [id number] MED-C11) Document 06/14/19 14:00 [id number] (Rec: 06/14/19 15:11 [id number] MED-C11) Document 06/14/19 22:00 [id number] (Rec: 06/14/19 23:39 [id number] MED-C05) Document 06/15/19 06:00 [id number] (Rec: 06/15/19 06:41 [id number] MED-C05) - Physical Exam General Physical Exam Comment: edema of left foot with tight bandaging of left knee. General: No Cyanosis, No Anemia, No Jaundice, No Clubbing Lungs and Chest: Yes: Chest Expansion Full, Chest Expansion Symetrica, Percussion Note Resonant, Vessicular Breath Sounds. No: Crackles, Wheezes Heart Rate and Rhythm: Regular Additional Cardiovascular: Yes: Heart Murmur, Pedal Edema. No: Normal Heart Sounds Abdominal Exam: Yes: Soft, Bowel Sounds Present. No: Distention, Abdominal Tenderness Results - Results Lab Results: Laboratory Results - last 24 hr 06/14/19 06/14/19 06/14/19 12:27 17:19 22:12 WBC RBC Hgb Hct MCV MCH MCHC RDW Plt Count MPV Neut % (Auto) Lymph % (Auto) Sampson % (Auto) Eos % (Auto) Baso % (Auto) Absolute Neuts (auto) Absolute Lymphs (auto) Absolute Monos (auto) Absolute Eos (auto) Absolute Basos (auto) Absolute Nucleated RBC Nucleated RBC % Sodium Potassium Chloride Carbon Dioxide Anion Gap BUN Creatinine Est GFR ( Amer) Est GFR (Non-Af Amer) BUN/Creatinine Ratio Glucose POC Glucose (mg/dL) 178 H 283 H 190 H Calcium C-Reactive Protein HIV 1&2 Ab/P24 Ag 4thGn 06/15/19 06/15/19 06/15/19 08:01 08:01 08:01 WBC 11.5 H RBC 3.66 L Hgb 11.0 L Hct 33 L MCV 90 MCH 30 MCHC 33 RDW 17 H Plt Count 408 MPV 6.7 L Neut % (Auto) 76.6 Lymph % (Auto) 9.4 Sampson % (Auto) 12.6 Eos % (Auto) 0.6 Baso % (Auto) 0.8 Absolute Neuts (auto) 8.8 H Absolute Lymphs (auto) 1.1 Absolute Monos (auto) 1.4 H Absolute Eos (auto) 0.1 Absolute Basos (auto) 0.1 Absolute Nucleated RBC 0.0 Nucleated RBC % 0.0 Sodium 137 Potassium 4.5 Chloride 107 Carbon Dioxide 22 Anion Gap 8 BUN 44 H Creatinine 1.36 H Est GFR ( Amer) 62.2 Est GFR (Non-Af Amer) 51.4 BUN/Creatinine Ratio 32.4 H Glucose 101 H POC Glucose (mg/dL) Calcium 8.5 L C-Reactive Protein 94.24 H HIV 1&2 Ab/P24 Ag 4thGn Nonreactive 06/15/19 08:05 WBC RBC Hgb Hct MCV MCH MCHC RDW Plt Count MPV Neut % (Auto) Lymph % (Auto) Sampson % (Auto) Eos % (Auto) Baso % (Auto) Absolute Neuts (auto) Absolute Lymphs (auto) Absolute Monos (auto) Absolute Eos (auto) Absolute Basos (auto) Absolute Nucleated RBC Nucleated RBC % Sodium Potassium Chloride Carbon Dioxide Anion Gap BUN Creatinine Est GFR ( Amer) Est GFR (Non-Af Amer) BUN/Creatinine Ratio Glucose POC Glucose (mg/dL) 111 H Calcium C-Reactive Protein HIV 1&2 Ab/P24 Ag 4thGn Assessment - Problem List Assessment: Patient Problems Acute gout (Acute) Acute renal failure (Acute) Anemia (Acute) H/O arthroscopy of left knee (Acute) Hypocalcemia (Acute) Abnormal EKG (Chronic) Diverticulosis (Chronic) Esophageal stricture (Chronic) Generalized anxiety disorder (Chronic) H/O mechanical aortic valve replacement (Chronic) Hyperlipidemia (Chronic) Hypertension (Chronic) Hypothyroidism (Chronic) Long-term (current) use of anticoagulants, INR goal 2.5-3.5 (Chronic) Secondary hyperparathyroidism (Chronic) Stage 3 chronic kidney disease (Chronic) Thoracic aortic aneurysm (Chronic) Type 2 diabetes mellitus without complications (Chronic) Plan: See dictated discharge summary. Disposition: home Condition: Fair
[2019-06-15] MEDS: Insulin GLARGINE(*) 1 UNITS UNIT SUBCUT SCH (09:42)
[2019-06-15] MEDS: oxyCODONE/Acetamin 5/325 MG* TAB PO PRN (10:57)
--- NOTE | 2019-06-15 13:55 | DS ---
CC: Dr. Jesus Silva; Dr. Ferdinand Guadalupe DISCHARGE SUMMARY: DATE OF ADMISSION: 06/10/19 DATE OF DISCHARGE: 06/15/19 DISCHARGE DIAGNOSES: 1. Acute severe gout affecting left knee, left and right halluces. 2. Acute inflammatory response. 3. Anemia. 4. Acute renal insufficiency. 5. Hypocalcemia. COMORBIDITIES: Type 2 diabetes mellitus, exacerbated by steroids; mechanical aortic valve replacemen t; chronic anticoagulation. SECONDARY DIAGNOSES: 1. Abnormal EKG with right bundle-branch block. 2. Diverticulosis. 3. Esophageal stricture. 4. Generalized anxiety disorder. 5. Dyslipidemia. 6. Hypertension. 7. Hypothyroidism. 8. Secondary hyperparathyroidism. 9. Stage III chronic renal disease. 10. Thoracic aortic aneurysm. PROCEDURES: 06/13/19 arthroscopy left knee, Dr. Jesus Silva. Transfusion 2 units of packed red cells . DISPOSITION: Home. CONDITION ON DISCHARGE: Fair. HISTORY: Dylan Sultana is a 74-year-old right-handed white male. His presentation is detailed in Dr Anjel Reynaga's admitting history and physical. Scott Sultana has had a history of gout. On 06/03/19, he had a therapeutic injection by Dr. Turcios in his left great toe that was of an NSAID. On 06/06, Dr. Boyle aspirated his left knee. He became unable to walk with severe pain in his left knee and also pain in both toes and presented to the emergency room. He was sent to Dr. Silva who did an other arthrocentesis and tapped off 40 cc of bloody cloudy fluid. He was sent back to the emergency room in view of leukocytosis of 21.4, C-reactive protein of 502, an initial temperature of 99.2 and a heart rate of 96. He was brought into the hospital with an acute inflammatory response. PHYSICAL EXAMINATION IN THE EMERGENCY ROOM: Temperature 99.2 increased to 100.1, pulse 96, respirati ons 16, oxygen saturation 96% on room air, blood pressure 136/52. Right first toe slightly erythemat ous. Left knee slightly warm, but not erythematous. Resisted range of motion. Cardiovascular syste m: Mechanical heart sounds. INITIAL LABS: White count 21.4, hemoglobin 8.8, hematocrit 27, platelets of 384, sed rate greater th an 120. INR of 2.09. Sodium 130, potassium 4.9, chloride 92, bicarbonate 22, BUN 50, creatinine 2.4 5, glucose 102, lactate acid 1.1. Uric acid 4.2. Calcium 8. Normal LFTs. He was admitted with a differential diagnosis of gout with septic arthritis. He seemed to have a sys temic inflammatory response. CONSULTATIONS: He was seen in consultation by Dr. Jesus Silva on 06/12/19. He had researched his pre vious aspiration that showed uric acid crystals. He felt at that time this was acute gout and recomm ended an arthroscopy. The arthroscopy was performed 06/13/19 and the detailed description is in his electronic record; however, he had lavage and debridement. Consultation with Dr. Ferdinand Guadalupe. 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 INVESTIGATIONS: Laboratory: His initial white count was 21.4 with 88.5% neutrophils. By the day of discharge, his white count was 11.5 and his neutrophil percent was 76.6. He developed progressive a nemia. On 06/13/19, his hemoglobin was 6.6, hematocrit 19 and I transfused him 2 units of packed red cells. His hemoglobin on the day of discharge was 11, hematocrit 33. Other investigations: His C-reactive protein came down from 502.2 to 94.24 on the day of discharge. His calcium declined, at presentation it was 8 and it came down to 6.3 on 06/13/19, on the day of vernon fernandez at 8.5. I stopped his cinacalcet and gave him parenteral and oral calcium plus some calcitri ol to which he responded. His intact PTH was 26.4 with a simultaneous calcium of 6.1 suggesting that the cinacalcet was respons ible for low calcium in view of his acute illness. He had monosodium urate crystals from his knee aspiration. Microbiology was entirely negative and PCR was negative for MRSA and Staph aureus. IMAGING: Chest x-ray on 06/12/19: Cardiomegaly, COPD, small bilateral pleural effusions. EKG: Sin us rhythm, right bundle-branch block, rate 76, MI 147, QTC 486, QRS axis -20. HOSPITAL COURSE: Dylan Sultana was in extreme pain at his admission. He had an acute systemic infla mmatory response. At first, it was unclear if this was infectious or inflammatory due to crystal art hropathy, hence we gave him ceftriaxone for the first few days to cover infection and this was stoppe d when it was clear that the cultures were all negative. We also treated him with prednisone, mainta ined his Uloric, and in the penultimate day in the hospital, started him on some colchicine. The art hroscopy gave him maximal symptomatic relief. 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 Anemia: This was likely due to a combination of chronic iron deficiency anemia and also acute phase response. He responded to a blood transfusion with 2 units of packed cells. On the day of discharge, he is feeling much better, he was able to walk a few steps with PT and OT th e penultimate day in the hospital. Cardiovascular system: No chest pain, shortness of breath, or pa lpitations. Respiratory system: No productive cough or hemoptysis. Gastrointestinal system: He donnelly s good appetite. No nausea or vomiting. He has had a single bowel movement. Genitourinary system: N o problems. His pain level is now well controlled. His left great toe hurt somewhat, but this has b een assisted by the small dose of colchicine he is receiving. PHYSICAL EXAMINATION ON THE DAY OF DISCHARGE: Temperature 98 degrees Fahrenheit, heart rate 96, resp irations 18, oxygen saturation 98% on room air, blood pressure 147/64. He has no cyanosis, edema, ja undice, clubbing, or lymphadenopathy. Cardiovascular System: Pulse is regular, normal character and volume. Heart sounds were prosthetic with mechanical heart valve. No murmurs. He has edema of the left foot due to tight bandaging of his left knee. His right toes are not red, inflamed, or hot. Re spiratory System: His chest was clear. Abdomen: No distention, masses, tenderness, or organomegaly . He is alert and oriented, moving all limbs. Normal speech, normal affect. ASSESSMENT AND PLAN: 1. Acute episode of gout in multiple joints, left knee and both great toes, and possibly his kidneys . He has responded to arthroscopy, prednisone, and colchicine. He had a massive acute phase response , which is now improving. He is ready for discharge. 2. Anemia. This was controlled with blood transfusion. 3. Hypocalcemia. This was controlled by stopping his cinacalcet. 4. Anticoagulation. His INR today is elevated at 4.17. I will hold his warfarin for 24 hours and t hen he will restart his usual outpatient dose. 5. Type 2 diabetes. He required insulin in the hospital owing to the steroids. He will no longer re quire this as an outpatient. 6. Secondary diagnoses: Diverticulosis, esophageal stricture, anxiety disorder, mechanical heart va lve aortic valve, hyperlipidemia, hypertension, hypothyroidism, right bundle-branch block on his EKG, stage III renal failure, secondary hyperparathyroidism, thoracic aortic aneurysm. These are all sta ble. DISCHARGE MEDICATIONS: 1. Colchicine 0.3 mg every 6 hours to reduce, will stop if he develops diarrhea. 2. Prednisone 10 mg a day for 5 days, 5 mg a day for 5 days, then discontinue. 3. Calcium carbonate as Tums 750 mg twice daily. 4. Finasteride 5 mg daily. 5. Sitagliptin 25 mg daily. 6. Pravastatin 10 mg q.h.s. 7. Tamsulosin 0.4 mg q.h.s. 8. Fluticasone 2 sprays both nares each evening. 9. Amlodipine 5 mg twice daily. 10. Hyoscyamine 0.125 mg 3 times a day as needed for spasms. 11. Chlorthalidone 12.5 mg daily. 12. FiberCon 1 a day. 13. Cetirizine 10 mg a day as needed for allergies. 14. Febuxostat (Uloric) 40 mg every day. 15. Aspirin 81 mg a day. 16. Acetaminophen 650 mg q.6 hours as needed for pain or fever. 17. Multivitamin 1 a day. 18. Levothyroxine 50 plus 75 mcg a day. 19. Warfarin 1 mg a day except Fridays 2 mg. He will hold for 24 hours. 20. Tramadol 50 mg every 6 hours as needed. 21. Losartan 50 mg a day. 22. Diclofenac topical to apply twice daily. 23. Mirabegron 50 mg daily. [id number]/[facility] #: [id number]
[2019-06-16 15:14] LABS: Hepatitis B Surface Antigen Nonreactive (Nonreactive)
[2019-06-16 16:28] LABS: Hepatitis C Antibody Negative (Negative)
[2019-06-18 12:34] LABS: Calcitriol 13 pg/mL (18-64)
== END 2019-06-15 11:05 | disposition home or self-care (01) | DRG 854 ==
LOC: ED 16:58 → MED 23:31
PROVIDERS: ADMIT Internal Medicine; ATTEND Internal Medicine
PROC: 0SBD4ZZ Excision of Left Knee Joint, Percutaneous Endoscopic Approach (ICD-10-PCS; principal; 2019-06-12 16:00)
PROC: 30233N1 Transfusion of Nonautologous Red Blood Cells into Peripheral Vein, Percutaneous Approach (ICD-10-PCS; 2019-06-13)
DX: A41.9 Sepsis, unspecified organism (principal); M00.9 Pyogenic arthritis, unspecified; N17.9 Acute kidney failure, unspecified; N25.81 Secondary hyperparathyroidism of renal origin; M10.362 Gout due to renal impairment, left knee; M17.11 Unilateral primary osteoarthritis, right knee; E78.00 Pure hypercholesterolemia, unspecified; E03.9 Hypothyroidism, unspecified; N40.0 Benign prostatic hyperplasia without lower urinary tract symptoms; E78.5 Hyperlipidemia, unspecified; I25.10 Atherosclerotic heart disease of native coronary artery without angina pectoris; R79.1 Abnormal coagulation profile; F41.1 Generalized anxiety disorder; K57.90 Diverticulosis of intestine, part unspecified, without perforation or abscess without bleeding; E11.22 Type 2 diabetes mellitus with diabetic chronic kidney disease; D50.9 Iron deficiency anemia, unspecified; I12.9 Hypertensive chronic kidney disease with stage 1 through stage 4 chronic kidney disease, or unspecified chronic kidney disease; K22.2 Esophageal obstruction; I71.2 Thoracic aortic aneurysm, without rupture; N18.3 Chronic kidney disease, stage 3 (moderate); E11.65 Type 2 diabetes mellitus with hyperglycemia; E83.51 Hypocalcemia; I45.10 Unspecified right bundle-branch block; T38.0X5A Adverse effect of glucocorticoids and synthetic analogues, initial encounter; M10.372 Gout due to renal impairment, left ankle and foot; M10.371 Gout due to renal impairment, right ankle and foot; Z79.82 Long term (current) use of aspirin; Z79.890 Hormone replacement therapy; Z85.47 Personal history of malignant neoplasm of testis; Z95.2 Presence of prosthetic heart valve; Z92.3 Personal history of irradiation; Y92.9 Unspecified place or not applicable
CPT/HCPCS: 36415; 71046; 80048; 80053; 82272; 82306; 82310; 82330; 82570; 82652; 83605; 83970; 84540; 84550; 85025; 85610; 85652; 86140; 86803; 86850; 86900; 86901; 86922; 87040; 87070; 87073; 87205; 87340; 87389; 87640; 87641; 88304; 89060; 93005; 99283; A9270-GY; J0610; J0696; J2001; J2250; J2405; J2704; J3010; J7512; P9040

== ENCOUNTER 2020-01-06 12:09 | Observation (INO) ==
[2020-01-06 13:21] LABS: ABS Lymphocytes 0.7 10^3/ul (1.0-4.8); ABS Monocytes 1.1 10^3/ul (0-0.8); ABS Neutrophils 7.3 10^3/ul (1.5-7.7); Eosinophil % 0.2 %; Hematocrit 29 % (42-52); Hemoglobin 9.6 g/dL (14.0-18.0); Lymphocyte % 7.8 %; Mean Corpuscular HGB Conc 34 g/dL (31-36); Mean Corpuscular Hemoglobin 34 pg (27-31); Mean Corpuscular Volume 101 fL (80-94); Mean Platelet Volume 6.7 fL (7.4-10.4); Platelet Count 301 10^3/uL (150-450); Red Blood Count 2.84 10^6 /uL (4.18-5.48); Red Cell Distribution Width 15 % (10-15); White Blood Count 9.1 10^3/uL (3.5-10.8)
[2020-01-06 13:41] LABS: ALT 17 U/L (7-52); AST 17 U/L (13-39); Albumin 4.4 g/dL (3.2-5.2); Albumin/Globulin Ratio 1.8 (1-3); Alkaline Phosphatase 28 U/L (34-104); Anion Gap 7 mmol/L (2-11); Blood Urea Nitrogen 53 mg/dL (6-24); CO2 Carbon Dioxide 26 mmol/L (22-32); Calcium 9.7 mg/dL (8.6-10.3); Chloride 105 mmol/L (101-111); EGFR African American 42.5 (>60); EGFR Non-African American 35.1 (>60); Globulin 2.4 g/dL (2-4); Glucose 236 mg/dL (70-100); Potassium 4.3 mmol/L (3.5-5.0); Sodium 138 mmol/L (135-145); Total Protein 6.8 g/dL (6.4-8.9)
[2020-01-06 13:48] LABS: Troponin I 0.05 ng/mL (<0.03)
[2020-01-06] MEDS ORDERED: Furosemide 40 mg/4 ml IV VIAL IV ONE (14:10)
[2020-01-06] MEDS ORDERED: Nitro 2% OINT (Nitroglycerin) 1 INCH/PAK TOPICAL ONE (14:10)
[2020-01-06] MEDS ORDERED: Iodixanol (CONTRAST) 320 MG/ML 100 ML SDV IV ONE (16:12)
[2020-01-06] MEDS ORDERED: Ondansetron 4 mg VIAL 2 MG/ML 2 ml VIAL IV PRN (17:35)
[2020-01-06] MEDS ORDERED: Oxymetazoline 0.05% NASAL SPR 15 ML BTL BOTH NARES ONE (17:55)
[2020-01-06 18:00] LABS: Folate > 20.00 ng/mL (>3.99)
[2020-01-06 18:01] LABS: Vitamin B12 678 pg/mL (180-914)
[2020-01-06 19:09] LABS: Magnesium 1.9 mg/dL (1.9-2.7)
[2020-01-06] MEDS ORDERED: Dextrose 50% Syringe 50 ml 25 GM/50 ML SYRINGE IV PUSH PRN (19:12)
[2020-01-06 21:36] LABS: Troponin I 0.16 ng/mL (<0.03)
[2020-01-06] MEDS ORDERED: Magnesium Sulfate IV 1GM/100ML 1 GM/100 ML BAG IV ONE (22:38)
[2020-01-07 01:26] LABS: Troponin I 0.18 ng/mL (<0.03)
[2020-01-07 05:47] LABS: ABS Eosinophils 0.1 10^3/ul (0-0.6); ABS Lymphocytes 0.8 10^3/ul (1.0-4.8); ABS Monocytes 1.4 10^3/ul (0-0.8); ABS Neutrophils 8.8 10^3/ul (1.5-7.7); Eosinophil % 0.6 %; Hematocrit 26 % (42-52); Hemoglobin 8.7 g/dL (14.0-18.0); Lymphocyte % 7.3 %; Mean Corpuscular HGB Conc 34 g/dL (31-36); Mean Corpuscular Hemoglobin 34 pg (27-31); Mean Corpuscular Volume 101 fL (80-94); Mean Platelet Volume 6.8 fL (7.4-10.4); Platelet Count 275 10^3/uL (150-450); Red Blood Count 2.56 10^6 /uL (4.18-5.48); Red Cell Distribution Width 15 % (10-15); White Blood Count 11.1 10^3/uL (3.5-10.8)
[2020-01-07 06:07] LABS: Anion Gap 6 mmol/L (2-11); BUN/Creatinine Ratio 26.7 (8-20); Blood Urea Nitrogen 55 mg/dL (6-24); CO2 Carbon Dioxide 27 mmol/L (22-32); Calcium 8.8 mg/dL (8.6-10.3); Chloride 108 mmol/L (101-111); EGFR African American 38.5 (>60); EGFR Non-African American 31.8 (>60); Glucose 113 mg/dL (70-100); Magnesium 2.4 mg/dL (1.9-2.7); Potassium 4.7 mmol/L (3.5-5.0); Sodium 141 mmol/L (135-145)
[2020-01-07 06:25] LABS: INR 3.4 (0.82-1.09)
[2020-01-07 06:30] LABS: Troponin I 0.22 ng/mL (<0.03)
[2020-01-07] MEDS: Furosemide 40 mg/4 ml IV VIAL IV SCH (09:32)
[2020-01-07] MEDS: Aspirin EC 81 mg TAB.EC (enteric coated) PO SCH (09:32)
[2020-01-07] MEDS: Multivitamins/Minerals TAB PO SCH (09:33)
[2020-01-07] MEDS: Polyethylene Glycol 3350 17 GM PACKET PO SCH (09:34)
[2020-01-07] MEDS: CMCS: Febuxostat 40 mg TAB (NF) PO SCH (09:35)
[2020-01-07] MEDS: Fluticasone NASAL SPRAY 50MCG 16 gm SPRAY BTL BOTH NARES SCH ×2 (09:35→09:39)
[2020-01-07] MEDS: CMCS: Pravastatin 20 mg TAB (NF) PO SCH (09:35)
[2020-01-07 09:44] LABS: Troponin I 0.24 ng/mL (<0.03)
[2020-01-07] MEDS ORDERED: Warfarin per PHARMACY **NOTE FOLLOW UP SCH (13:00)
[2020-01-07 13:36] LABS: Troponin I 0.23 ng/mL (<0.03)
[2020-01-07] MEDS: Iron Sucrose 200 MG in NS 0.9% 100 ml BAG 100 ML IVPB SCH (14:19)
[2020-01-07 14:26] LABS: % Iron Saturation 10 % (15-55); Iron 34 ug/dL (50-212); LDH 241 U/L (140-271); Total Iron Binding Capacity 344 mcg/dL (250-450); Transferrin 246 mg/dL (203-362); Unsaturated Iron Binding < 329 ug/dL
[2020-01-07 14:48] LABS: Ferritin 146.9 ng/mL (24-336)
[2020-01-07 15:17] LABS: Corrected Retic Count 0.8 % (0.5-1.5); Hematocrit for Retic CNT 26 % (42-52); Immature Retic Fraction 0.59; RBC Retic Count 2.54 10^6/uL (4.18-5.48)
[2020-01-07 17:09] LABS: Troponin I 0.21 ng/mL (<0.03)
[2020-01-08 06:32] LABS: ABS Eosinophils 0.2 10^3/ul (0-0.6); ABS Lymphocytes 0.6 10^3/ul (1.0-4.8); ABS Monocytes 1.2 10^3/ul (0-0.8); ABS Neutrophils 6.6 10^3/ul (1.5-7.7); Eosinophil % 1.9 %; Hematocrit 24 % (42-52); Hemoglobin 8.4 g/dL (14.0-18.0); Lymphocyte % 7.1 %; Mean Corpuscular HGB Conc 35 g/dL (31-36); Mean Corpuscular Hemoglobin 35 pg (27-31); Mean Corpuscular Volume 100 fL (80-94); Mean Platelet Volume 6.7 fL (7.4-10.4); Platelet Count 240 10^3/uL (150-450); Red Cell Distribution Width 15 % (10-15); White Blood Count 8.6 10^3/uL (3.5-10.8)
[2020-01-08 06:43] LABS: INR 2.94 (0.82-1.09)
[2020-01-08 06:53] LABS: BUN/Creatinine Ratio 23.9 (8-20); C Reactive Protein 11.39 mg/L (<8.01); Calcium 8.7 mg/dL (8.6-10.3); EGFR African American 33.9 (>60); Potassium 4.6 mmol/L (3.5-5.0)
[2020-01-08] MEDS: Furosemide 40 mg/4 ml IV VIAL IV SCH ×2 (07:56→11:05)
[2020-01-08] MEDS: Aspirin EC 81 mg TAB.EC (enteric coated) PO SCH (07:57)
[2020-01-08] MEDS: Multivitamins/Minerals TAB PO SCH (07:58)
[2020-01-08] MEDS: Polyethylene Glycol 3350 17 GM PACKET PO SCH (08:05)
[2020-01-08] MEDS: Fluticasone NASAL SPRAY 50MCG 16 gm SPRAY BTL BOTH NARES SCH (08:05)
[2020-01-08] MEDS ORDERED: Aminophylline 25 MG/ML VIAL ONE (08:33)
[2020-01-08] MEDS ORDERED: Regadenoson 0.4 MG/5 ML SYRINGE ONE (08:33)
[2020-01-08 09:32] LABS: Erythrocyte Sed Rate 9 mm/Hr (0-19)
[2020-01-08] MEDS: Iron Sucrose 200 MG in NS 0.9% 100 ml BAG 100 ML IVPB SCH (11:03)
[2020-01-08] MEDS: CMCS: Febuxostat 40 mg TAB (NF) PO SCH (11:04)
[2020-01-08] MEDS: CMCS: Pravastatin 20 mg TAB (NF) PO SCH (11:04)
[2020-01-08 15:03] VITALS: BP 139/59
== END 2020-01-08 15:36 | disposition home or self-care (01) ==
LOC: MEDTELE 12:09 → ED 12:09 → MEDTELE 19:52
PROVIDERS: ADMIT Physician Assistant; ATTEND Internal Medicine

== ENCOUNTER 2023-07-20 14:02 | Inpatient (IN) ==
[2023-07-20] MEDS ORDERED: NS 0.9% 1000 ml BAG 200 ML IV PRN (16:13)
[2023-07-20] MEDS ORDERED: NS 0.9% 1000 ml BAG 100 ML IV PRN (16:13)
[2023-07-20 16:22] LABS: ABS Lymphocytes 0.3 10^3/uL (1.0-4.8); ABS Monocytes 0.7 10^3/uL (0.0-1.1); ABS Neutrophils 7.6 10^3/uL (1.5-7.6); Hematocrit 26.8 % (38-53); Hemoglobin 9.3 g/dL (13.2-16.3); Lymphocyte % 3.2 %; Mean Corpuscular Hemoglobin 34.6 pg (27-33); Mean Corpuscular Hgb Conc 34.5 g/dL (31-36); Mean Corpuscular Volume 100.2 fL (80-97); Mean Platelet Volume 7.8 fL (7.5-11.2); Platelet Count 241 10^3/uL (150-450); Red Blood Count 2.68 10^6/uL (4.06-5.63); Red Cell Distribution Width 15.2 % (12-17); White Blood Count 8.7 10^3/uL (3.6-10.2)
[2023-07-20 17:17] LABS: Albumin 4.7 g/dL (3.2-5.2); Albumin/Globulin Ratio 1.7 (1-3); Calcium 10.3 mg/dL (8.6-10.3); Creatinine, Serum 3.84 mg/dL (0.67-1.17); Globulin 2.8 g/dL (2-4); Potassium 5.8 mmol/L (3.5-5.0); Total Bilirubin 0.4 mg/dL (0.2-1.0); Total Protein 7.5 g/dL (6.4-8.9); eGFR CKD-EPI 15.4 (>60)
[2023-07-20] MEDS: Sodium Polystyrene ORAL.SUSP 15 GM/60 ML BTL PO ONE (17:47)
[2023-07-20] MEDS: Bumetanide IV 0.25 MG/ML 4 ml VIAL (1 mg) IV SLOW PU ONE (17:48)
[2023-07-20] MEDS ORDERED: Dextrose 50% Syringe 50 ml 25 GM/50 ML SYRINGE IV PUSH PRN (19:00)
[2023-07-20 19:07] LABS: Urine Appearance Clear; Urine Bilirubin Negative (Negative); Urine Blood Negative (Negative); Urine Color Light-Yellow; Urine Glucose Negative (Negative); Urine Ketones Negative (Negative); Urine Nitrite Negative (Negative); Urine Protein 1+ (>=30 mg/dL) (Negative); Urine Specific Gravity 1.013 (1.002-1.030); Urine Urobilinogen Negative (Negative)
[2023-07-20 19:24] LABS: Hepatitis B Surface Antigen Nonreactive (Nonreactive)
[2023-07-20 19:37] LABS: Urine Bacteria 1+ /HPF (Absent); Urine Red Blood Cell 1+(3-5/hpf) /HPF (0-Trace); Urine White Blood Cell Trace(0-5/hpf) /HPF (0-Trace)
[2023-07-20 19:41] LABS: Hepatitis B Surface Ab Not Immune (Immune)
[2023-07-20] MEDS: Bumetanide IV 0.25 MG/ML 4 ml VIAL (1 mg) IV SLOW PU SCH (21:03)
[2023-07-20 21:20] LABS: INR 1.02 (0.83-1.13)
[2023-07-20] MEDS: Heparin DRIP 25,000 UNITS BAG 25,000 UNITS/250 ML BAG IV SCH (23:49)
[2023-07-21 02:12] LABS: Calcium 10.1 mg/dL (8.6-10.3); Creatinine, Serum 3.95 mg/dL (0.67-1.17); Potassium 4.9 mmol/L (3.5-5.0); eGFR CKD-EPI 14.9 (>60)
[2023-07-21 06:13] LABS: ABS Lymphocytes 0.4 10^3/uL (1.0-4.8); ABS Monocytes 1.1 10^3/uL (0.0-1.1); ABS Neutrophils 9.3 10^3/uL (1.5-7.6); Hematocrit 23.1 % (38-53); Hemoglobin 8.1 g/dL (13.2-16.3); Mean Corpuscular Hemoglobin 34.8 pg (27-33); Mean Corpuscular Hgb Conc 35.2 g/dL (31-36); Mean Corpuscular Volume 98.7 fL (80-97); Mean Platelet Volume 7.5 fL (7.5-11.2); Platelet Count 220 10^3/uL (150-450); Red Blood Count 2.34 10^6/uL (4.06-5.63); White Blood Count 10.8 10^3/uL (3.6-10.2)
[2023-07-21 06:19] LABS: INR 1.08 (0.83-1.13)
[2023-07-21] MEDS ORDERED: Heparin DRIP 25,000 UNITS BAG 25,000 UNITS/250 ML BAG IV SCH (06:45)
[2023-07-21] MEDS: Heparin 5000 UNITS/ML 1 mL VIAL IV SCH (07:13)
[2023-07-21 07:26] LABS: Anion Gap 14 mmol/L (2-16); CO2 Carbon Dioxide 20 mmol/L (22-32); Calcium 9.4 mg/dL (8.6-10.3); Chloride 105 mmol/L (101-111); Glucose 156 mg/dL (70-100); Potassium 4.1 mmol/L (3.5-5.0); Sodium 139 mmol/L (135-145)
[2023-07-21 07:27] LABS: ALT 17 U/L (7-52); AST 22 U/L (13-39); Albumin/Globulin Ratio 1.6 (1-3); Alkaline Phosphatase 35 U/L (35-149); Creatinine, Serum 3.63 mg/dL (0.67-1.17); Globulin 2.5 g/dL (2-4); Magnesium 2.1 mg/dL (1.9-2.7); Total Bilirubin 0.3 mg/dL (0.2-1.0); Total Protein 6.5 g/dL (6.4-8.9); eGFR CKD-EPI 16.5 (>60)
[2023-07-21 07:33] LABS: Folate > 20.00 ng/mL (5.90-24.80); Vitamin B12 811 pg/mL (180-914)
[2023-07-21 09:10] LABS: Blood Urea Nitrogen 166 mg/dL (6-24)
[2023-07-21] MEDS ORDERED: Lidocaine 1% VIAL 10 MG/ML 30 ML VIAL ONE (12:45)
[2023-07-21] MEDS ORDERED: Heparin 2 UNITS/ML IVPREMIX 1,000 UNIT/500 ML BAG IV ONE (12:45)
[2023-07-21] MEDS ORDERED: Midazolam 5 mg/5 ml VIAL 1 mg/ml 5 ml VIAL (5 mg) ONE (12:55)
[2023-07-21] MEDS ORDERED: fentaNYL 100 mcg/2 ml 50 MCG/ML VIAL ONE (12:55)
[2023-07-21] MEDS: Heparin 1,000 UNIT/ML 10 ml (10,000 UNITS) CATHLAB/DIALYSIS DIALYSIS PRN (13:55)
[2023-07-21] MEDS: Albumin Human 25% 25 GM/100 ML BTL IV PRN (16:27)
[2023-07-21] MEDS: Vitamin THERAPEUTIC TAB PO SCH (17:30)
[2023-07-21] MEDS: Aspirin EC 81 mg TAB.EC (enteric coated) PO SCH (17:30)
[2023-07-21] MEDS: Calcium Polycarbophil 625mg TB PO SCH (17:30)
[2023-07-21] MEDS: CMCS: Febuxostat 40 mg TAB (NF) PO SCH (17:30)
[2023-07-21] MEDS: Clindamycin 600 MG/D5W BAG 600 MG/50 ML BAG IV ONE (17:33)
[2023-07-21] MEDS: Sodium Bicarb 650 mg (ANTACID) TAB PO SCH (17:44)
[2023-07-21] MEDS ORDERED: Warfarin per PHARMACY **NOTE FOLLOW UP SCH (19:00)
[2023-07-22 06:19] LABS: ABS Lymphocytes 0.9 10^3/uL (1.0-4.8); ABS Neutrophils 8.8 10^3/uL (1.5-7.6); Hematocrit 27.4 % (38-53); Hemoglobin 9.4 g/dL (13.2-16.3); Lymphocyte % 8.7 %; Mean Corpuscular Hemoglobin 34.5 pg (27-33); Mean Corpuscular Hgb Conc 34.4 g/dL (31-36); Mean Corpuscular Volume 100.3 fL (80-97); Platelet Count 233 10^3/uL (150-450); Red Blood Count 2.73 10^6/uL (4.06-5.63); Red Cell Distribution Width 15.2 % (12-17); White Blood Count 10.8 10^3/uL (3.6-10.2)
[2023-07-22 06:26] LABS: INR 1.05 (0.83-1.13)
[2023-07-22 06:56] LABS: Albumin 4.8 g/dL (3.2-5.2); Albumin/Globulin Ratio 1.9 (1-3); Calcium 9.6 mg/dL (8.6-10.3); Creatinine, Serum 2.86 mg/dL (0.67-1.17); Globulin 2.5 g/dL (2-4); Magnesium 1.9 mg/dL (1.9-2.7); Phosphorus 6.1 mg/dL (2.5-5.0); Total Bilirubin 0.7 mg/dL (0.2-1.0); Total Protein 7.3 g/dL (6.4-8.9)
[2023-07-22] MEDS: Magnesium Sulfate IV 1GM/100ML 1 GM/100 ML BAG IV ONE (08:23)
[2023-07-22] MEDS: Warfarin DAILY REMINDER **NOTE FOLLOW UP SCH (18:13)
[2023-07-22] MEDS: Cetirizine 5 mg CHEW TAB PO SCH (20:49)
[2023-07-23 06:14] LABS: Hematocrit 22.8 % (38-53); Hemoglobin 7.9 g/dL (13.2-16.3); Mean Corpuscular Hemoglobin 34.3 pg (27-33); Mean Corpuscular Hgb Conc 34.5 g/dL (31-36); Mean Corpuscular Volume 99.4 fL (80-97); Mean Platelet Volume 8.2 fL (7.5-11.2); Platelet Count 192 10^3/uL (150-450); Red Cell Distribution Width 14.6 % (12-17); White Blood Count 10.5 10^3/uL (3.6-10.2)
[2023-07-23 06:21] LABS: INR 1.2 (0.83-1.13)
[2023-07-23 06:37] LABS: ABS Lymphocytes 0.5 10^3/uL (1.0-4.8); ABS Monocytes 1.7 10^3/uL (0.0-1.1); ABS Neutrophils 8.3 10^3/uL (1.5-7.6); Eosinophil % 0.1 %; Lymphocyte % 4.7 %
[2023-07-23 06:39] LABS: Albumin/Globulin Ratio 1.8 (1-3); Calcium 8.6 mg/dL (8.6-10.3); Creatinine, Serum 2.96 mg/dL (0.67-1.17); Globulin 2.2 g/dL (2-4); Magnesium 1.8 mg/dL (1.9-2.7); Phosphorus 4.2 mg/dL (2.5-5.0); Potassium 4.2 mmol/L (3.5-5.0); Total Bilirubin 0.4 mg/dL (0.2-1.0); Total Protein 6.2 g/dL (6.4-8.9); eGFR CKD-EPI 21.1 (>60)
[2023-07-23 23:05] LABS: Hematocrit 20.1 % (38-53); Hemoglobin 6.9 g/dL (13.2-16.3)
[2023-07-24 06:36] LABS: INR 1.79 (0.83-1.13)
[2023-07-24 06:40] LABS: ABS Lymphocytes 0.7 10^3/uL (1.0-4.8); ABS Monocytes 1.2 10^3/uL (0.0-1.1); ABS Neutrophils 7.9 10^3/uL (1.5-7.6); ABS Nucleated RBC 0.01 10^3/ul; Hematocrit 23.9 % (38-53); Hemoglobin 8.4 g/dL (13.2-16.3); Lymphocyte % 6.7 %; Mean Corpuscular Hemoglobin 33.4 pg (27-33); Mean Corpuscular Hgb Conc 35.2 g/dL (31-36); Mean Corpuscular Volume 95.1 fL (80-97); Mean Platelet Volume 8.2 fL (7.5-11.2); Nucleated Red Blood Cells % 0.1 %/100WBC (0.0-0.8); Platelet Count 158 10^3/uL (150-450); Red Blood Count 2.51 10^6/uL (4.06-5.63); Red Cell Distribution Width 18.1 % (12-17); White Blood Count 9.8 10^3/uL (3.6-10.2)
[2023-07-24 06:50] LABS: Calcium 8.1 mg/dL (8.6-10.3); Creatinine, Serum 2.97 mg/dL (0.67-1.17); Potassium 4.1 mmol/L (3.5-5.0)
[2023-07-24 08:30] LABS: Magnesium 1.8 mg/dL (1.9-2.7)
[2023-07-25 05:03] LABS: ABS Lymphocytes 0.5 10^3/uL (1.0-4.8); ABS Monocytes 1.2 10^3/uL (0.0-1.1); ABS Neutrophils 6.9 10^3/uL (1.5-7.6); Eosinophil % 0.2 %; Hematocrit 23.3 % (38-53); Lymphocyte % 6.3 %; Mean Corpuscular Hemoglobin 32.9 pg (27-33); Mean Corpuscular Hgb Conc 34.4 g/dL (31-36); Mean Corpuscular Volume 95.9 fL (80-97); Mean Platelet Volume 8.4 fL (7.5-11.2); Platelet Count 159 10^3/uL (150-450); Red Blood Count 2.43 10^6/uL (4.06-5.63); Red Cell Distribution Width 18.3 % (12-17); White Blood Count 8.6 10^3/uL (3.6-10.2)
[2023-07-25 05:17] LABS: INR 2.07 (0.83-1.13)
[2023-07-25 05:31] LABS: Calcium 8.3 mg/dL (8.6-10.3); Creatinine, Serum 1.88 mg/dL (0.67-1.17); eGFR CKD-EPI 36.3 (>60)
[2023-07-25 09:51] VITALS: BP 137/54
[2023-07-27 12:43] LABS: TB1 Ag minus Nil Result -0.02 IU/mL; TB2 Ag minus Nil Result -0.02 IU/mL
[2023-07-27 12:44] LABS: QuantiferonTb Gold Plus Result Negative (Negative)
== END 2023-07-25 12:28 | disposition home or self-care (01) | DRG 640 ==
LOC: EDHOLD 14:02 → ED 14:02 → SUATTDRO 16:09 → OBSVTOIN 16:09 → MEDTELE 19:33
PROVIDERS: ADMIT Internal Medicine; ATTEND Internal Medicine

== ENCOUNTER 2024-04-28 07:11 | Inpatient (IN) ==
[2024-04-28 08:13] LABS: ABS Basophils 0.2 10^3/uL (0.0-0.1); ABS Lymphocytes 0.5 10^3/uL (1.0-4.8); ABS Monocytes 0.7 10^3/uL (0.0-1.1); ABS Neutrophils 9.3 10^3/uL (1.5-7.6); Eosinophil % 0.3 %; Hematocrit 28.8 % (38-53); Hemoglobin 9.9 g/dL (13.2-16.3); Mean Corpuscular Hemoglobin 35.5 pg (27-33); Mean Corpuscular Hgb Conc 34.2 g/dL (31-36); Mean Corpuscular Volume 103.7 fL (80-97); Mean Platelet Volume 8.7 fL (7.5-11.2); Platelet Count 312 10^3/uL (150-450); Red Blood Count 2.78 10^6/uL (4.06-5.63); Red Cell Distribution Width 20.4 % (12-17); White Blood Count 10.7 10^3/uL (3.6-10.2)
[2024-04-28 08:51] LABS: Albumin 4.3 g/dL (3.2-5.2); Albumin/Globulin Ratio 1.8 (1-3); C Reactive Protein 7.31 mg/L (<8.01); Calcium 9.3 mg/dL (8.6-10.3); Creatinine, Serum 4.31 mg/dL (0.67-1.17); Globulin 2.4 g/dL (2-4); Potassium 3.7 mmol/L (3.5-5.0); Total Bilirubin 0.7 mg/dL (0.2-1.0); Total Protein 6.7 g/dL (6.4-8.9); eGFR CKD-EPI 13.3 (>60)
[2024-04-28] MEDS: Morphine 4 MG/ML VIAL (1 ml) IV ONE (09:33)
[2024-04-28] MEDS: NS 0.9% 500 ml BAG 500 ML IV ONE (09:33)
[2024-04-28] MEDS: Ondansetron 4 mg VIAL 2 MG/ML 2 ml VIAL IV ONE (09:33)
[2024-04-28] MEDS ORDERED: Al Hydrox/Mg Hydrox/Simet LIQ 30 ML UDC PO PRN (10:51)
[2024-04-28 11:22] LABS: INR 3.23 (0.85-1.14)
[2024-04-28] MEDS: HYDROmorphone 0.5 MG/0.5 ML SYRINGE IV PRN (11:52)
[2024-04-28] MEDS ORDERED: NS 0.9% 1000 ml BAG 100 ML IV PRN (13:11)
[2024-04-28] MEDS ORDERED: NS 0.9% 1000 ml BAG 200 ML IV PRN (13:11)
[2024-04-28 14:32] LABS: Hepatitis B Surface Ab Not Immune (Immune)
[2024-04-28 15:10] LABS: Urine Appearance Clear; Urine Bilirubin Negative (Negative); Urine Blood Trace (Negative); Urine Color Yellow; Urine Glucose Negative (Negative); Urine Ketones Trace (Negative); Urine Nitrite Negative (Negative); Urine Protein 2+ (>=100 mg/dL) (Negative); Urine Specific Gravity 1.021 (1.002-1.030); Urine Urobilinogen Negative (Negative)
[2024-04-28 15:11] LABS: Urine Bacteria Absent /HPF (Absent); Urine Red Blood Cell Trace(0-2/hpf) /HPF (0-Trace); Urine Squamous Epithelial Cell Present /HPF (Absent); Urine White Blood Cell Trace(0-5/hpf) /HPF (0-Trace)
[2024-04-28] MEDS: HYDROmorphone 1 MG/1 ML SYRINGE IV PRN (16:35)
[2024-04-28] MEDS: Warfarin DAILY REMINDER **NOTE FOLLOW UP SCH (18:02)
[2024-04-28] MEDS ORDERED: Warfarin per PHARMACY **NOTE FOLLOW UP SCH (22:00)
[2024-04-29 04:38] LABS: Hepatitis B Surface Antigen Nonreactive (Nonreactive)
[2024-04-29 06:00] LABS: ABS Basophils 0.1 10^3/uL (0.0-0.1); ABS Lymphocytes 0.6 10^3/uL (1.0-4.8); ABS Monocytes 0.9 10^3/uL (0.0-1.1); ABS Neutrophils 8.8 10^3/uL (1.5-7.6); Eosinophil % 0.4 %; Hematocrit 27.6 % (38-53); Hemoglobin 9.3 g/dL (13.2-16.3); Lymphocyte % 5.7 %; Mean Corpuscular Hemoglobin 34.7 pg (27-33); Mean Corpuscular Hgb Conc 33.6 g/dL (31-36); Mean Corpuscular Volume 103.4 fL (80-97); Platelet Count 223 10^3/uL (150-450); Red Blood Count 2.67 10^6/uL (4.06-5.63); Red Cell Distribution Width 20.4 % (12-17); White Blood Count 10.4 10^3/uL (3.6-10.2)
[2024-04-29 06:13] LABS: INR 3.72 (0.85-1.14)
[2024-04-29 06:33] LABS: Calcium 8.4 mg/dL (8.6-10.3); Creatinine, Serum 4.4 mg/dL (0.67-1.17); Potassium 3.5 mmol/L (3.5-5.0)
[2024-04-29] MEDS: Heparin 1,000 UNIT/ML 10 ml (10,000 UNITS) CATHLAB/DIALYSIS DIALYSIS PRN (08:47)
[2024-04-29] MEDS: Albumin Human 25% 25 GM/100 ML BTL IV PRN (11:20)
[2024-04-29] MEDS: Aspirin EC 81 mg TAB.EC (enteric coated) PO SCH (12:47)
[2024-04-29] MEDS: Polyethylene Glycol 3350 17 GM PACKET PO PRN (15:21)
[2024-04-29] MEDS ORDERED: KCL 20 MEQ/100 ML IVPREMIX 20 MEQ/100 ML BAG IV SCH (16:00)
[2024-04-29] MEDS: Warfarin DAILY REMINDER **NOTE FOLLOW UP SCH (17:24)
[2024-04-29] MEDS: Magnesium Hydroxide LIQ 30 ML UDC PO SCH (21:15)
[2024-04-30 06:24] LABS: INR 4.45 (0.85-1.14)
[2024-04-30 06:54] LABS: Calcium 8.2 mg/dL (8.6-10.3); Creatinine, Serum 3.68 mg/dL (0.67-1.17); Potassium 4.2 mmol/L (3.5-5.0); eGFR CKD-EPI 16.1 (>60)
[2024-04-30 06:58] LABS: Hematocrit 25.8 % (38-53); Hemoglobin 8.5 g/dL (13.2-16.3); Mean Corpuscular Hemoglobin 34.4 pg (27-33); Mean Corpuscular Volume 104.2 fL (80-97); Mean Platelet Volume 7.4 fL (7.5-11.2); Platelet Count 187 10^3/uL (150-450); Red Blood Count 2.48 10^6/uL (4.06-5.63); White Blood Count 5.4 10^3/uL (3.6-10.2)
[2024-04-30 10:10] VITALS: BP 107/56
== END 2024-04-30 12:00 | disposition home or self-care (01) | DRG 391 ==
LOC: ED 07:11 → EDHOLD 07:11 → MED 11:08
PROVIDERS: ADMIT Internal Medicine; ATTEND Internal Medicine